=== PATIENT | female | born 1930 | race Caucasian/White ===

== ENCOUNTER 2017-03-30 14:15 | Emergency (ER) | payer MEDICARE, BC ==
--- NOTE | 2017-03-30 14:58 | EDM.PDOC ---
ED HISTORY OF PRESENT ILLNESS - General Chief Complaint: Respiratory Problem Stated Complaint: LEFT ARM BRUISING, SHORT OF BREATH Time Seen by Provider: 03/30/17 14:48 Source: Reports: Patient, Family, RN notes reviewed History Limitations: Reports: No limitations - History of Present Illness INITIAL COMMENTS - FREE TEXT/NARRATIVE: 86-year-old female presents emergency department today with complaint of shortness of breath, she states that over the last 3 or 4 days she's had more and more shortness of breath mainly when she exerts herself she feels fine at rest she also describes some chest discomfort may be rates 2/10 no diaphoresis no nausea vomiting - Related Data Allergies/ADRs: Allergies Allergy/AdvReac Type Severity Reaction Status Date / Time clindamycin Allergy Severe Difficulty Verified 11/26/16 10:26 Breathing ezetimibe [From Zetia] Allergy Severe Difficulty Verified 11/26/16 10:26 Breathing NSAIDS (Non-Steroidal Allergy Severe Airway Verified 11/26/16 10:26 Anti-Inflamma Tightness aspirin Allergy Intermediate Chest Pain Verified 11/26/16 10:26 ciprofloxacin HCl Allergy Rash Verified 11/26/16 10:26 [From Cipro] codeine Allergy Shortness Verified 11/26/16 10:26 of Breath pravastatin Allergy Other Verified 11/26/16 10:26 Sulfa (Sulfonamide Allergy Shortness Verified 12/23/16 09:37 Antibiotics) of Breath amoxicillin trihydrate AdvReac Stomach Verified 11/26/16 10:26 [From Augmentin] Upset atorvastatin calcium AdvReac Muscle Verified 11/26/16 10:26 [From Lipitor] Aches isosorbide mononitrate AdvReac Headache Verified 11/26/16 10:26 [From Imdur] morphine AdvReac Hallucinati Verified 11/26/16 10:26 ons potassium clavulanate AdvReac Stomach Verified 11/26/16 10:26 [From Augmentin] Upset pregabalin [From Lyrica] AdvReac Dizziness Verified 11/26/16 10:26 rosuvastatin calcium AdvReac Other Verified 11/26/16 10:26 [From Crestor] simvastatin [From Zocor] AdvReac Other Verified 11/26/16 10:26 Qlhjgqv-Glz-Egw Reductase AdvReac Muscle Verified 11/26/16 10:26 Inhibitor Aches Home Meds: Home Meds PARoxetine HCl [Paroxetine HCl] 20 mg PO DAILY 08/16/13 [History] Lactobacillus Acidophilus [Probiotic] 1 each PO DAILY 03/05/14 [History] Fluticasone Propionate [Flonase] 2 sprays INH ASDIRECTED PRN 07/05/14 [History] Nitroglycerin [Nitrostat] 0.4 mg SL ASDIRECTED 07/05/14 [History] Gabapentin 300 mg PO BID 07/24/14 [History] Arformoterol [Brovana] 1 puff INH BID PRN 08/04/15 [History] EPINEPHrine [Epipen] 0.3 mg IM ONETIME 08/04/15 [History] Furosemide [Lasix] 40 mg PO DAILY 08/04/15 [History] Levothyroxine [Synthroid] 112 mcg PO DAILY 08/04/15 [History] Omeprazole Magnesium [Prilosec Otc] 40 mg PO DAILY 08/04/15 [History] traZODone 40 mg PO BEDTIME PRN 08/04/15 [History] Acetaminophen [Tylenol] 650 mg PO Q4H PRN 12/09/15 [History] Meclizine [Antivert] 25 mg PO TID PRN 12/09/15 [History] Cetirizine [ZyrTEC] 10 mg PO DAILY 02/26/16 [History] Loperamide [Imodium AD] 2 mg PO TID PRN 02/28/16 [History] Warfarin [Coumadin] 2.5 - 5 mg PO ASDIRECTED 03/17/16 [History] Ferrous Sulfate [Iron] 325 mg PO DAILY 11/18/16 [History] cycloSPORINE [Restasis] 1 drop EYEBOTH BID 11/18/16 [History] Metoprolol Tartrate [Lopressor] 50 mg PO BID 11/26/16 [History] Past Medical History HEENT History: Reports: Allergic rhinitis, Cataract, Impaired vision, Sinusitis Cardiovascular History: Reports: Angina, Arrhythmia, Blood clots/VTE/DVT, CAD, Heart murmur, High cholesterol, Hypertension, [place], SOB on exertion Respiratory History: Reports: Bronchitis, recurrent, COPD, PE, Pneumonia, recurrent, Other (see below) Other Respiratory History: oxygen dependent @ times. 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: Dysfunctional uterine bleeding, Ectopic , Fibroids, , Spontaneous Musculoskeletal History: Reports: Arthritis, Back pain, chronic, Fibromyalgia, Neck pain, chronic, Osteoarthritis, Other (see below) Other Musculoskeletal History: polymyalgia miamyalgia Neurological History: Reports: Vertigo, Other (see below) Other Neuro History: bilateral optic neuropathy inner ear problems Psychiatric History: Reports: Anxiety, Depression Endocrine/Metabolic History: Reports: Hypothyroidism, Obesity/BMI 30+ Hematologic History: Reports: Anemia, Blood transfusion(s), Iron deficiency Oncologic (Cancer) History: Reports: Other (see below) Other Oncologic History: skin Dermatologic History: Reports: Other (see below) Other Dermatologic History: squamous cell CA- arm ,forehead - Infectious Disease History Infectious Disease History: Reports: C-difficile, Chicken pox, Hepatitis A, Measles, Mumps - Past Surgical History HEENT Surgical History: Reports: Cataract surgery, Laser surgery, Tonsillectomy Cardiovascular Surgical History: Reports: Percutaneous transluminal angioplasty GI Surgical History: Reports: Appendectomy, Cholecystectomy, Colonoscopy, EGD, Racquel fundoplication, Polypectomy, Small bowel Female Surgical History: Reports: Breast biopsy, D&C, Hysterectomy, Oophorectomy Musculoskeletal Surgical History: Reports: Knee replacement Other Musculoskeletal Surgeries/Procedures:: total right knee Oncologic Surgical History: Reports: Biopsy of breast Dermatological Surgical History: Reports: Skin biopsy Social & Family History - Family History Family Medical History: Noncontributory Cardiac: Reports: Afib - Tobacco Use Smoking Status *Q: Never Smoker Years of Tobacco use: 20 Packs/Tins Daily: 0.5 Used Tobacco, but Quit: Yes Month Tobacco Last Used: 03/1985 Second Hand Smoke Exposure: No - Caffeine Use Caffeine Use: Reports: Coffee, Soda - Alcohol Use Days Per Week of Alcohol Use: 0 Number of Drinks Per Day: 0 Total Drinks Per Week: 0 - Recreational Drug Use Recreational Drug Use: No ED ROS GENERAL - Review of Systems Review Of Systems: See Below Constitutional: Reports: no symptoms HEENT: Reports: No symptoms Respiratory: Reports: Shortness of Breath Cardiovascular: Reports: Chest pain, Dyspnea on exertion GI/Abdominal: Reports: No symptoms : Reports: no symptoms Musculoskeletal: Reports: no symptoms Skin: Reports: no symptoms ED EXAM, GENERAL - Physical Exam Exam: See Below Free Text/Narrative:: General: Elderly female, not in any distress, alert and oriented x3 HEENT: head is atraumatic normocephalic, eyes pupils equal round reactive to light, sclera clear no conjunctivitis appreciated. Ears tympanic membranes clear and clark landmarks and light reflex are present bilaterally canals are clear. Nose no septal deviation, nares are clear, no blood present. Mouth mucosa is moist and pink no erythema or exudate noted in soft palate, tongue is midline uvula is midline, dentition is intact. Neck: Supple no thyromegaly no tracheal deviation. Nodes: Cervical nodes subclavicular nodes nontender no palpable lymphadenopathy noted. Lungs: clear to auscultation bilaterally with symmetrical respirations, no adventitious noise appreciated. CV: Regular rate and rhythm S1 and S2 appreciated no murmurs rubs or gallops noted. Abdomen: Soft, nontender, no palpable masses or organomegaly appreciated, no distention no guarding bowel sounds are present, . Neuro: Cranial nerves II through XII grossly intact Skin: Large bruise left arm, with a bursitis sac over the left elbow Extremities: +1 pitting edema bilaterally . Course - Vital Signs Last Recorded V/S: Last Vital Signs Temp 97.9 F 03/30/17 14:42 Pulse 60 03/30/17 15:32 Resp 16 03/30/17 15:32 BP 173/91 H 03/30/17 15:32 Pulse Ox 95 03/30/17 15:32 - Orders/Labs/Meds Orders: Active Orders 24 hr Category Date Time Status Cardiac Monitoring [RC] .As Directed Care 03/30/17 14:54 Active EKG Documentation Completion [RC] ASDIRECTED Care 03/30/17 14:55 Active Chest 2V [CR] Stat Exams 03/30/17 14:55 Taken EKG 12 Lead [EK] Stat Ther 03/30/17 14:55 Ordered Labs: Laboratory Tests 03/30/17 03/30/17 03/30/17 Range/Units 15:08 15:08 15:08 WBC 12.2 H (4.5-11.0) K/uL RBC 4.36 (3.30-5.50) M/uL Hgb 12.4 (12.0-15.0) g/dL Hct 40.4 (36.0-48.0) % MCV 93 (80-98) fL MCH 28 (27-31) pg MCHC 31 L (32-36) % Plt Count 264 (150-400) K/uL Neut % (Auto) 67 H (36-66) % Lymph % (Auto) 22 L (24-44) % Rosebud % (Auto) 11 H (2-6) % Eos % (Auto) 0 L (2-4) % Baso % (Auto) 0 (0-1) % PT 16.6 H (9.5-12.0) sec INR 1.55 H (0.80-1.20) APTT 27.3 (27.0-36.0) sec Sodium 142 (140-148) mmol/L Potassium 3.4 L (3.6-5.2) mmol/L Chloride 105 (100-108) mmol/L Carbon Dioxide 35 H (21-32) mmol/L Anion Gap 5.4 (5.0-14.0) mmol/L BUN 20 H (7-18) mg/dL Creatinine 0.9 (0.6-1.0) mg/dL Est Cr Clr Drug Dosing 37.31 mL/min Estimated GFR (MDRD) 59 L (>60) Glucose 98 (74-106) mg/dL Calcium 7.9 L (8.5-10.1) mg/dL Total Bilirubin 0.4 (0.2-1.0) mg/dL AST 18 (15-37) U/L ALT 31 (12-78) U/L Alkaline Phosphatase 93 (46-116) U/L Troponin I < 0.017 (0.000-0.056) ng/mL Ypg-[id number]-Mtdkscbdxcs Pept 166 (5-450) pg/mL Total Protein 5.8 L (6.4-8.2) g/dL Albumin 2.4 L (3.4-5.0) g/dL Globulin 3.4 (2.3-3.5) g/dL Albumin/Globulin Ratio 0.7 L (1.2-2.2) Departure - Departure Time of Disposition: 15:56 Disposition: Home, Self-Care 01 Condition: fair Clinical Impression: Pneumonia Qualifiers: Pneumonia type: due to unspecified organism Laterality: right Lung location: lower lobe of lung Qualified Code(s): J18.1 - Lobar pneumonia, unspecified organism Forms: ED Department Discharge Additional Instructions: Take full course of antibiotics, Please followup with your primary care provider tomorrow, please call return to the emergency department with worsening of symptoms. - My Orders Last 24 Hours: My Active Orders 03/30/17 14:54 Cardiac Monitoring [RC] .As Directed 03/30/17 14:55 EKG Documentation Completion [RC] ASDIRECTED Chest 2V [CR] Stat EKG 12 Lead [EK] Stat - Assessment/Plan Last 24 Hours: My Active Orders 03/30/17 14:54 Cardiac Monitoring [RC] .As Directed 03/30/17 14:55 EKG Documentation Completion [RC] ASDIRECTED Chest 2V [CR] Stat EKG 12 Lead [EK] Stat Plan: Assessment Acuity = acute Site and laterality = community-acquired pneumonia complicated patient with known history of pulmonary embolism on chronic anticoagulation, coronary artery disease, hypertension and dyslipidemia with chronic obstructive pulmonary disease Etiology = suspicious for bacterial cause Manifestations = dyspnea on exertion Location of injury = home Lab values = WBC elevated at 12.2 consistent leukocytosis INR subtherapeutic at 1.55 potassium low at 3.4 consistent with hypokalemia albumin low at 2.4 consistent hypoalbuminemia EKG demonstrates a left axis deviation with no ST changes, chest x-ray shows an infiltrative process right lower lobe official read radiology is pending Plan I did discuss hospitalization with her however she declined her CURB 65 score is 2, she does have followup appointment with her primary care provider tomorrow she has multiple allergies difficult to pick an antibiotic she has done well with azithromycin in the past, therefore placed on a Z-Torsten followup with primary care tomorrow Patient was in agreement with the plan all questions were answered, they were instructed to return to the emergency department or call for worsening symptoms. This note was dictated using path intelligence voice recognition software please call with any questions.
[2017-03-30 15:34] VITALS: BP 173/91
--- NOTE | 2017-03-31 09:47 | CR ---
Mild cardiomegaly. Left lung is clear. Streaky density right lung base could indicate atelectasis on ly and would favor this. Developing infiltrate difficult to exclude.
== END 2017-03-30 16:06 | disposition home or self-care (01) ==
LOC: JP.ED 14:15
DX: J18.1 Lobar pneumonia, unspecified organism (principal); I20.9 Angina pectoris, unspecified; I25.2 Old myocardial infarction; I10 Essential (primary) hypertension; E78.00 Pure hypercholesterolemia, unspecified; J44.9 Chronic obstructive pulmonary disease, unspecified; I25.10 Atherosclerotic heart disease of native coronary artery without angina pectoris; K21.9 Gastro-esophageal reflux disease without esophagitis; F41.9 Anxiety disorder, unspecified; F32.9 Major depressive disorder, single episode, unspecified; E03.9 Hypothyroidism, unspecified; E66.9 Obesity, unspecified; Z85.828 Personal history of other malignant neoplasm of skin; Z98.49 Cataract extraction status, unspecified eye; Z90.49 Acquired absence of other specified parts of digestive tract; Z96.651 Presence of right artificial knee joint; Z90.710 Acquired absence of both cervix and uterus; Z90.721 Acquired absence of ovaries, unilateral; Z98.890 Other specified postprocedural states; Z86.718 Personal history of other venous thrombosis and embolism; Z79.01 Long term (current) use of anticoagulants; Z79.899 Other long term (current) drug therapy; Z88.1 Allergy status to other antibiotic agents; Z88.2 Allergy status to sulfonamides; Z88.5 Allergy status to narcotic agent; Z88.8 Allergy status to other drugs, medicaments and biological substances
CPT/HCPCS: 36415; 71020; 71020-26; 80053; 83880; 84484; 85025; 85610; 85730; 93005; 93010; 99283; 99285-25

== ENCOUNTER 2017-04-12 09:38 | Emergency (ER) | payer MEDICARE, BC ==
[2017-04-12 10:01] VITALS: BP 139/70
[2017-04-12] MEDS ORDERED: traMADol 50 MG Tab PO ONE (10:28)
--- NOTE | 2017-04-12 10:37 | EDM.PDOC ---
ED HPI GENERAL MEDICAL PROBLEM - General Chief Complaint: Respiratory Problem Stated Complaint: CHEST DISCOMFORT HURTS WHEN SHE MOVES Time Seen by Provider: 04/12/17 10:20 Source of Information: Reports: Patient, Old Records History Limitations: Reports: No Limitations - History of Present Illness INITIAL COMMENTS - FREE TEXT/NARRATIVE: 86 yo female presents with mid, central back pain of a couple days duration not responsive to acetaminophen. She denies injury. Is on warfarin and states her INR was 3.2 last Wednesday. No fever. Thinks she is more SOB than normal, but not orthopneic. No cough. Movement increases her back pain. Has a hx of recent pneumonia and also a hx of PE. 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: Acetaminophen Bilateral Chest Pain Score (Numeric/FACES): 4 - Related Data Allergies Allergy/AdvReac Type Severity Reaction Status Date / Time clindamycin Allergy Severe Difficulty Verified 11/26/16 10:26 Breathing ezetimibe [From Zetia] Allergy Severe Difficulty Verified 11/26/16 10:26 Breathing NSAIDS (Non-Steroidal Allergy Severe Airway Verified 11/26/16 10:26 Anti-Inflamma Tightness aspirin Allergy Intermediate Chest Pain Verified 11/26/16 10:26 ciprofloxacin HCl Allergy Rash Verified 11/26/16 10:26 [From Cipro] codeine Allergy Shortness Verified 11/26/16 10:26 of Breath pravastatin Allergy Other Verified 11/26/16 10:26 Sulfa (Sulfonamide Allergy Shortness Verified 12/23/16 09:37 Antibiotics) of Breath amoxicillin trihydrate AdvReac Stomach Verified 11/26/16 10:26 [From Augmentin] Upset atorvastatin calcium AdvReac Muscle Verified 11/26/16 10:26 [From Lipitor] Aches isosorbide mononitrate AdvReac Headache Verified 11/26/16 10:26 [From Imdur] morphine AdvReac Hallucinati Verified 11/26/16 10:26 ons potassium clavulanate AdvReac Stomach Verified 11/26/16 10:26 [From Augmentin] Upset pregabalin [From Lyrica] AdvReac Dizziness Verified 11/26/16 10:26 rosuvastatin calcium AdvReac Other Verified 11/26/16 10:26 [From Crestor] simvastatin [From Zocor] AdvReac Other Verified 11/26/16 10:26 Iimvndh-Sxw-Uyt Reductase AdvReac Muscle Verified 11/26/16 10:26 Inhibitor Aches Home Meds: Home Meds PARoxetine HCl [Paroxetine HCl] 20 mg PO DAILY 08/16/13 [History] Lactobacillus Acidophilus [Probiotic] 1 each PO DAILY 03/05/14 [History] Fluticasone Propionate [Flonase] 2 sprays INH ASDIRECTED PRN 07/05/14 [History] Nitroglycerin [Nitrostat] 0.4 mg SL ASDIRECTED 07/05/14 [History] Gabapentin 300 mg PO BID 07/24/14 [History] Arformoterol [Brovana] 1 puff INH BID PRN 08/04/15 [History] EPINEPHrine [Epipen] 0.3 mg IM ONETIME 08/04/15 [History] Furosemide [Lasix] 40 mg PO DAILY 08/04/15 [History] Levothyroxine [Synthroid] 112 mcg PO DAILY 08/04/15 [History] Omeprazole Magnesium [Prilosec Otc] 40 mg PO DAILY 08/04/15 [History] traZODone 40 mg PO BEDTIME PRN 08/04/15 [History] Acetaminophen [Tylenol] 650 mg PO Q4H PRN 12/09/15 [History] Meclizine [Antivert] 25 mg PO TID PRN 12/09/15 [History] Cetirizine [ZyrTEC] 10 mg PO DAILY 02/26/16 [History] Loperamide [Imodium AD] 2 mg PO TID PRN 02/28/16 [History] Warfarin [Coumadin] 2.5 - 5 mg PO ASDIRECTED 03/17/16 [History] Ferrous Sulfate [Iron] 325 mg PO DAILY 11/18/16 [History] cycloSPORINE [Restasis] 1 drop EYEBOTH BID 11/18/16 [History] Metoprolol Tartrate [Lopressor] 50 mg PO BID 11/26/16 [History] Past Medical History HEENT History: Reports: Allergic Rhinitis, Cataract, Impaired Vision, Sinusitis Cardiovascular History: Reports: Angina, Arrhythmia, Blood Clots/VTE/DVT, CAD, Heart Murmur, High Cholesterol, Hypertension, [place], SOB on Exertion Respiratory History: Reports: Bronchitis, Recurrent, COPD, PE, Pneumonia, Recurrent, Other (See Below) Other Respiratory History: oxygen dependent @ times. 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: Dysfunctional Uterine Bleeding, Ectopic , Fibroids, , Spontaneous Musculoskeletal History: Reports: Arthritis, Back Pain, Chronic, Fibromyalgia, Neck Pain, Chronic, Osteoarthritis, Other (See Below) Other Musculoskeletal History: polymyalgia miamyalgia Neurological History: Reports: Vertigo, Other (See Below) Other Neuro History: bilateral optic neuropathy inner ear problems Psychiatric History: Reports: Anxiety, Depression Endocrine/Metabolic History: Reports: Hypothyroidism, Obesity/BMI 30+ Hematologic History: Reports: Anemia, Blood Transfusion(s), Iron Deficiency Oncologic (Cancer) History: Reports: Other (See Below) Other Oncologic History: skin cancer Dermatologic History: Reports: Other (See Below) Other Dermatologic History: squamous cell CA- arm ,forehead - Infectious Disease History Infectious Disease History: Reports: Chicken Pox, Measles, Mumps - Past Surgical History HEENT Surgical History: Reports: Cataract Surgery, Laser Surgery, Tonsillectomy Cardiovascular Surgical History: Reports: Percutaneous Transluminal Angioplasty GI Surgical History: Reports: Appendectomy, Cholecystectomy, Colonoscopy, EGD, Racquel Fundoplication, Polypectomy, Small Bowel Female Surgical History: Reports: Breast Biopsy, D&C, Hysterectomy, Oophorectomy Musculoskeletal Surgical History: Reports: Knee Replacement Oncologic Surgical History: Reports: Biopsy of Breast Dermatological Surgical History: Reports: Skin Biopsy Social & Family History - Family History Family Medical History: Noncontributory Cardiac: Reports: Afib - Tobacco Use Smoking Status *Q: Never Smoker Years of Tobacco use: 20 Packs/Tins Daily: 0.5 Used Tobacco, but Quit: Yes Month Tobacco Last Used: 03/1985 Second Hand Smoke Exposure: No - Caffeine Use Caffeine Use: Reports: None - Alcohol Use Days Per Week of Alcohol Use: 0 Number of Drinks Per Day: 0 Total Drinks Per Week: 0 - Recreational Drug Use Recreational Drug Use: No ED ROS GENERAL - Review of Systems Review Of Systems: See Below Constitutional: Reports: No Symptoms HEENT: Reports: No Symptoms Respiratory: Reports: Shortness of Breath Cardiovascular: Reports: Chest Pain (Pain wraps around her chest from the back to the front.) GI/Abdominal: Reports: No Symptoms : Reports: No Symptoms Musculoskeletal: Reports: Back Pain Skin: Reports: No Symptoms Neurological: Reports: No Symptoms ED EXAM, GENERAL - Physical Exam Exam: See Below Exam Limited By: No Limitations General Appearance: Alert, WD/WN, No Apparent Distress Eye Exam: Bilateral Eye: Normal Inspection Ears: Normal External Exam, Normal Canal, Hearing Grossly Normal, Normal TMs Ear Exam: Bilateral Ear: Auricle Normal, Canal Normal, TM normal Nose: Normal Inspection, Normal Mucosa, No Blood Throat/Mouth: Normal Inspection, Normal Lips, Normal Gums, Normal Oropharynx, Normal Voice, No Airway Compromise Head: Atraumatic, Normocephalic Neck: Normal Inspection, Supple, Non-Tender Respiratory/Chest: No Respiratory Distress, Lungs Clear, Normal Breath Sounds, No Accessory Muscle Use Cardiovascular: Regular Rate, Rhythm, No Edema GI/Abdominal: Soft, Non-Tender, No Distention Back Exam: Normal Inspection, Vertebral Tenderness (mid T-spine). No: CVA Tenderness (R), CVA Tenderness (L) Extremities: Pedal Edema (mostly of the feet and ankles. Support stockings present.) Neurological: Alert, Oriented, CN II-XII Intact, Normal Cognition, No Motor/ Sensory Deficits Psychiatric: Normal Affect, Normal Mood Skin Exam: Warm, Dry, Intact, Normal Color, No Rash Lymphatic: No Adenopathy Course - Vital Signs Text/Narrative:: Tramadol 50 mg po, KCL 40 meq po, acetaminophen 1000 mg po CXR-poor inspiration, otherwise neg I-fbutp-opaqngc compression fx of T7 new since last CT of this area. Last Recorded V/S: Last Vital Signs Temp 36.6 C 04/12/17 10:07 Pulse 73 04/12/17 10:07 Resp 16 04/12/17 10:07 BP 139/70 04/12/17 10:07 Pulse Ox 90 L 04/12/17 10:07 - Orders/Labs/Meds Orders: Active Orders 24 hr Category Date Time Status Thoracic Spine 2V [CR] Stat Exams 04/12/17 11:03 Taken Acetaminophen [Tylenol Extra Strength] Med 04/12/17 11:29 Once 1,000 mg PO ONETIME ONE Labs: Laboratory Tests 04/12/17 04/12/17 04/12/17 Range/Units 10:29 10:29 10:29 WBC 9.4 (4.5-11.0) K/uL RBC 4.11 (3.30-5.50) M/uL Hgb 11.9 L (12.0-15.0) g/dL Hct 39.3 (36.0-48.0) % MCV 96 (80-98) fL MCH 29 (27-31) pg MCHC 30 L (32-36) % Plt Count 213 (150-400) K/uL PT 27.1 H (9.5-12.0) sec INR 2.49 H (0.80-1.20) Sodium 141 (140-148) mmol/L Potassium 3.3 L (3.6-5.2) mmol/L Chloride 103 (100-108) mmol/L Carbon Dioxide 35 H (21-32) mmol/L Anion Gap 6.3 (5.0-14.0) mmol/L BUN 15 (7-18) mg/dL Creatinine 1.0 (0.6-1.0) mg/dL Est Cr Clr Drug Dosing 33.58 mL/min Estimated GFR (MDRD) 52 L (>60) Glucose 178 H (74-106) mg/dL Calcium 8.1 L (8.5-10.1) mg/dL Troponin I < 0.017 (0.000-0.056) ng/mL Meds: Medications Discontinued Medications Generic Name Dose Route Start Last Admin Trade Name Freq PRN Reason Stop Dose Admin Potassium Chloride 40 meq 04/12/17 11:05 04/12/17 11:22 Potassium Chloride PO 04/12/17 11:06 40 meq ONETIME ONE Administration Tramadol HCl 50 mg 04/12/17 10:28 04/12/17 10:40 Ultram PO 04/12/17 10:29 50 mg ONETIME ONE Administration Departure - Departure Time of Disposition: 11:45 Disposition: Home, Self-Care 01 Condition: good Clinical Impression: Compression fx, thoracic spine Qualifiers: Encounter type: initial encounter Fracture type: closed Qualified Code(s): S22.000A - Wedge compression fracture of unspecified thoracic vertebra, initial encounter for closed fracture - Discharge Information Forms: ED Department Discharge - My Orders Last 24 Hours: My Active Orders 04/12/17 11:03 Thoracic Spine 2V [CR] Stat 04/12/17 11:29 Acetaminophen [Tylenol Extra Strength] 1,000 mg PO ONETIME ONE - Assessment/Plan Last 24 Hours: My Active Orders 04/12/17 11:03 Thoracic Spine 2V [CR] Stat 04/12/17 11:29 Acetaminophen [Tylenol Extra Strength] 1,000 mg PO ONETIME ONE
[2017-04-12] MEDS ORDERED: Potassium Chloride 10 MEQ Cap.ER PO ONE (11:05)
--- NOTE | 2017-04-12 11:08 | CR ---
Chest 1V Frontal HISTORY: SOB, T-spine pain COMPARISON: 08/04/2015 FINDINGS: Probable linear atelectasis or scarring right lung base appears similar to the prior exam. Remainder the chest is clear. There is incomplete inspiration. Heart appears mildly enlarged. No va scular redistribution or pleural fluid is seen. Remainder the chest is stable. IMPRESSION: 1. Mild cardiomegaly without evidence for decompensation. 2. Probable mild linear atelectasis or scarring right lung base is similar to exam of 08/04/2015.
[2017-04-12] MEDS ORDERED: Acetaminophen 500 MG Tab PO ONE (11:29)
--- NOTE | 2017-04-12 11:37 | CR ---
Thoracic Spine 2V HISTORY: pain without injury FINDINGS: Bony structures are osteopenic. There appears to be mild anterior wedging of approximately the T7 vertebral body consistent with a mild compression fracture. Acute is indeterminate, however, no compression fracture is seen on CT chest exam of 07/24/2014. No other compression fractures ident ified. Vertebral body alignment is satisfactory. There is mild scoliosis of the thoracolumbar spine convex to the right. IMPRESSION: Generalized osteopenia. Thoracolumbar scoliosis convex to the right. Mild wedge compress ion fracture of approximately the T7 vertebral body. Acuity is indeterminate. This was not present o n the prior CT chest exam from 07/24/2014.
== END 2017-04-12 12:00 | disposition home or self-care (01) ==
LOC: JP.ED 09:38
DX: S22.000A Wedge compression fracture of unspecified thoracic vertebra, initial encounter for closed fracture (principal); E87.6 Hypokalemia; I20.9 Angina pectoris, unspecified; I10 Essential (primary) hypertension; I25.2 Old myocardial infarction; J44.9 Chronic obstructive pulmonary disease, unspecified; K21.9 Gastro-esophageal reflux disease without esophagitis; F41.9 Anxiety disorder, unspecified; F32.9 Major depressive disorder, single episode, unspecified; E03.9 Hypothyroidism, unspecified; E66.9 Obesity, unspecified; Z68.35 Body mass index [BMI] 35.0-35.9, adult; Z86.711 Personal history of pulmonary embolism; Z86.718 Personal history of other venous thrombosis and embolism; Z85.828 Personal history of other malignant neoplasm of skin; Z87.01 Personal history of pneumonia (recurrent); Z98.49 Cataract extraction status, unspecified eye; Z90.49 Acquired absence of other specified parts of digestive tract; Z90.710 Acquired absence of both cervix and uterus; Z90.721 Acquired absence of ovaries, unilateral; Z96.659 Presence of unspecified artificial knee joint; Z98.890 Other specified postprocedural states; Z79.01 Long term (current) use of anticoagulants; Z79.899 Other long term (current) drug therapy; Z88.1 Allergy status to other antibiotic agents; Z88.2 Allergy status to sulfonamides; Z88.5 Allergy status to narcotic agent; Z88.8 Allergy status to other drugs, medicaments and biological substances
CPT/HCPCS: 36415; 71010; 72070; 80048; 84484; 85027; 85610; 99284; A9270; 99283

== ENCOUNTER 2017-05-12 10:14 | Inpatient (IN) | payer MEDICARE, BC ==
[2017-05-12] MEDS ORDERED: Sodium Chloride 0.9% 10 ML Syringe FLUSH PRN ×3 (10:25→16:40)
[2017-05-12] MEDS ORDERED: Lactated Ringers 1,000 ML IV ONE (10:25)
[2017-05-12] MEDS ORDERED: Ketorolac 30 MG/ML SDV IVPUSH ONE (10:42)
--- NOTE | 2017-05-12 10:42 | EDM.PDOC ---
ED HPI GENERAL MEDICAL PROBLEM - General Chief Complaint: Respiratory Problem Stated Complaint: WEAK AND BACK IS HURTING Time Seen by Provider: 05/12/17 10:25 Source of Information: Reports: Patient, EMS, Family, Old Records, RN Notes Reviewed History Limitations: Reports: Respiratory Distress - History of Present Illness INITIAL COMMENTS - FREE TEXT/NARRATIVE: 86-year-old female presents emergency department day complaint of shortness of breath, she states she has developed over the last couple days last night significantly short of breath when she is lying down sputum production large amount of green in nature. Was recently treated for walking pneumonia with azithromycin. States she completed the course of antibiotics, states her last chest x-ray still showed some residual aspect in the right lower lobe, also has a history of a compression fracture Back Pain Score (Numeric/FACES): 8 - Related Data Allergies Allergy/AdvReac Type Severity Reaction Status Date / Time clindamycin Allergy Severe Difficulty Verified 05/12/17 10:30 Breathing ezetimibe [From Zetia] Allergy Severe Difficulty Verified 05/12/17 10:30 Breathing NSAIDS (Non-Steroidal Allergy Severe Airway Verified 05/12/17 10:30 Anti-Inflamma Tightness aspirin Allergy Intermediate Chest Pain Verified 05/12/17 10:30 ciprofloxacin HCl Allergy Rash Verified 05/12/17 10:30 [From Cipro] codeine Allergy Shortness Verified 05/12/17 10:30 of Breath pravastatin Allergy Other Verified 05/12/17 10:30 Sulfa (Sulfonamide Allergy Shortness Verified 05/12/17 10:30 Antibiotics) of Breath amoxicillin trihydrate AdvReac Stomach Verified 05/12/17 10:30 [From Augmentin] Upset atorvastatin calcium AdvReac Muscle Verified 05/12/17 10:30 [From Lipitor] Aches isosorbide mononitrate AdvReac Headache Verified 05/12/17 10:30 [From Imdur] morphine AdvReac Hallucinati Verified 05/12/17 10:30 ons potassium clavulanate AdvReac Stomach Verified 05/12/17 10:30 [From Augmentin] Upset pregabalin [From Lyrica] AdvReac Dizziness Verified 05/12/17 10:30 rosuvastatin calcium AdvReac Other Verified 05/12/17 10:30 [From Crestor] simvastatin [From Zocor] AdvReac Other Verified 05/12/17 10:30 Bepydje-Exb-Axu Reductase AdvReac Muscle Verified 05/12/17 10:30 Inhibitor Aches Home Meds: Home Meds PARoxetine HCl [Paroxetine HCl] 20 mg PO DAILY 08/16/13 [History] Lactobacillus Acidophilus [Probiotic] 1 each PO DAILY 03/05/14 [History] Fluticasone Propionate [Flonase] 2 sprays INH ASDIRECTED PRN 07/05/14 [History] Nitroglycerin [Nitrostat] 0.4 mg SL ASDIRECTED 07/05/14 [History] Gabapentin 300 mg PO BID 07/24/14 [History] Arformoterol [Brovana] 1 puff INH BID PRN 08/04/15 [History] EPINEPHrine [Epipen] 0.3 mg IM ONETIME 08/04/15 [History] Furosemide [Lasix] 40 mg PO DAILY 08/04/15 [History] Levothyroxine [Synthroid] 112 mcg PO DAILY 08/04/15 [History] Omeprazole Magnesium [Prilosec Otc] 40 mg PO DAILY 08/04/15 [History] traZODone 25 mg PO BEDTIME PRN 08/04/15 [History] Acetaminophen [Tylenol] 650 mg PO Q4H PRN 12/09/15 [History] Meclizine [Antivert] 25 mg PO TID PRN 12/09/15 [History] Cetirizine [ZyrTEC] 10 mg PO DAILY 02/26/16 [History] Loperamide [Imodium AD] 2 mg PO TID PRN 02/28/16 [History] Warfarin [Coumadin] 2.5 - 5 mg PO ASDIRECTED 03/17/16 [History] Ferrous Sulfate [Iron] 325 mg PO DAILY 11/18/16 [History] cycloSPORINE [Restasis] 1 drop EYEBOTH BID 11/18/16 [History] Metoprolol Tartrate [Lopressor] 50 mg PO BID 11/26/16 [History] Cholestyramine/Aspartame [Questran Light Powder] 4 gm PO DAILY 05/12/17 [History ] Cyclobenzaprine [Flexeril] 10 mg PO BEDTIME PRN 05/12/17 [History] predniSONE [Prednisone] 10 mg PO DAILY 05/12/17 [History] traMADol [Ultram] 50 - 100 mg PO Q8H PRN 05/12/17 [History] Past Medical History HEENT History: Reports: Allergic Rhinitis, Cataract, Impaired Vision, Sinusitis Cardiovascular History: Reports: Angina, Arrhythmia, Blood Clots/VTE/DVT, CAD, Heart Murmur, High Cholesterol, Hypertension, FL, SOB on Exertion Respiratory History: Reports: Bronchitis, Recurrent, COPD, PE, Pneumonia, Recurrent, Other (See Below) Other Respiratory History: oxygen dependent @ times. lung nodules Gastrointestinal History: Reports: Chronic Diarrhea, Colon Polyp, Gastritis, GERD, Hemorrhoids, Hepatitis, Hiatal Hernia, Irritable Bowel Syndrome, Other ( See Below) Other Gastrointestinal History: thickening c diff x2 Genitourinary History: Reports: Urinary Incontinence DATABASE MARKETING SPECIALIST History: Reports: Dysfunctional Uterine Bleeding, Ectopic , Fibroids, , Spontaneous Musculoskeletal History: Reports: Arthritis, Back Pain, Chronic, Fibromyalgia, Neck Pain, Chronic, Osteoarthritis, Other (See Below) Other Musculoskeletal History: polymyalgia miamyalgia Neurological History: Reports: Vertigo, Other (See Below) Other Neuro History: bilateral optic neuropathy inner ear problems Psychiatric History: Reports: Anxiety, Depression Endocrine/Metabolic History: Reports: Hypothyroidism, Obesity/BMI 30+ Hematologic History: Reports: Anemia, Blood Transfusion(s), Iron Deficiency Oncologic (Cancer) History: Reports: Other (See Below) Other Oncologic History: skin cancer Dermatologic History: Reports: Other (See Below) Other Dermatologic History: squamous cell CA- arm ,forehead - Infectious Disease History Infectious Disease History: Reports: Chicken Pox, Measles, Mumps - Past Surgical History HEENT Surgical History: Reports: Cataract Surgery, Laser Surgery, Tonsillectomy Cardiovascular Surgical History: Reports: Percutaneous Transluminal Angioplasty GI Surgical History: Reports: Appendectomy, Cholecystectomy, Colonoscopy, EGD, [place] Fundoplication, Polypectomy, Small Bowel Female Surgical History: Reports: Breast Biopsy, D&C, Hysterectomy, Oophorectomy Musculoskeletal Surgical History: Reports: Knee Replacement Oncologic Surgical History: Reports: Biopsy of Breast Dermatological Surgical History: Reports: Skin Biopsy Social & Family History - Family History Family Medical History: Noncontributory Cardiac: Reports: Afib - Tobacco Use Smoking Status *Q: Never Smoker Years of Tobacco use: 20 Packs/Tins Daily: 0.5 Used Tobacco, but Quit: Yes Month Tobacco Last Used: 03/1985 Second Hand Smoke Exposure: No - Caffeine Use Caffeine Use: Reports: None - Alcohol Use Days Per Week of Alcohol Use: 0 Number of Drinks Per Day: 0 Total Drinks Per Week: 0 - Recreational Drug Use Recreational Drug Use: No ED ROS GENERAL - Review of Systems Review Of Systems: See Below Constitutional: Reports: Chills, Weakness HEENT: Reports: No Symptoms Respiratory: Reports: Shortness of Breath, Wheezing, Cough, Sputum Cardiovascular: Reports: No Symptoms GI/Abdominal: Reports: No Symptoms : Reports: No Symptoms Musculoskeletal: Reports: No Symptoms Skin: Reports: No Symptoms Neurological: Reports: No Symptoms ED EXAM, GENERAL - Physical Exam Exam: See Below Free Text/Narrative:: General: Elderly female mild respiratory distress, alert and oriented x3 HEENT: head is atraumatic normocephalic, eyes pupils equal round reactive to light, sclera clear no conjunctivitis appreciated. Ears tympanic membranes clear and clark landmarks and light reflex are present bilaterally canals are clear. Nose no septal deviation, nares are clear, no blood present. Mouth mucosa is moist and pink no erythema or exudate noted in soft palate, tongue is midline uvula is midline, dentition is intact. Neck: Supple no thyromegaly no tracheal deviation. Nodes: Cervical nodes subclavicular nodes nontender no palpable lymphadenopathy noted. Lungs: Crackles and rhonchi throughout all lung woods bilaterally CV: Regular rate and rhythm S1 and S2 appreciated no murmurs rubs or gallops noted. Abdomen: Soft, nontender, no palpable masses or organomegaly appreciated, no distention no guarding bowel sounds are present, . Neuro: Cranial nerves II through XII grossly intact Skin: Warm and dry, intact Extremities: No lower extremity edema appreciated. Course - Vital Signs Last Recorded V/S: Last Vital Signs Temp 96.3 F 05/12/17 11:59 Pulse 77 05/12/17 11:59 Resp 14 05/12/17 11:59 BP 144/72 H 05/12/17 11:59 Pulse Ox 90 L 05/12/17 11:59 - Orders/Labs/Meds Orders: Active Orders 24 hr Category Date Time Status EKG Documentation Completion [RC] ASDIRECTED Care 05/12/17 10:27 Active Peripheral IV Care [RC] . DIRECTED Care 05/12/17 10:26 Active AMMONIA VENOUS [CHEM] Stat Lab 05/12/17 12:29 Ordered CULTURE BLOOD [BC] Stat Lab 05/12/17 10:35 Received CULTURE BLOOD [BC] Urgent Lab 05/12/17 10:45 Received UA W/MICROSCOPIC [URIN] Stat Lab 05/12/17 10:27 Uncollected Levofloxacin/Dextrose 5%-Water [Levaquin in D5W 500 MG/ Med 05/12/17 13:21 Ordered 100 ML] 500 mg Premix Bag 1 bag IV ONETIME Sodium Chloride 0.9% [Saline Flush] Med 05/12/17 10:25 Active 10 ml FLUSH ASDIRECTED PRN Sodium Chloride 0.9% [Saline Flush] Med 05/12/17 12:33 Active 10 ml FLUSH ONETIME PRN methylPREDNISolone Sod Succ [Solu-MEDROL] Med 05/12/17 13:21 Once 40 mg IVPUSH ONETIME ONE Blood Culture x2 Reflex Set [OM.PC] Urgent Oth 05/12/17 10:27 Ordered Peripheral IV Insertion Adult [OM.PC] Urgent Oth 05/12/17 10:25 Ordered EKG 12 Lead [EK] Urgent Ther 05/12/17 10:25 Ordered Medication Orders Sodium Chloride (Saline Flush) 10 ml FLUSH ASDIRECTED PRN PRN Reason: Keep Vein Open Sodium Chloride (Saline Flush) 10 ml FLUSH ONETIME PRN PRN Reason: PER RADIOLOGY PROTOCOL Last Admin: 05/12/17 12:45 Dose: 10 ml Labs: Laboratory Tests 05/12/17 05/12/17 05/12/17 Range/Units 10:25 10:35 10:35 WBC (4.5-11.0) K/uL RBC (3.30-5.50) M/uL Hgb (12.0-15.0) g/dL Hct (36.0-48.0) % MCV (80-98) fL MCH (27-31) pg MCHC (32-36) % Plt Count (150-400) K/uL Neut % (Auto) (36-66) % Lymph % (Auto) (24-44) % [place] % (Auto) (2-6) % Eos % (Auto) (2-4) % Baso % (Auto) (0-1) % PT (9.5-12.0) sec INR (0.80-1.20) APTT (27.0-36.0) sec Puncture Site Lt brachial ABG pH 7.423 (7.350-7.450) ABG pCO2 52.1 H (35.0-42.0) mmHg ABG pO2 86.8 (75.0-100.0) mmHg ABG HCO3 33.4 H (22.0-26.0) mmol/L ABG Total CO2 29.4 H (21.0-25.0) mmol/L ABG O2 Saturation 96.7 (95.0-98.0) % ABG O2 Content 18.1 (15.0-23.0) %vol ABG Base Excess 7.8 mm/L ABG Hemoglobin 13.6 (12.0-16.0) g/dL ABG Oxyhemoglobin 94.3 % ABG Carboxyhemoglobin 1.7 H (0.0-1.6) % ABG Methemoglobin 0.8 % Jordan Test None O2 Delivery Device Nasal cannula Oxygen Flow Rate 2 L Sodium (140-148) mmol/L Potassium (3.6-5.2) mmol/L Chloride (100-108) mmol/L Carbon Dioxide (21-32) mmol/L Anion Gap (5.0-14.0) mmol/L BUN (7-18) mg/dL Creatinine (0.6-1.0) mg/dL Est Cr Clr Drug Dosing mL/min Estimated GFR (MDRD) (>60) Glucose (74-106) mg/dL Lactic Acid 1.3 (0.4-2.0) mmol/L Calcium (8.5-10.1) mg/dL Total Bilirubin (0.2-1.0) mg/dL AST (15-37) U/L ALT (12-78) U/L Alkaline Phosphatase (46-116) U/L Troponin I (0.000-0.056) ng/mL C-Reactive Protein 10.50 H (0.0-0.3) mg/dL Total Protein (6.4-8.2) g/dL Albumin (3.4-5.0) g/dL Globulin (2.3-3.5) g/dL Albumin/Globulin Ratio (1.2-2.2) 05/12/17 05/12/17 05/12/17 Range/Units 10:35 10:35 10:39 WBC 14.2 H (4.5-11.0) K/uL RBC 4.64 (3.30-5.50) M/uL Hgb 13.6 (12.0-15.0) g/dL Hct 44.5 (36.0-48.0) % MCV 96 (80-98) fL MCH 29 (27-31) pg MCHC 31 L (32-36) % Plt Count 245 (150-400) K/uL Neut % (Auto) 78 H (36-66) % Lymph % (Auto) 11 L (24-44) % [place] % (Auto) 9 H (2-6) % Eos % (Auto) 1 L (2-4) % Baso % (Auto) 0 (0-1) % PT 17.3 H (9.5-12.0) sec INR 1.59 H (0.80-1.20) APTT 32.8 (27.0-36.0) sec Puncture Site ABG pH (7.350-7.450) ABG pCO2 (35.0-42.0) mmHg ABG pO2 (75.0-100.0) mmHg ABG HCO3 (22.0-26.0) mmol/L ABG Total CO2 (21.0-25.0) mmol/L ABG O2 Saturation (95.0-98.0) % ABG O2 Content (15.0-23.0) %vol ABG Base Excess mm/L ABG Hemoglobin (12.0-16.0) g/dL ABG Oxyhemoglobin % ABG Carboxyhemoglobin (0.0-1.6) % ABG Methemoglobin % Jordan Test O2 Delivery Device Oxygen Flow Rate L Sodium (140-148) mmol/L Potassium (3.6-5.2) mmol/L Chloride (100-108) mmol/L Carbon Dioxide (21-32) mmol/L Anion Gap (5.0-14.0) mmol/L BUN (7-18) mg/dL Creatinine (0.6-1.0) mg/dL Est Cr Clr Drug Dosing mL/min Estimated GFR (MDRD) (>60) Glucose (74-106) mg/dL Lactic Acid (0.4-2.0) mmol/L Calcium (8.5-10.1) mg/dL Total Bilirubin (0.2-1.0) mg/dL AST (15-37) U/L ALT (12-78) U/L Alkaline Phosphatase (46-116) U/L Troponin I (0.000-0.056) ng/mL C-Reactive Protein (0.0-0.3) mg/dL Total Protein (6.4-8.2) g/dL Albumin (3.4-5.0) g/dL Globulin (2.3-3.5) g/dL Albumin/Globulin Ratio (1.2-2.2) 05/12/17 Range/Units 10:39 WBC (4.5-11.0) K/uL RBC (3.30-5.50) M/uL Hgb (12.0-15.0) g/dL Hct (36.0-48.0) % MCV (80-98) fL MCH (27-31) pg MCHC (32-36) % Plt Count (150-400) K/uL Neut % (Auto) (36-66) % Lymph % (Auto) (24-44) % [place] % (Auto) (2-6) % Eos % (Auto) (2-4) % Baso % (Auto) (0-1) % PT (9.5-12.0) sec INR (0.80-1.20) APTT (27.0-36.0) sec Puncture Site ABG pH (7.350-7.450) ABG pCO2 (35.0-42.0) mmHg ABG pO2 (75.0-100.0) mmHg ABG HCO3 (22.0-26.0) mmol/L ABG Total CO2 (21.0-25.0) mmol/L ABG O2 Saturation (95.0-98.0) % ABG O2 Content (15.0-23.0) %vol ABG Base Excess mm/L ABG Hemoglobin (12.0-16.0) g/dL ABG Oxyhemoglobin % ABG Carboxyhemoglobin (0.0-1.6) % ABG Methemoglobin % Jordan Test O2 Delivery Device Oxygen Flow Rate L Sodium 138 L (140-148) mmol/L Potassium 3.7 (3.6-5.2) mmol/L Chloride 101 (100-108) mmol/L Carbon Dioxide 35 H (21-32) mmol/L Anion Gap 5.7 (5.0-14.0) mmol/L BUN 16 (7-18) mg/dL Creatinine 1.0 (0.6-1.0) mg/dL Est Cr Clr Drug Dosing 33.58 mL/min Estimated GFR (MDRD) 52 L (>60) Glucose 100 (74-106) mg/dL Lactic Acid (0.4-2.0) mmol/L Calcium 8.7 (8.5-10.1) mg/dL Total Bilirubin 0.6 (0.2-1.0) mg/dL AST 125 H D (15-37) U/L ALT 119 H (12-78) U/L Alkaline Phosphatase 170 H D (46-116) U/L Troponin I < 0.017 (0.000-0.056) ng/mL C-Reactive Protein (0.0-0.3) mg/dL Total Protein 6.6 (6.4-8.2) g/dL Albumin 2.6 L (3.4-5.0) g/dL Globulin 4.0 H (2.3-3.5) g/dL Albumin/Globulin Ratio 0.7 L (1.2-2.2) Meds: Medications Generic Name Dose Route Start Last Admin Trade Name Freq PRN Reason Stop Dose Admin Sodium Chloride 10 ml 05/12/17 10:25 Saline Flush FLUSH ASDIRECTED PRN Keep Vein Open Sodium Chloride 10 ml 05/12/17 12:33 05/12/17 12:45 Saline Flush FLUSH 10 ml ONETIME PRN Administration PER RADIOLOGY PROTOCOL Discontinued Medications Generic Name Dose Route Start Last Admin Trade Name Freq PRN Reason Stop Dose Admin Lactated Ringer's 1,000 mls @ 500 mls/hr 05/12/17 10:25 05/12/17 10:48 Ringers, Lactated IV 05/12/17 12:24 500 mls/hr ASDIRECTED ONE Administration Sodium Chloride 75 mls @ 3 mls/sec 05/12/17 12:33 05/12/17 12:45 Normal Saline IV 05/12/17 12:34 3 mls/sec ONETIME ONE Administration Iopamidol 100 ml 05/12/17 12:33 05/12/17 12:45 Isovue-300 (61%) IV 05/12/17 12:34 100 ml . DIRECTED PRN Administration RADIOLOGY EXAM Ketorolac Tromethamine 30 mg 05/12/17 10:42 05/12/17 10:52 Toradol IVPUSH 05/12/17 10:43 30 mg ONETIME ONE Administration Ondansetron HCl 4 mg 05/12/17 12:28 05/12/17 12:32 Zofran IVPUSH 05/12/17 12:29 4 mg ONETIME ONE Administration Departure - Departure Time of Disposition: 13:23 Disposition: Admitted As Inpatient 64 Condition: Fair Clinical Impression: Bronchitis Compression fx, thoracic spine Qualifiers: Encounter type: initial encounter Fracture type: closed Qualified Code(s): S22.000A - Wedge compression fracture of unspecified thoracic vertebra, initial encounter for closed fracture Forms: ED Department Discharge - My Orders Last 24 Hours: My Active Orders 05/12/17 10:25 Sodium Chloride 0.9% [Saline Flush] 10 ml FLUSH ASDIRECTED PRN Peripheral IV Insertion Adult [OM.PC] Urgent EKG 12 Lead [EK] Urgent 05/12/17 10:26 Peripheral IV Care [RC] . DIRECTED 05/12/17 10:27 EKG Documentation Completion [RC] ASDIRECTED UA W/MICROSCOPIC [URIN] Stat Blood Culture x2 Reflex Set [OM.PC] Urgent 05/12/17 10:35 CULTURE BLOOD [BC] Stat 05/12/17 10:45 CULTURE BLOOD [BC] Urgent 05/12/17 12:29 AMMONIA VENOUS [CHEM] Stat 05/12/17 12:33 Sodium Chloride 0.9% [Saline Flush] 10 ml FLUSH ONETIME PRN 05/12/17 13:21 Levofloxacin/Dextrose 5%-Water [Levaquin in D5W 500 MG/100 ML] 500 mg Premix Bag 1 bag IV ONETIME methylPREDNISolone Sod Succ [Solu-MEDROL] 40 mg IVPUSH ONETIME ONE - Assessment/Plan Last 24 Hours: My Active Orders 05/12/17 10:25 Sodium Chloride 0.9% [Saline Flush] 10 ml FLUSH ASDIRECTED PRN Peripheral IV Insertion Adult [OM.PC] Urgent EKG 12 Lead [EK] Urgent 05/12/17 10:26 Peripheral IV Care [RC] . DIRECTED 05/12/17 10:27 EKG Documentation Completion [RC] ASDIRECTED UA W/MICROSCOPIC [URIN] Stat Blood Culture x2 Reflex Set [OM.PC] Urgent 05/12/17 10:35 CULTURE BLOOD [BC] Stat 05/12/17 10:45 CULTURE BLOOD [BC] Urgent 05/12/17 12:29 AMMONIA VENOUS [CHEM] Stat 05/12/17 12:33 Sodium Chloride 0.9% [Saline Flush] 10 ml FLUSH ONETIME PRN 05/12/17 13:21 Levofloxacin/Dextrose 5%-Water [Levaquin in D5W 500 MG/100 ML] 500 mg Premix Bag 1 bag IV ONETIME methylPREDNISolone Sod Succ [Solu-MEDROL] 40 mg IVPUSH ONETIME ONE Plan: Assessment Acuity = acute Site and laterality = hypoxia, again the patient with known history of coronary artery disease, history of pulmonary embolism on chronic anticoagulation, history of polymyalgia rheumatica and hypothyroidism also history of nocturnal hypoxia with oxygen use at night Etiology = unknown Manifestations = hypoxic Location of injury = home Lab values = WBC elevated at 14.2 consistent with leukocytosis, INR subtherapeutic at 1.59, ABG 7.42 with PCO2 52.1 PO2 of 86 and a bicarbonate of 33.4, sodium low at 138 consistent hyponatremia AST elevated 125 ALTs elevated 119 consistent elevated liver enzymes troponin was negative CRP elevated at 10.5 unclear etiology albumin elevated 2.6 consistent hypoalbuminemia, EKG demonstrates a sinus rhythm with left axis deviation no ST changes are noted, chest x-ray shows a opacity in the right lung field consistent with an atelectasis this has been present for over a month. CT scan shows bilateral atelectasis no pulmonary embolism Plan Called and discussed the case with hospitalist health promotion educator, he agreed to come and evaluate the patient in the emergency department for admission, will start Solu- Medrol and levofloxacin now Patient was in agreement with the plan all questions were answered, they were instructed to return to the emergency department or call for worsening symptoms. This note was dictated using [employer] voice recognition software please call with any questions.
--- NOTE | 2017-05-12 11:17 | CR ---
Chest 1V Frontal INDICATION: sob FINDINGS: Comparison 04/12/2017. Shallow inspiration. Stable cardiac enlargement. Stable subsegmental atelectasis right lung base. Stable minimal atelectasis left lung base. Chest otherwise negative.
[2017-05-12] MEDS ORDERED: Ondansetron 4 MG/2 ML SDV IVPUSH ONE (12:28)
[2017-05-12] MEDS ORDERED: Iopamidol 612 MG/ML 100 ML Bottle IV PRN (12:33)
[2017-05-12] MEDS ORDERED: Sodium Chloride 0.9% 75 ML IV ONE (12:33)
--- NOTE | 2017-05-12 13:08 | CT ---
Chest w Cont Total DLP 341 mGycm. INDICATION: hypoxic, RLL opacity COMPARISON: AP chest x-ray from earlier today. FINDINGS: No acute pulmonary artery embolism. No evidence for aortic dissection. Subsegmental atelec tasis right middle lobe. Mild atelectasis in the inferior lingula and left lower lobe. No focal cons olidation or pleural effusion. Postoperative changes involving the stomach and anterior abdominal wa ll. Mild compression of the superior endplate of T7, age indeterminant. Exam otherwise unremarkable. IMPRESSION: Bibasilar atelectasis. Incidental findings as above.
[2017-05-12] MEDS ORDERED: methylPREDNISolone Sodium Succinate 40 MG/1 ML SDV IVPUSH ONE (13:21)
[2017-05-12] MEDS ORDERED: Levofloxacin/Dextrose 5%-Water 500 MG in Premix Bag 1 BAG IV ONE (13:21)
--- NOTE | 2017-05-12 13:43 | EDM.PDOC ---
[id number]: WEAK AND BACK IS HURTING Time Seen by Provider: 05/12/17 10:25 Source of Information: Reports: Patient, EMS, Family, Old Records, RN Notes Reviewed History Limitations: Reports: Respiratory Distress - History of Present Illness INITIAL COMMENTS - FREE TEXT/NARRATIVE: General: Elderly female mild respiratory distress, alert and oriented x3 HEENT: head is atraumatic normocephalic, eyes pupils equal round reactive to light, sclera clear no conjunctivitis appreciated. Ears tympanic membranes clear and clark landmarks and light reflex are present bilaterally canals are clear. Nose no septal deviation, nares are clear, no blood present. Mouth mucosa is moist and pink no erythema or exudate noted in soft palate, tongue is midline uvula is midline, dentition is intact. Neck: Supple no thyromegaly no tracheal deviation. Nodes: Cervical nodes subclavicular nodes nontender no palpable lymphadenopathy noted. Lungs: Crackles and rhonchi throughout all lung woods bilaterally CV: Regular rate and rhythm S1 and S2 appreciated no murmurs rubs or gallops noted. Abdomen: Soft, nontender, no palpable masses or organomegaly appreciated, no distention no guarding bowel sounds are present, . Neuro: Cranial nerves II through XII grossly intact Skin: Warm and dry, intact Extremities: No lower extremity edema appreciated. Onset: Gradual Duration: Week(s): Associated Symptoms: Reports: Cough (productive, feelkng more short of air) Back Pain Score (Numeric/FACES): 8 - Related Data Allergies Allergy/AdvReac Type Severity Reaction Status Date / Time clindamycin Allergy Severe Difficulty Verified 06/18/17 11:05 Breathing ezetimibe [From Zetia] Allergy Severe Difficulty Verified 06/18/17 11:05 Breathing NSAIDS (Non-Steroidal Allergy Severe Airway Verified 06/18/17 11:05 Anti-Inflamma Tightness aspirin Allergy Intermediate Chest Pain Verified 06/18/17 11:05 ciprofloxacin HCl Allergy Rash Verified 06/18/17 11:05 [From Cipro] codeine Allergy Shortness Verified 06/18/17 11:05 of Breath pravastatin Allergy Other Verified 06/18/17 11:05 Sulfa (Sulfonamide Allergy Shortness Verified 06/18/17 11:05 Antibiotics) of Breath amoxicillin trihydrate AdvReac Stomach Verified 06/18/17 11:05 [From Augmentin] Upset atorvastatin calcium AdvReac Muscle Verified 06/18/17 11:05 [From Lipitor] Aches isosorbide mononitrate AdvReac Headache Verified 06/18/17 11:05 [From Imdur] morphine AdvReac Hallucinati Verified 06/18/17 11:05 ons potassium clavulanate AdvReac Stomach Verified 06/18/17 11:05 [From Augmentin] Upset pregabalin [From Lyrica] AdvReac Dizziness Verified 06/18/17 11:05 rosuvastatin calcium AdvReac Other Verified 06/18/17 11:05 [From Crestor] simvastatin [From Zocor] AdvReac Other Verified 06/18/17 11:05 Vlecdzm-Dmv-Dfo Reductase AdvReac Muscle Verified 06/18/17 11:05 Inhibitor Aches Home Meds: Home Meds PARoxetine HCl [Paroxetine HCl] 20 mg PO DAILY 08/16/13 [History] Lactobacillus Acidophilus [Probiotic] 1 each PO DAILY 03/05/14 [History] Fluticasone Propionate [Flonase] 2 sprays INH ASDIRECTED PRN 07/05/14 [History] Furosemide [Lasix] 40 mg PO DAILY 08/04/15 [History] Levothyroxine [Synthroid] 112 mcg PO DAILY 08/04/15 [History] Omeprazole Magnesium [Prilosec Otc] 40 mg PO DAILY 08/04/15 [History] Acetaminophen [Tylenol] 650 mg PO Q4H PRN 12/09/15 [History] Cetirizine [ZyrTEC] 10 mg PO DAILY 02/26/16 [History] Loperamide [Imodium AD] 2 mg PO TID PRN 02/28/16 [History] Ferrous Sulfate [Iron] 325 mg PO DAILY 11/18/16 [History] cycloSPORINE [Restasis] 1 drop EYEBOTH BID 11/18/16 [History] Metoprolol Tartrate [Lopressor] 50 mg PO BID 11/26/16 [History] Cholestyramine/Aspartame [Questran Light Powder] 4 gm PO DAILY 05/12/17 [History ] Cyclobenzaprine [Flexeril] 10 mg PO BEDTIME PRN 05/12/17 [History] predniSONE [Prednisone] 10 mg PO DAILY 05/12/17 [History] Albuterol [IJD: Albuterol] 2.5 mg NEB Q4H PRN #60 nebule 05/14/17 [Rx] Calcitonin (Ransom) [Miacalcin Nasal [place]] 1 spray MILLY DAILY #1 bottle [Rx] Calcium Carbonate/Vitamin D3 [Calcium 500 + Vit D 400] 1 each PO BID #60 tablet 05/14/17 [Rx] Warfarin [Coumadin] 2.5 mg PO DAILY #0 05/14/17 [Rx] oxyCODONE 5 mg PO Q4H PRN #30 tablet 05/14/17 [Rx] Past Medical History HEENT History: Reports: Allergic Rhinitis, Cataract, Impaired Vision, Sinusitis Cardiovascular History: Reports: Angina, Arrhythmia, Blood Clots/VTE/DVT, CAD, Heart Murmur, High Cholesterol, Hypertension, [place], SOB on Exertion Respiratory History: Reports: Bronchitis, Recurrent, COPD, PE, Pneumonia, Recurrent, Other (See Below) Other Respiratory History: oxygen dependent @ times. lung nodules Gastrointestinal History: Reports: Chronic Diarrhea, Colon Polyp, Gastritis, GERD, Hemorrhoids, Hepatitis, Hiatal Hernia, Irritable Bowel Syndrome, Other ( See Below) Other Gastrointestinal History: thickening c diff x2 Genitourinary History: Reports: Urinary Incontinence TABLE [employer] History: Reports: Dysfunctional Uterine Bleeding, Ectopic , Fibroids, , Spontaneous Musculoskeletal History: Reports: Arthritis, Back Pain, Chronic, Fibromyalgia, Neck Pain, Chronic, Osteoarthritis, Other (See Below) Other Musculoskeletal History: polymyalgia miamyalgia Neurological History: Reports: Vertigo, Other (See Below) Other Neuro History: bilateral optic neuropathy inner ear problems Psychiatric History: Reports: Anxiety, Depression Endocrine/Metabolic History: Reports: Hypothyroidism, Obesity/BMI 30+ Hematologic History: Reports: Anemia, Blood Transfusion(s), Iron Deficiency Oncologic (Cancer) History: Reports: Other (See Below) Other Oncologic History: skin cancer Dermatologic History: Reports: Other (See Below) Other Dermatologic History: squamous cell CA- arm ,forehead - Infectious Disease History Infectious Disease History: Reports: Chicken Pox, Measles, Mumps - Past Surgical History HEENT Surgical History: Reports: Cataract Surgery, Laser Surgery, Tonsillectomy Cardiovascular Surgical History: Reports: Percutaneous Transluminal Angioplasty GI Surgical History: Reports: Appendectomy, Cholecystectomy, Colonoscopy, EGD, [place] Fundoplication, Polypectomy, Small Bowel Female Surgical History: Reports: Breast Biopsy, D&C, Hysterectomy, Oophorectomy Musculoskeletal Surgical History: Reports: Knee Replacement Oncologic Surgical History: Reports: Biopsy of Breast Dermatological Surgical History: Reports: Skin Biopsy Social & Family History - Family History Family Medical History: Noncontributory Cardiac: Reports: Afib - Tobacco Use Smoking Status *Q: Never Smoker Years of Tobacco use: 20 Packs/Tins Daily: 0.5 Used Tobacco, but Quit: Yes Month Tobacco Last Used: 03/1985 Second Hand Smoke Exposure: No - Caffeine Use Caffeine Use: Reports: None - Alcohol Use Days Per Week of Alcohol Use: 0 Number of Drinks Per Day: 0 Total Drinks Per Week: 0 - Recreational Drug Use Recreational Drug Use: No ED ROS GENERAL - Review of Systems Review Of Systems: See Below Constitutional: Denies: Fever, Chills HEENT: Reports: No Symptoms Respiratory: Reports: Shortness of Breath, Cough Cardiovascular: Reports: No Symptoms : Reports: No Symptoms Musculoskeletal: Reports: Back Pain Skin: Reports: No Symptoms Neurological: Reports: No Symptoms ED EXAM, SEPSIS - Physical Exam Exam: See Below Exam Limited By: No Limitations General Appearance: Alert Ears: Normal External Exam Nose: Normal Inspection Throat/Mouth: Normal Inspection, Normal Oropharynx Head: Atraumatic, Normocephalic Neck: Normal Inspection Respiratory/Chest: Lungs Clear, Normal Breath Sounds, Other (tender over thoracic spine) Cardiovascular: Normal Peripheral Pulses, Regular Rate, Rhythm GI/Abdominal Exam: Normal Bowel Sounds, Soft, Non-Tender Back: Vertebral Tenderness (over thoracic spine) Neurological: Alert, Oriented Psychiatric: Normal Affect Skin: Warm, Dry, Intact Course - Vital Signs Text/Narrative:: 86 year old female presents to ED with increasing shortness of breath associated with productive cough, weakness. She was noted to be hypoxemic and hypercapneic. Because of her symptoms, she will be admitted to IP for ongoing cares Last Recorded V/S: Last Vital Signs Temp 36.6 C 05/15/17 07:30 Pulse 78 05/15/17 08:19 Resp 19 05/15/17 07:30 BP 157/82 H 05/15/17 08:19 Pulse Ox 92 L 05/15/17 07:30 - Orders/Labs/Meds Labs: Laboratory Tests 05/12/17 05/12/17 05/12/17 Range/Units 10:25 10:35 10:35 WBC (4.5-11.0) K/uL RBC (3.30-5.50) M/uL Hgb (12.0-15.0) g/dL Hct (36.0-48.0) % MCV (80-98) fL MCH (27-31) pg MCHC (32-36) % Plt Count (150-400) K/uL Neut % (Auto) (36-66) % Lymph % (Auto) (24-44) % Payne % (Auto) (2-6) % Eos % (Auto) (2-4) % Baso % (Auto) (0-1) % PT (9.5-12.0) sec INR (0.80-1.20) APTT (27.0-36.0) sec Puncture Site Lt brachial ABG pH 7.423 (7.350-7.450) ABG pCO2 52.1 H (35.0-42.0) mmHg ABG pO2 86.8 (75.0-100.0) mmHg ABG HCO3 33.4 H (22.0-26.0) mmol/L ABG Total CO2 29.4 H (21.0-25.0) mmol/L ABG O2 Saturation 96.7 (95.0-98.0) % ABG O2 Content 18.1 (15.0-23.0) %vol ABG Base Excess 7.8 mm/L ABG Hemoglobin 13.6 (12.0-16.0) g/dL ABG Oxyhemoglobin 94.3 % ABG Carboxyhemoglobin 1.7 H (0.0-1.6) % ABG Methemoglobin 0.8 % Jordan Test None O2 Delivery Device Nasal cannula Oxygen Flow Rate 2 L Sodium (140-148) mmol/L Potassium (3.6-5.2) mmol/L Chloride (100-108) mmol/L Carbon Dioxide (21-32) mmol/L Anion Gap (5.0-14.0) mmol/L BUN (7-18) mg/dL Creatinine (0.6-1.0) mg/dL Est Cr Clr Drug Dosing mL/min Estimated GFR (MDRD) (>60) Glucose (74-106) mg/dL Lactic Acid 1.3 (0.4-2.0) mmol/L Calcium (8.5-10.1) mg/dL Total Bilirubin (0.2-1.0) mg/dL AST (15-37) U/L ALT (12-78) U/L Alkaline Phosphatase (46-116) U/L Ammonia (11-32) mmol/L Troponin I (0.000-0.056) ng/mL C-Reactive Protein 10.50 H (0.0-0.3) mg/dL Total Protein (6.4-8.2) g/dL Albumin (3.4-5.0) g/dL Globulin (2.3-3.5) g/dL Albumin/Globulin Ratio (1.2-2.2) 05/12/17 05/12/17 05/12/17 Range/Units 10:35 10:35 10:39 WBC 14.2 H (4.5-11.0) K/uL RBC 4.64 (3.30-5.50) M/uL Hgb 13.6 (12.0-15.0) g/dL Hct 44.5 (36.0-48.0) % MCV 96 (80-98) fL MCH 29 (27-31) pg MCHC 31 L (32-36) % Plt Count 245 (150-400) K/uL Neut % (Auto) 78 H (36-66) % Lymph % (Auto) 11 L (24-44) % Payne % (Auto) 9 H (2-6) % Eos % (Auto) 1 L (2-4) % Baso % (Auto) 0 (0-1) % PT 17.3 H (9.5-12.0) sec INR 1.59 H (0.80-1.20) APTT 32.8 (27.0-36.0) sec Puncture Site ABG pH (7.350-7.450) ABG pCO2 (35.0-42.0) mmHg ABG pO2 (75.0-100.0) mmHg ABG HCO3 (22.0-26.0) mmol/L ABG Total CO2 (21.0-25.0) mmol/L ABG O2 Saturation (95.0-98.0) % ABG O2 Content (15.0-23.0) %vol ABG Base Excess mm/L ABG Hemoglobin (12.0-16.0) g/dL ABG Oxyhemoglobin % ABG Carboxyhemoglobin (0.0-1.6) % ABG Methemoglobin % Jordan Test O2 Delivery Device Oxygen Flow Rate L Sodium (140-148) mmol/L Potassium (3.6-5.2) mmol/L Chloride (100-108) mmol/L Carbon Dioxide (21-32) mmol/L Anion Gap (5.0-14.0) mmol/L BUN (7-18) mg/dL Creatinine (0.6-1.0) mg/dL Est Cr Clr Drug Dosing mL/min Estimated GFR (MDRD) (>60) Glucose (74-106) mg/dL Lactic Acid (0.4-2.0) mmol/L Calcium (8.5-10.1) mg/dL Total Bilirubin (0.2-1.0) mg/dL AST (15-37) U/L ALT (12-78) U/L Alkaline Phosphatase (46-116) U/L Ammonia (11-32) mmol/L Troponin I (0.000-0.056) ng/mL C-Reactive Protein (0.0-0.3) mg/dL Total Protein (6.4-8.2) g/dL Albumin (3.4-5.0) g/dL Globulin (2.3-3.5) g/dL Albumin/Globulin Ratio (1.2-2.2) 05/12/17 05/12/17 Range/Units 10:39 15:00 WBC (4.5-11.0) K/uL RBC (3.30-5.50) M/uL Hgb (12.0-15.0) g/dL Hct (36.0-48.0) % MCV (80-98) fL MCH (27-31) pg MCHC (32-36) % Plt Count (150-400) K/uL Neut % (Auto) (36-66) % Lymph % (Auto) (24-44) % Payne % (Auto) (2-6) % Eos % (Auto) (2-4) % Baso % (Auto) (0-1) % PT (9.5-12.0) sec INR (0.80-1.20) APTT (27.0-36.0) sec Puncture Site ABG pH (7.350-7.450) ABG pCO2 (35.0-42.0) mmHg ABG pO2 (75.0-100.0) mmHg ABG HCO3 (22.0-26.0) mmol/L ABG Total CO2 (21.0-25.0) mmol/L ABG O2 Saturation (95.0-98.0) % ABG O2 Content (15.0-23.0) %vol ABG Base Excess mm/L ABG Hemoglobin (12.0-16.0) g/dL ABG Oxyhemoglobin % ABG Carboxyhemoglobin (0.0-1.6) % ABG Methemoglobin % Jordan Test O2 Delivery Device Oxygen Flow Rate L Sodium 138 L (140-148) mmol/L Potassium 3.7 (3.6-5.2) mmol/L Chloride 101 (100-108) mmol/L Carbon Dioxide 35 H (21-32) mmol/L Anion Gap 5.7 (5.0-14.0) mmol/L BUN 16 (7-18) mg/dL Creatinine 1.0 (0.6-1.0) mg/dL Est Cr Clr Drug Dosing 33.58 mL/min Estimated GFR (MDRD) 52 L (>60) Glucose 100 (74-106) mg/dL Lactic Acid (0.4-2.0) mmol/L Calcium 8.7 (8.5-10.1) mg/dL Total Bilirubin 0.6 (0.2-1.0) mg/dL AST 125 H D (15-37) U/L ALT 119 H (12-78) U/L Alkaline Phosphatase 170 H D (46-116) U/L Ammonia 8 L (11-32) mmol/L Troponin I < 0.017 (0.000-0.056) ng/mL C-Reactive Protein (0.0-0.3) mg/dL Total Protein 6.6 (6.4-8.2) g/dL Albumin 2.6 L (3.4-5.0) g/dL Globulin 4.0 H (2.3-3.5) g/dL Albumin/Globulin Ratio 0.7 L (1.2-2.2) Meds: Medications Discontinued Medications Generic Name Dose Route Start Last Admin Trade Name Freq PRN Reason Stop Dose Admin Acetaminophen 650 mg 05/12/17 16:40 Tylenol PO Q4H PRN Pain (Mild 1-3)/fever Albuterol 2.5 mg 05/12/17 16:40 Proventil Neb Soln NEB Q4H PRN Shortness Of Breath/wheezing Albuterol/Ipratropium 3 ml 05/12/17 21:00 05/14/17 14:21 Duoneb 3.0-0.5 Mg/3 Ml NEB 3 ml QIDRT YASH Administration Arformoterol Tartrate 15 mcg 05/12/17 16:40 05/13/17 14:56 Brovana INH 15 mcg BIDRT PRN Administration Wheezing Arformoterol Tartrate 15 mcg 05/14/17 21:00 05/15/17 07:21 Brovana INH 15 mcg BIDRT YASH Administration Benzonatate 100 mg 05/12/17 21:20 05/15/17 02:44 Tessalon Perles PO 100 mg TID PRN Administration Cough Calcitonin Ransom 0 ml 05/13/17 09:00 05/15/17 08:25 Miacalcin Nasal [place] MILLY 1 spray DAILY YASH Administration Cyclosporine 0 each 05/12/17 21:00 05/15/17 08:24 Restasis EYEBOTH 1 drop BID YASH Administration Docusate Sodium 100 mg 05/12/17 16:40 Colace PO BID PRN Constipation Ferrous Sulfate 325 mg 05/13/17 08:00 05/15/17 07:48 Ferrous Sulfate PO 325 mg DAILY@0800 YASH Administration Fluticasone Propionate 0 gm 05/13/17 09:00 05/15/17 08:24 Flonase NASBOTH 2 spray DAILY YASH Administration Furosemide 40 mg 05/13/17 09:00 05/15/17 08:22 Lasix PO 40 mg DAILY YASH Administration Gabapentin 300 mg 05/12/17 21:00 05/15/17 08:18 Neurontin PO 300 mg BID YASH Administration Guaifenesin/Dextromethorphan 10 ml 05/12/17 21:21 05/13/17 22:47 Robitussin Dm PO 10 ml Q4H PRN Administration Cough Lactated Ringer's 1,000 mls @ 500 mls/hr 05/12/17 10:25 05/12/17 10:48 Ringers, Lactated IV 05/12/17 12:24 500 mls/hr ASDIRECTED ONE Administration Sodium Chloride 75 mls @ 3 mls/sec 05/12/17 12:33 05/12/17 12:45 Normal Saline IV 05/12/17 12:34 3 mls/sec ONETIME ONE Administration Levofloxacin/Dextrose 500 mg/ 100 mls @ 100 mls/hr 05/12/17 13:21 05/12/17 14 :05 Premix IV 05/12/17 14:20 100 mls/hr ONETIME ONE Administration Levofloxacin/Dextrose 500 mg/ 100 mls @ 100 mls/hr 05/13/17 14:00 05/14/17 15 :09 Premix IV 05/14/17 15:30 100 mls/hr Q24H YASH Administration Sodium Chloride 1,000 mls @ 75 mls/hr 05/12/17 16:40 05/13/17 07:11 Normal Saline IV 75 mls/hr ASDIRECTED YASH Administration Levofloxacin/Dextrose 250 mg/ 50 mls @ 50 mls/hr 05/15/17 14:00 Premix IV Q24H YASH Iopamidol 100 ml 05/12/17 12:33 05/12/17 12:45 Isovue-300 (61%) IV 05/12/17 12:34 100 ml . DIRECTED PRN Administration RADIOLOGY EXAM Ketorolac Tromethamine 30 mg 05/12/17 10:42 05/12/17 10:52 Toradol IVPUSH 05/12/17 10:43 30 mg ONETIME ONE Administration Lactobacillus Rhamnosus 1 cap 05/13/17 09:00 05/15/17 08:22 Culturelle PO 1 cap DAILY YASH Administration Levothyroxine Sodium 112 mcg 05/13/17 07:30 05/15/17 07:42 Levothyroxine PO 112 mcg DAILY@0730 YASH Administration Magnesium Hydroxide 30 ml 05/12/17 16:40 Milk Of Magnesia PO Q12H PRN Constipation Methylprednisolone Sodium Succinate 40 mg 05/12/17 13:21 05/12/17 14:01 Solu-Medrol IVPUSH 05/12/17 13:22 40 mg ONETIME ONE Administration Methylprednisolone Sodium Succinate 40 mg 05/12/17 22:00 05/14/17 15:10 Solu-Medrol IVPUSH 40 mg Q8H YASH Administration Metoprolol Tartrate 50 mg 05/12/17 21:00 05/15/17 08:19 Lopressor PO 50 mg BID YASH Administration Nitroglycerin 0.4 mg 05/12/17 16:40 Nitrostat SL ASDIRECTED YASH Ondansetron HCl 4 mg 05/12/17 12:28 05/12/17 12:32 Zofran IVPUSH 05/12/17 12:29 4 mg ONETIME ONE Administration Ondansetron HCl 4 mg 05/12/17 16:40 Zofran IV Q4H PRN Nausea/Vomiting Oxycodone HCl 5 mg 05/12/17 16:40 05/15/17 08:16 Oxycodone PO 5 mg Q4H PRN Administration Pain (moderate 4-6) Pantoprazole Sodium 40 mg 05/13/17 07:30 05/15/17 07:44 Protonix PO 40 mg DAILY@0730 YASH Administration Paroxetine HCl 20 mg 05/13/17 09:00 05/15/17 08:18 Paxil PO 20 mg DAILY YASH Administration Polyethylene Glycol 17 gm 05/12/17 16:40 Miralax PO DAILY PRN Constipation Prednisone 40 mg 05/15/17 09:00 05/15/17 08:23 Prednisone PO 40 mg DAILY YASH Administration Prochlorperazine Edisylate 5 mg 05/12/17 14:11 05/12/17 14:18 Compazine IVPUSH 05/12/17 14:12 5 mg ONETIME ONE Administration Sodium Chloride 10 ml 05/12/17 10:25 05/12/17 14:01 Saline Flush FLUSH 10 ml ASDIRECTED PRN Administration Keep Vein Open Sodium Chloride 10 ml 05/12/17 12:33 05/12/17 12:45 Saline Flush FLUSH 10 ml ONETIME PRN Administration PER RADIOLOGY PROTOCOL Sodium Chloride 10 ml 05/12/17 16:40 Saline Flush FLUSH ASDIRECTED PRN Keep Vein Open Trazodone HCl 25 mg 05/12/17 16:40 Trazodone PO BEDTIME PRN Insomnia Warfarin Sodium 5 mg 05/12/17 17:30 05/12/17 17:38 Coumadin PO 05/12/17 17:31 5 mg ONETIME ONE Administration Warfarin Sodium 2.5 mg 05/14/17 16:00 05/14/17 16:41 Coumadin PO 2.5 mg DAILY@1300 YASH Administration Departure - Departure Time of Disposition: 15:45 Disposition: Admitted As Inpatient 64 Condition: Fair Clinical Impression: Bronchitis Compression fx, thoracic spine Qualifiers: Encounter type: initial encounter Fracture type: closed Qualified Code(s): S22.000A - Wedge compression fracture of unspecified thoracic vertebra, initial encounter for closed fracture - Discharge Information
[2017-05-12] MEDS ORDERED: Prochlorperazine 10 MG/2 ML SDV IVPUSH ONE (14:11)
--- NOTE | 2017-05-12 16:33 | PCM.HP ---
H&P History of Present Illness - General Date of Service: 05/12/17 Admit Problem/Dx: Admission Diagnosis/Problem Admission Diagnosis/Problem COPD, Moderate chronic obstructive pulmonary disease Source of Information: Patient, Family, Old Records, Provider, RN Notes Reviewed History Limitations: Reports: No Limitations - History of Present Illness Initial Comments - Free Text/Narative: Ms. Khan is an 86-year-old woman who is admitted through the emergency department with hypoxia secondary to COPD exacerbation and bronchitis. To this point has not had a formal diagnosis of COPD she has used inhalers on a regular basis because of symptoms of shortness of breath. Approximately 1 month ago was treated for probable pneumonia, since then has had some ongoing difficulty with shortness of breath. This has been exacerbated by a T7 spinal compression fracture that also occurred approximately 1 month ago. Because of shortness of breath and pain with deep breathing she has had to sleep in her recliner, or the course of the past several weeks has become progressively more weak. She's had a cough productive of green sputum and reports chills and sweats but has not had a documented fever. White blood cell count was moderately elevated on evaluation in the emergency department. Chest x-ray showed no obvious infiltrate. CT scan of the chest with PE protocol was obtained because of the hypoxia and her past history of deep vein thrombosis and pulmonary emboli. CT scan of the chest showed areas of atelectasis in each lung but showed no evidence of infiltrate, congestive heart failure, or pulmonary embolism. Back Pain Score (Numeric/FACES): 8 - Related Data Allergies/Adverse Reactions: Allergies Allergy/AdvReac Type Severity Reaction Status Date / Time clindamycin Allergy Severe Difficulty Verified 05/12/17 10:30 Breathing ezetimibe [From Zetia] Allergy Severe Difficulty Verified 05/12/17 10:30 Breathing NSAIDS (Non-Steroidal Allergy Severe Airway Verified 05/12/17 10:30 Anti-Inflamma Tightness aspirin Allergy Intermediate Chest Pain Verified 05/12/17 10:30 ciprofloxacin HCl Allergy Rash Verified 05/12/17 10:30 [From Cipro] codeine Allergy Shortness Verified 05/12/17 10:30 of Breath pravastatin Allergy Other Verified 05/12/17 10:30 Sulfa (Sulfonamide Allergy Shortness Verified 05/12/17 10:30 Antibiotics) of Breath amoxicillin trihydrate AdvReac Stomach Verified 05/12/17 10:30 [From Augmentin] Upset atorvastatin calcium AdvReac Muscle Verified 05/12/17 10:30 [From Lipitor] Aches isosorbide mononitrate AdvReac Headache Verified 05/12/17 10:30 [From Imdur] morphine AdvReac Hallucinati Verified 05/12/17 10:30 ons potassium clavulanate AdvReac Stomach Verified 05/12/17 10:30 [From Augmentin] Upset pregabalin [From Lyrica] AdvReac Dizziness Verified 05/12/17 10:30 rosuvastatin calcium AdvReac Other Verified 05/12/17 10:30 [From Crestor] simvastatin [From Zocor] AdvReac Other Verified 05/12/17 10:30 Wegwger-Neu-Ivd Reductase AdvReac Muscle Verified 05/12/17 10:30 Inhibitor Aches Home Medications: Home Meds PARoxetine HCl [Paroxetine HCl] 20 mg PO DAILY 08/16/13 [History] Lactobacillus Acidophilus [Probiotic] 1 each PO DAILY 03/05/14 [History] Fluticasone Propionate [Flonase] 2 sprays INH ASDIRECTED PRN 07/05/14 [History] Nitroglycerin [Nitrostat] 0.4 mg SL ASDIRECTED 07/05/14 [History] Gabapentin 300 mg PO BID 07/24/14 [History] Arformoterol [Brovana] 1 puff INH BID PRN 08/04/15 [History] EPINEPHrine [Epipen] 0.3 mg IM ONETIME 08/04/15 [History] Furosemide [Lasix] 40 mg PO DAILY 08/04/15 [History] Levothyroxine [Synthroid] 112 mcg PO DAILY 08/04/15 [History] Omeprazole Magnesium [Prilosec Otc] 40 mg PO DAILY 08/04/15 [History] traZODone 25 mg PO BEDTIME PRN 08/04/15 [History] Acetaminophen [Tylenol] 650 mg PO Q4H PRN 12/09/15 [History] Meclizine [Antivert] 25 mg PO TID PRN 12/09/15 [History] Cetirizine [ZyrTEC] 10 mg PO DAILY 02/26/16 [History] Loperamide [Imodium AD] 2 mg PO TID PRN 02/28/16 [History] Warfarin [Coumadin] 2.5 - 5 mg PO ASDIRECTED 03/17/16 [History] Ferrous Sulfate [Iron] 325 mg PO DAILY 11/18/16 [History] cycloSPORINE [Restasis] 1 drop EYEBOTH BID 11/18/16 [History] Metoprolol Tartrate [Lopressor] 50 mg PO BID 11/26/16 [History] Cholestyramine/Aspartame [Questran Light Powder] 4 gm PO DAILY 05/12/17 [History ] Cyclobenzaprine [Flexeril] 10 mg PO BEDTIME PRN 05/12/17 [History] predniSONE [Prednisone] 10 mg PO DAILY 05/12/17 [History] traMADol [Ultram] 50 - 100 mg PO Q8H PRN 05/12/17 [History] Past Medical History HEENT History: Reports: Allergic Rhinitis, Cataract, Impaired Vision, Sinusitis Cardiovascular History: Reports: Angina, Arrhythmia, Blood Clots/VTE/DVT, CAD, Heart Murmur, High Cholesterol, Hypertension, SC, SOB on Exertion Respiratory History: Reports: Bronchitis, Recurrent, COPD, PE, Pneumonia, Recurrent, Other (See Below) Other Respiratory History: oxygen dependent @ times. lung nodules Gastrointestinal History: Reports: Chronic Diarrhea, Colon Polyp, Gastritis, GERD, Hemorrhoids, Hepatitis, Hiatal Hernia, Irritable Bowel Syndrome, Other ( See Below) Other Gastrointestinal History: thickening c diff x2 Genitourinary History: Reports: Urinary Incontinence BLOCK SEALER History: Reports: Dysfunctional Uterine Bleeding, Ectopic , Fibroids, , Spontaneous Musculoskeletal History: Reports: Arthritis, Back Pain, Chronic, Fibromyalgia, Neck Pain, Chronic, Osteoarthritis, Other (See Below) Other Musculoskeletal History: polymyalgia miamyalgia Neurological History: Reports: Vertigo, Other (See Below) Other Neuro History: bilateral optic neuropathy inner ear problems Psychiatric History: Reports: Anxiety, Depression Endocrine/Metabolic History: Reports: Hypothyroidism, Obesity/BMI 30+ Hematologic History: Reports: Anemia, Blood Transfusion(s), Iron Deficiency Oncologic (Cancer) History: Reports: Other (See Below) Other Oncologic History: skin cancer Dermatologic History: Reports: Other (See Below) Other Dermatologic History: squamous cell CA- arm ,forehead - Infectious Disease History Infectious Disease History: Reports: Chicken Pox, Measles, Mumps - Past Surgical History HEENT Surgical History: Reports: Cataract Surgery, Laser Surgery, Tonsillectomy Cardiovascular Surgical History: Reports: Percutaneous Transluminal Angioplasty GI Surgical History: Reports: Appendectomy, Cholecystectomy, Colonoscopy, EGD, [place] Fundoplication, Polypectomy, Small Bowel Female Surgical History: Reports: Breast Biopsy, D&C, Hysterectomy, Oophorectomy Musculoskeletal Surgical History: Reports: Knee Replacement Oncologic Surgical History: Reports: Biopsy of Breast Dermatological Surgical History: Reports: Skin Biopsy Social & Family History - Family History Family Medical History: Noncontributory Cardiac: Reports: Afib - Tobacco Use Smoking Status *Q: Never Smoker Years of Tobacco use: 20 Packs/Tins Daily: 0.5 Used Tobacco, but Quit: Yes Month Tobacco Last Used: 03/1985 Second Hand Smoke Exposure: No - Caffeine Use Caffeine Use: Reports: None - Alcohol Use Days Per Week of Alcohol Use: 0 Number of Drinks Per Day: 0 Total Drinks Per Week: 0 - Recreational Drug Use Recreational Drug Use: No H&P Review of Systems - Review of Systems: Review Of Systems: See Below General: Reports: Chills, Weakness, Fatigue, Diaphoresis, Decreased Appetite HEENT: Reports: No Symptoms Pulmonary: Reports: Shortness of Breath, Wheezing, Cough, Sputum. Denies: Pleuritic Chest Pain, Hemoptysis Cardiovascular: Reports: Dyspnea on Exertion. Denies: Chest Pain, Palpitations , Orthopnea, PND, Edema, Lightheadedness, Syncope Gastrointestinal: Reports: No Symptoms Genitourinary: Reports: No Symptoms Musculoskeletal: Reports: Back Pain, Joint Pain. Denies: Neck Pain Skin: Reports: No Symptoms Psychiatric: Reports: No Symptoms Neurological: Reports: No Symptoms Hematologic/Lymphatic: Reports: No Symptoms Immunologic: Reports: No Symptoms Exam - Exam Exam: See Below - Vital Signs Vital Signs: Last Vital Signs Temp 96.3 F 05/12/17 11:59 Pulse 77 05/12/17 15:32 Resp 15 05/12/17 15:32 BP 123/57 L 05/12/17 15:32 Pulse Ox 89 L 05/12/17 15:32 Weight: 200 lb - Exam Quality Assessment: Supplemental Oxygen, DVT Prophylaxis General: Alert, Oriented, Cooperative, Mild Distress HEENT: Conjunctiva Clear, EOMI, Hearing Intact, Mucosa Moist & [place], Normal Nasal Septum, Posterior Pharynx Clear, Pupils Equal, Pupils Reactive Neck: Supple, Trachea Midline, +2 Carotid Pulse wo Bruit Lungs: Decreased Breath Sounds, Rales, Rhonchi, Wheezing. No: Crackles, Rub, Stridor Cardiovascular: Regular Rate, Regular Rhythm, Normal S1, Normal S2. No: Systolic Murmur, Diastolic Murmur Abdomen: Normal Bowel Sounds, Soft Back Exam: Vertebral Tenderness Extremities: Other (Osteoarthritis of both knees) Skin: Warm, Dry, Intact Neurological: Cranial Nerves Intact, Strength Equal Bilateral, Normal Speech, Normal Tone, Sensation Intact. No: Focal Deficit Neuro Extensive - Mental Status: Alert, Oriented x3, Normal Mood/Affect, Normal Cognition, Memory Intact - Patient Data Lab Results Last 24 hrs: Laboratory Results - last 24 hr 05/12/17 05/12/17 05/12/17 Range/Units 10:25 10:35 10:35 WBC (4.5-11.0) K/uL RBC (3.30-5.50) M/uL Hgb (12.0-15.0) g/dL Hct (36.0-48.0) % MCV (80-98) fL MCH (27-31) pg MCHC (32-36) % Plt Count (150-400) K/uL Neut % (Auto) (36-66) % Lymph % (Auto) (24-44) % Tyrrell % (Auto) (2-6) % Eos % (Auto) (2-4) % Baso % (Auto) (0-1) % PT (9.5-12.0) sec INR (0.80-1.20) APTT (27.0-36.0) sec Puncture Site Lt brachial ABG pH 7.423 (7.350-7.450) ABG pCO2 52.1 H (35.0-42.0) mmHg ABG pO2 86.8 (75.0-100.0) mmHg ABG HCO3 33.4 H (22.0-26.0) mmol/L ABG Total CO2 29.4 H (21.0-25.0) mmol/L ABG O2 Saturation 96.7 (95.0-98.0) % ABG O2 Content 18.1 (15.0-23.0) %vol ABG Base Excess 7.8 mm/L ABG Hemoglobin 13.6 (12.0-16.0) g/dL ABG Oxyhemoglobin 94.3 % ABG Carboxyhemoglobin 1.7 H (0.0-1.6) % ABG Methemoglobin 0.8 % Jordan Test None O2 Delivery Device Nasal cannula Oxygen Flow Rate 2 L Sodium (140-148) mmol/L Potassium (3.6-5.2) mmol/L Chloride (100-108) mmol/L Carbon Dioxide (21-32) mmol/L Anion Gap (5.0-14.0) mmol/L BUN (7-18) mg/dL Creatinine (0.6-1.0) mg/dL Est Cr Clr Drug Dosing mL/min Estimated GFR (MDRD) (>60) Glucose (74-106) mg/dL Lactic Acid 1.3 (0.4-2.0) mmol/L Calcium (8.5-10.1) mg/dL Total Bilirubin (0.2-1.0) mg/dL AST (15-37) U/L ALT (12-78) U/L Alkaline Phosphatase (46-116) U/L Ammonia (11-32) mmol/L Troponin I (0.000-0.056) ng/mL C-Reactive Protein 10.50 H (0.0-0.3) mg/dL Total Protein (6.4-8.2) g/dL Albumin (3.4-5.0) g/dL Globulin (2.3-3.5) g/dL Albumin/Globulin Ratio (1.2-2.2) 05/12/17 05/12/17 05/12/17 Range/Units 10:35 10:35 10:39 WBC 14.2 H (4.5-11.0) K/uL RBC 4.64 (3.30-5.50) M/uL Hgb 13.6 (12.0-15.0) g/dL Hct 44.5 (36.0-48.0) % MCV 96 (80-98) fL MCH 29 (27-31) pg MCHC 31 L (32-36) % Plt Count 245 (150-400) K/uL Neut % (Auto) 78 H (36-66) % Lymph % (Auto) 11 L (24-44) % Tyrrell % (Auto) 9 H (2-6) % Eos % (Auto) 1 L (2-4) % Baso % (Auto) 0 (0-1) % PT 17.3 H (9.5-12.0) sec INR 1.59 H (0.80-1.20) APTT 32.8 (27.0-36.0) sec Puncture Site ABG pH (7.350-7.450) ABG pCO2 (35.0-42.0) mmHg ABG pO2 (75.0-100.0) mmHg ABG HCO3 (22.0-26.0) mmol/L ABG Total CO2 (21.0-25.0) mmol/L ABG O2 Saturation (95.0-98.0) % ABG O2 Content (15.0-23.0) %vol ABG Base Excess mm/L ABG Hemoglobin (12.0-16.0) g/dL ABG Oxyhemoglobin % ABG Carboxyhemoglobin (0.0-1.6) % ABG Methemoglobin % Jordan Test O2 Delivery Device Oxygen Flow Rate L Sodium (140-148) mmol/L Potassium (3.6-5.2) mmol/L Chloride (100-108) mmol/L Carbon Dioxide (21-32) mmol/L Anion Gap (5.0-14.0) mmol/L BUN (7-18) mg/dL Creatinine (0.6-1.0) mg/dL Est Cr Clr Drug Dosing mL/min Estimated GFR (MDRD) (>60) Glucose (74-106) mg/dL Lactic Acid (0.4-2.0) mmol/L Calcium (8.5-10.1) mg/dL Total Bilirubin (0.2-1.0) mg/dL AST (15-37) U/L ALT (12-78) U/L Alkaline Phosphatase (46-116) U/L Ammonia (11-32) mmol/L Troponin I (0.000-0.056) ng/mL C-Reactive Protein (0.0-0.3) mg/dL Total Protein (6.4-8.2) g/dL Albumin (3.4-5.0) g/dL Globulin (2.3-3.5) g/dL Albumin/Globulin Ratio (1.2-2.2) 06/14/17 06/14/17 Range/Units 10:39 15:00 WBC (4.5-11.0) K/uL RBC (3.30-5.50) M/uL Hgb (12.0-15.0) g/dL Hct (36.0-48.0) % MCV (80-98) fL MCH (27-31) pg MCHC (32-36) % Plt Count (150-400) K/uL Neut % (Auto) (36-66) % Lymph % (Auto) (24-44) % Tyrrell % (Auto) (2-6) % Eos % (Auto) (2-4) % Baso % (Auto) (0-1) % PT (9.5-12.0) sec INR (0.80-1.20) APTT (27.0-36.0) sec Puncture Site ABG pH (7.350-7.450) ABG pCO2 (35.0-42.0) mmHg ABG pO2 (75.0-100.0) mmHg ABG HCO3 (22.0-26.0) mmol/L ABG Total CO2 (21.0-25.0) mmol/L ABG O2 Saturation (95.0-98.0) % ABG O2 Content (15.0-23.0) %vol ABG Base Excess mm/L ABG Hemoglobin (12.0-16.0) g/dL ABG Oxyhemoglobin % ABG Carboxyhemoglobin (0.0-1.6) % ABG Methemoglobin % Jordan Test O2 Delivery Device Oxygen Flow Rate L Sodium 138 L (140-148) mmol/L Potassium 3.7 (3.6-5.2) mmol/L Chloride 101 (100-108) mmol/L Carbon Dioxide 35 H (21-32) mmol/L Anion Gap 5.7 (5.0-14.0) mmol/L BUN 16 (7-18) mg/dL Creatinine 1.0 (0.6-1.0) mg/dL Est Cr Clr Drug Dosing 33.58 mL/min Estimated GFR (MDRD) 52 L (>60) Glucose 100 (74-106) mg/dL Lactic Acid (0.4-2.0) mmol/L Calcium 8.7 (8.5-10.1) mg/dL Total Bilirubin 0.6 (0.2-1.0) mg/dL AST 125 H D (15-37) U/L ALT 119 H (12-78) U/L Alkaline Phosphatase 170 H D (46-116) U/L Ammonia 8 L (11-32) mmol/L Troponin I < 0.017 (0.000-0.056) ng/mL C-Reactive Protein (0.0-0.3) mg/dL Total Protein 6.6 (6.4-8.2) g/dL Albumin 2.6 L (3.4-5.0) g/dL Globulin 4.0 H (2.3-3.5) g/dL Albumin/Globulin Ratio 0.7 L (1.2-2.2) Result Diagrams: 05/12/17 10:39 05/12/17 10:39 *Q Meaningful Use (ADM) - VTE *Q VTE Criteria *Q: VTE Pharmacological Contraindications *Q: High INR Value - VTE Risk Assess *Q Each Risk Factor Represents 1 Point: Varicose Veins, Obesity (BMI greater than 30) Total Score 1 Point Risk Factors: 2 Each Risk Factor Represents 2 Points: None Total Score 2 Point Risk Factors: 0 Each Risk Factor Represents 3 Points: Age 75 Years or Greater, History Superficial Venous Thrombosis, DVT or PE Total Score 3 Point Risk Factors: 6 Each Risk Factor Represents 5 Points: None Total Score 5 Point Risk Factors: 0 Venous Thromboembolism Risk Factor Score *Q: 8 - Stroke *Q Stroke Criteria *Q: - AMI *Q AMI Criteria *Q: Problem List Initiated/Reviewed/Updated: Yes Orders Last 24hrs: Active Orders 24 hr Category Date Time Status Patient Status Manage Transfer [TRANSFER] Routine ADT 05/12/17 15:59 Ordered Cardiac Monitoring [RC] .As Directed Care 05/12/17 15:59 Ordered EKG Documentation Completion [RC] ASDIRECTED Care 05/12/17 10:27 Active Peripheral IV Care [RC] . DIRECTED Care 05/12/17 10:26 Active CULTURE BLOOD [BC] Stat Lab 05/12/17 10:35 Received CULTURE BLOOD [BC] Urgent Lab 05/12/17 10:45 Received UA W/MICROSCOPIC [URIN] Stat Lab 05/12/17 10:27 Uncollected Sodium Chloride 0.9% [Saline Flush] Med 05/12/17 10:25 Active 10 ml FLUSH ASDIRECTED PRN Sodium Chloride 0.9% [Saline Flush] Med 05/12/17 12:33 Active 10 ml FLUSH ONETIME PRN Blood Culture x2 Reflex Set [OM.PC] Urgent Oth 05/12/17 10:27 Ordered Peripheral IV Insertion Adult [OM.PC] Urgent Oth 05/12/17 10:25 Ordered Resuscitation Status Routine Resus Stat 05/12/17 16:11 Ordered EKG 12 Lead [EK] Urgent Ther 05/12/17 10:25 Ordered Medication Orders Sodium Chloride (Saline Flush) 10 ml FLUSH ASDIRECTED PRN PRN Reason: Keep Vein Open Last Admin: 05/12/17 14:01 Dose: 10 ml Sodium Chloride (Saline Flush) 10 ml FLUSH ONETIME PRN PRN Reason: PER RADIOLOGY PROTOCOL Last Admin: 05/12/17 12:45 Dose: 10 ml Assessment/Plan Comment:: ASSESSMENT AND PLAN COPD EXACERBATION SECONDARY TO BRONCHITIS-she has no formal diagnosis of COPD but does have a long-standing history of secondhand smoke exposure and previous smoking history. Over the past month has become more short of breath and now has developed cough productive of colored sputum. There is modest elevation in white blood cell count, no significant infiltrate identified on CT scan. She does have some atelectasis which is likely secondary to hypoventilation related to pain from her T7 spinal compression fracture. There is currently no evidence of congestive heart failure or pulmonary embolism. -IV fluids for hydration -Supplemental oxygen as needed -Nebulized albuterol and DuoNeb nebs -Solu-Medrol 40 mg IV every 6 hours -Levofloxacin 500 mg IV daily HYPOXIC RESPIRATORY FAILURE-secondary to COPD exacerbation with bronchitis as well as atelectasis from hypoventilation. -Management as above T7 SPINAL COMPRESSION FRACTURE-ongoing pain, fracture approximately 1 month ago. She has been seen and evaluated by Dr. Garcia and not felt to be a candidate for any type of surgical intervention. -Physical therapy -Outpatient DEXA scan -Calcitonin one inhalation daily -Calcium with vitamin D twice daily -May need to consider jail placement for daily physical therapy and strengthening HISTORY OF PULMONARY EMBOLI AND DEEP VEIN THROMBOSIS-on long-term oral anticoagulation with warfarin. INR is subtherapeutic one obtained today in the emergency department. -Warfarin 5 mg by mouth today -Recheck INR in a.m. MAINTENANCE ISSUES -DVT prophylaxis; current therapy warfarin should provide adequate DVT prophylaxis -GI prophylaxis; continue outpatient PPI therapy -Alarcon catheter; not indicated -Nutrition; 2 g sodium diet -Nicotine dependence; not required CODE STATUS-FULL CODE ADMISSION STATUS-patient will be admitted to inpatient status, expect at least a 2 night hospital stay for evaluation and management of problems as outlined above. At the time of this admission I do not reasonably expected evaluation and management of this problem will require more than a 96 hour hospital stay. DISPOSITION-anticipate discharge to home after the hospital stay. PRIMARY CARE PROVIDER-Dr. Agustin
[2017-05-12] MEDS ORDERED: Polyethylene Glycol 3350 Powder 17 GM Packet PO PRN (16:40)
[2017-05-12] MEDS ORDERED: Docusate Sodium 100 MG Cap PO PRN (16:40)
[2017-05-12] MEDS ORDERED: Ondansetron 4 MG/2 ML SDV IV PRN (16:40)
[2017-05-12] MEDS ORDERED: Acetaminophen 325 MG Tab PO PRN (16:40)
[2017-05-12] MEDS ORDERED: Nitroglycerin 0.4 MG Tab.SL SL SCH (16:40)
[2017-05-12] MEDS ORDERED: Magnesium Hydroxide 400 MG/5 ML Susp 30 ML Cup PO PRN (16:40)
[2017-05-12] MEDS ORDERED: Arformoterol 15 MCG/2 ML Neb Soln INH PRN (16:40)
[2017-05-12] MEDS ORDERED: traZODone 50 MG Tab PO PRN (16:40)
[2017-05-12] MEDS ORDERED: Albuterol 0.083% 2.5 MG/3 ML Neb Soln NEB PRN (16:40)
[2017-05-12] MEDS: Sodium Chloride 0.9% 1,000 ML IV SCH (17:25)
[2017-05-12] MEDS ORDERED: Warfarin 5 MG Tab PO ONE (17:30)
[2017-05-12] MEDS: Albuterol/Ipratropium 3.0-0.5 MG/3 ML Neb Soln NEB SCH (21:41)
[2017-05-12] MEDS: Gabapentin 300 MG Cap PO SCH (21:45)
[2017-05-12] MEDS: Metoprolol Tartrate 50 MG Tab PO SCH (21:45)
[2017-05-12] MEDS: methylPREDNISolone Sodium Succinate 40 MG/1 ML SDV IVPUSH SCH (21:45)
[2017-05-12] MEDS: guaiFENesin/Dextromethorphan 100-10 MG/5 ML Soln 10 ML Cup PO PRN (21:46)
[2017-05-12] MEDS: Benzonatate 100 MG Cap PO PRN (21:46)
[2017-05-12] MEDS: cycloSPORINE Ophth Drops U/D Box of 30 EYEBOTH SCH (21:46)
[2017-05-13] MEDS: guaiFENesin/Dextromethorphan 100-10 MG/5 ML Soln 10 ML Cup PO PRN ×3 (05:01→22:47)
[2017-05-13] MEDS: methylPREDNISolone Sodium Succinate 40 MG/1 ML SDV IVPUSH SCH ×3 (05:01→22:47)
[2017-05-13] MEDS: Sodium Chloride 0.9% 1,000 ML IV SCH (07:11)
[2017-05-13] MEDS: Albuterol/Ipratropium 3.0-0.5 MG/3 ML Neb Soln NEB SCH ×4 (07:19→20:30)
[2017-05-13] MEDS: Calcitonin (Salmon) Nasal Spray 3.7 ML Bottle NAS SCH (08:15)
[2017-05-13] MEDS: cycloSPORINE Ophth Drops U/D Box of 30 EYEBOTH SCH ×2 (08:17→20:33)
[2017-05-13] MEDS: Fluticasone Propionate Nasal Spray 16 GM Bottle NASBOTH SCH (08:18)
[2017-05-13] MEDS: PARoxetine 20 MG Tab PO SCH (08:18)
[2017-05-13] MEDS: Levothyroxine 112 MCG Tab PO SCH (08:18)
[2017-05-13] MEDS: Lactobacillus Rhamnosus GG (Probiotic) Cap PO SCH (08:18)
[2017-05-13] MEDS: Gabapentin 300 MG Cap PO SCH ×2 (08:18→20:54)
[2017-05-13] MEDS: Ferrous Sulfate 325 MG Tab PO SCH (08:18)
[2017-05-13] MEDS: Pantoprazole 40 MG Tab.CR PO SCH (08:18)
[2017-05-13] MEDS: Furosemide 40 MG Tab PO SCH (08:18)
[2017-05-13] MEDS: Metoprolol Tartrate 50 MG Tab PO SCH ×2 (08:19→20:32)
--- NOTE | 2017-05-13 13:11 | PCM.PN ---
- General Info Date of Service: 05/13/17 Functional Status: Reports: pain controlled, tolerating diet, urinating - Review of Systems General: Reports: Weakness. Denies: Fever, Chills Pulmonary: Reports: shortness of breath, cough, sputum, wheezing. Denies: pleuritic chest pain, hemoptysis Cardiovascular: Reports: No Symptoms Gastrointestinal: Reports: No symptoms Musculoskeletal: Reports: back pain Systems Review Comment:: Ms. Khan has felt improved since admission with less shortness of breath and cough. Vital signs have been stable and she has remained afebrile. Back pain seems to be fairly well controlled with current management. - Patient Data Vitals - most recent: Last Vital Signs Temp 97.2 F 05/13/17 12:00 Pulse 77 05/13/17 12:00 Resp 20 05/13/17 12:00 BP 135/64 05/13/17 12:00 Pulse Ox 93 L 05/13/17 12:00 Weight - most recent: 199 lb 15.983 oz I&O - last 24 hours: Intake & Output 05/12/17 05/13/17 05/13/17 22:59 06:59 14:59 Intake Total 180 883 720 Output Total 500 550 Balance -320 333 720 Lab Results last 24 hrs: Laboratory Results - last 24 hr 05/12/17 05/13/17 05/13/17 Range/Units 17:45 05:25 05:25 WBC 9.1 (4.5-11.0) K/uL RBC 4.10 (3.30-5.50) M/uL Hgb 11.9 L (12.0-15.0) g/dL Hct 39.8 (36.0-48.0) % MCV 97 (80-98) fL MCH 29 (27-31) pg MCHC 30 L (32-36) % Plt Count 215 (150-400) K/uL Neut % (Auto) 89 H (36-66) % Lymph % (Auto) 10 L (24-44) % [place] % (Auto) 1 L (2-6) % Eos % (Auto) 0 L (2-4) % Baso % (Auto) 0 (0-1) % PT 17.7 H (9.5-12.0) sec INR 1.62 H (0.80-1.20) Sodium (140-148) mmol/L Potassium (3.6-5.2) mmol/L Chloride (100-108) mmol/L Carbon Dioxide (21-32) mmol/L Anion Gap (5.0-14.0) mmol/L BUN (7-18) mg/dL Creatinine (0.6-1.0) mg/dL Est Cr Clr Drug Dosing mL/min Estimated GFR (MDRD) (>60) Glucose (74-106) mg/dL Calcium (8.5-10.1) mg/dL Urine Color Yellow Urine Appearance Clear Urine pH 6.0 (4.5-8.0) Ur Specific [place] 1.010 (1.008-1.030) Urine Protein Trace (NEGATIVE) mg/dL Urine Glucose (UA) Normal (NEGATIVE) mg/dL Urine Ketones Negative (NEGATIVE) mg/dL Urine Occult Blood Negative (NEGATIVE) Urine Nitrite Negative (NEGATIVE) Urine Bilirubin Small (NEGATIVE) Urine Urobilinogen Normal (NORMAL) mg/dL Ur Leukocyte Esterase Negative (NEGATIVE) Urine RBC 0-5 (0-5) Urine WBC 0-5 (0-5) Ur Epithelial Cells Few Amorphous Sediment Few Urine Bacteria Not seen Urine Mucus Not seen 05/13/17 Range/Units 05:25 WBC (4.5-11.0) K/uL RBC (3.30-5.50) M/uL Hgb (12.0-15.0) g/dL Hct (36.0-48.0) % MCV (80-98) fL MCH (27-31) pg MCHC (32-36) % Plt Count (150-400) K/uL Neut % (Auto) (36-66) % Lymph % (Auto) (24-44) % [place] % (Auto) (2-6) % Eos % (Auto) (2-4) % Baso % (Auto) (0-1) % PT (9.5-12.0) sec INR (0.80-1.20) Sodium 140 (140-148) mmol/L Potassium 4.7 (3.6-5.2) mmol/L Chloride 102 (100-108) mmol/L Carbon Dioxide 33 H (21-32) mmol/L Anion Gap 9.7 (5.0-14.0) mmol/L BUN 14 (7-18) mg/dL Creatinine 1.0 (0.6-1.0) mg/dL Est Cr Clr Drug Dosing 33.58 mL/min Estimated GFR (MDRD) 52 L (>60) Glucose 164 H (74-106) mg/dL Calcium 8.5 (8.5-10.1) mg/dL Urine Color Urine Appearance Urine pH (4.5-8.0) Ur Specific [place] (1.008-1.030) Urine Protein (NEGATIVE) mg/dL Urine Glucose (UA) (NEGATIVE) mg/dL Urine Ketones (NEGATIVE) mg/dL Urine Occult Blood (NEGATIVE) Urine Nitrite (NEGATIVE) Urine Bilirubin (NEGATIVE) Urine Urobilinogen (NORMAL) mg/dL Ur Leukocyte Esterase (NEGATIVE) Urine RBC (0-5) Urine WBC (0-5) Ur Epithelial Cells Amorphous Sediment Urine Bacteria Urine Mucus Biju Results last 24 hrs: Microbiology 05/13/17 08:38 Gram Stain - Final Sputum - Expectorated Med Orders - Current: Current Medications Acetaminophen (Tylenol) 650 mg PO Q4H PRN PRN Reason: Pain (Mild 1-3)/fever Albuterol (Proventil Neb Soln) 2.5 mg NEB Q4H PRN PRN Reason: Shortness Of Breath/wheezing Albuterol/Ipratropium (Duoneb 3.0-0.5 Mg/3 Ml) 3 ml NEB QIDRT [facility] Last Admin: 05/13/17 10:52 Dose: 3 ml Arformoterol Tartrate (Brovana) 15 mcg INH BIDRT PRN PRN Reason: Wheezing Benzonatate (Tessalon Perles) 100 mg PO TID PRN PRN Reason: Cough Last Admin: 05/12/17 21:46 Dose: 100 mg Calcitonin [place] (Miacalcin Nasal [place]) 0 ml MILLY DAILY [facility] Last Admin: 05/13/17 08:15 Dose: Not Given Cyclosporine (Restasis) 0 each EYEBOTH BID [facility] Last Admin: 05/13/17 08:17 Dose: 1 drop Docusate Sodium (Colace) 100 mg PO BID PRN PRN Reason: Constipation Ferrous Sulfate (Ferrous Sulfate) 325 mg PO DAILY@0800 [facility] Last Admin: 05/13/17 08:18 Dose: 325 mg Fluticasone Propionate (Flonase) 0 gm NASBOTH DAILY [facility] Last Admin: 05/13/17 08:18 Dose: 1 spray Furosemide (Lasix) 40 mg PO DAILY [facility] Last Admin: 05/13/17 08:18 Dose: 40 mg Gabapentin (Neurontin) 300 mg PO BID [facility] Last Admin: 05/13/17 08:18 Dose: 300 mg Guaifenesin/Dextromethorphan (Robitussin Dm) 10 ml PO Q4H PRN PRN Reason: Cough Last Admin: 05/13/17 10:28 Dose: 10 ml Levofloxacin/Dextrose 500 mg/ (Premix) 100 mls @ 100 mls/hr IV Q24H [facility] Lactobacillus Rhamnosus (Culturelle) 1 cap PO DAILY [facility] Last Admin: 05/13/17 08:18 Dose: 1 cap Levothyroxine Sodium (Levothyroxine) 112 mcg PO DAILY@0730 [facility] Last Admin: 05/13/17 08:18 Dose: 112 mcg Magnesium Hydroxide (Milk Of Magnesia) 30 ml PO Q12H PRN PRN Reason: Constipation Methylprednisolone Sodium Succinate (Solu-Medrol) 40 mg IVPUSH Q8H [facility] Last Admin: 05/13/17 05:01 Dose: 40 mg Metoprolol Tartrate (Lopressor) 50 mg PO BID [facility] Last Admin: 05/13/17 08:19 Dose: 50 mg Nitroglycerin (Nitrostat) 0.4 mg SL ASDIRECTED [facility] Ondansetron HCl (Zofran) 4 mg IV Q4H PRN PRN Reason: Nausea/Vomiting Oxycodone HCl (Oxycodone) 5 mg PO Q4H PRN PRN Reason: Pain (moderate 4-6) Pantoprazole Sodium (Protonix) 40 mg PO DAILY@0730 [facility] Last Admin: 05/13/17 08:18 Dose: 40 mg Paroxetine HCl (Paxil) 20 mg PO DAILY [facility] Last Admin: 05/13/17 08:18 Dose: 20 mg Polyethylene Glycol (Miralax) 17 gm PO DAILY PRN PRN Reason: Constipation Sodium Chloride (Saline Flush) 10 ml FLUSH ASDIRECTED PRN PRN Reason: Keep Vein Open Trazodone HCl (Trazodone) 25 mg PO BEDTIME PRN PRN Reason: Insomnia Discontinued Medications Lactated Ringer's (Ringers, Lactated) 1,000 mls @ 500 mls/hr IV ASDIRECTED ONE Stop: 05/12/17 12:24 Last Admin: 05/12/17 10:48 Dose: 500 mls/hr Sodium Chloride (Normal Saline) 75 mls @ 3 mls/sec IV ONETIME ONE Stop: 05/12/17 12:34 Last Admin: 05/12/17 12:45 Dose: 3 mls/sec Levofloxacin/Dextrose 500 mg/ (Premix) 100 mls @ 100 mls/hr IV ONETIME ONE Stop: 05/12/17 14:20 Last Admin: 05/12/17 14:05 Dose: 100 mls/hr Sodium Chloride (Normal Saline) 1,000 mls @ 75 mls/hr IV ASDIRECTED [facility] Last Admin: 05/13/17 07:11 Dose: 75 mls/hr Iopamidol (Isovue-300 (61%)) 100 ml IV . DIRECTED PRN PRN Reason: RADIOLOGY EXAM Stop: 05/12/17 12:34 Last Admin: 05/12/17 12:45 Dose: 100 ml Ketorolac Tromethamine (Toradol) 30 mg IVPUSH ONETIME ONE Stop: 05/12/17 10:43 Last Admin: 05/12/17 10:52 Dose: 30 mg Methylprednisolone Sodium Succinate (Solu-Medrol) 40 mg IVPUSH ONETIME ONE Stop: 05/12/17 13:22 Last Admin: 05/12/17 14:01 Dose: 40 mg Ondansetron HCl (Zofran) 4 mg IVPUSH ONETIME ONE Stop: 05/12/17 12:29 Last Admin: 05/12/17 12:32 Dose: 4 mg Prochlorperazine Edisylate (Compazine) 5 mg IVPUSH ONETIME ONE Stop: 05/12/17 14:12 Last Admin: 05/12/17 14:18 Dose: 5 mg Sodium Chloride (Saline Flush) 10 ml FLUSH ASDIRECTED PRN PRN Reason: Keep Vein Open Last Admin: 05/12/17 14:01 Dose: 10 ml Sodium Chloride (Saline Flush) 10 ml FLUSH ONETIME PRN PRN Reason: PER RADIOLOGY PROTOCOL Last Admin: 05/12/17 12:45 Dose: 10 ml Warfarin Sodium (Coumadin) 5 mg PO ONETIME ONE Stop: 05/12/17 17:31 Last Admin: 05/12/17 17:38 Dose: 5 mg - Exam Quality Assessment: DVT prophylaxis General: alert, oriented, cooperative, no acute distress Lungs: Normal respiratory effort, Decreased breath sounds, Rhonchi, Wheezing. No: Crackles, Rales, Rub, Stridor Cardiovascular: Regular Rate, Regular Rhythm, No Murmurs, Murmurs Abdomen: bowel sounds present, soft, no tenderness, no distension Back Exam: Vertebral Tenderness Extremities: no edema Skin: warm, dry, intact - Problem List Review Problem List Initiated/Reviewed/Updated: Yes - My Orders Last 24 Hours: My Active Orders 05/12/17 16:11 Resuscitation Status Routine 05/12/17 16:40 Patient Status [ADT] Routine Intake and Output [RC] QSHIFT Notify Provider Vital Signs [RC] ASDIRECTED Oxygen Therapy [RC] PRN Peripheral IV Care [RC] Q12H RT Aerosol Therapy [RC] ASDIRECTED Up With Assistance [RC] ASDIRECTED VTE/DVT Education [RC] Per Unit Routine Vital Signs [RC] Q4H PT Evaluation and Treatment [CONS] Routine Acetaminophen [Tylenol] 650 mg PO Q4H PRN Albuterol [Proventil Neb Soln] 2.5 mg NEB Q4H PRN Docusate Sodium [Colace] 100 mg PO BID PRN Magnesium Hydroxide [Milk of Magnesia] 30 ml PO Q12H PRN Ondansetron [Zofran] 4 mg IV Q4H PRN Polyethylene Glycol 3350 [MiraLAX] 17 gm PO DAILY PRN Sodium Chloride 0.9% [Saline Flush] 10 ml FLUSH ASDIRECTED PRN oxyCODONE 5 mg PO Q4H PRN Peripheral IV Insertion Adult [OM.PC] Routine Sequential Compression Device [OM.PC] Per Unit Routine VTE Pharmacological Contraindications [AST] Per Unit Routine 05/12/17 21:00 Albuterol/Ipratropium [DuoNeb 3.0-0.5 MG/3 ML] 3 ml NEB QIDRT 05/12/17 22:00 methylPREDNISolone Sod Succ [Solu-MEDROL] 40 mg IVPUSH Q8H 05/13/17 08:38 CULTURE RESPIRATORY + SMEAR [RM] Stat 05/13/17 09:00 Calcitonin ([place]) [Miacalcin Nasal [place]] See Dose Instructions MILLY DAILY 05/13/17 12:30 Incentive Spirometry [RT Incentive Spirometry] [RC] ASDIRECTED Convert IV to Saline Lock [OM.PC] Routine 05/13/17 14:00 Levofloxacin/Dextrose 5%-Water [Levaquin in D5W 500 MG/100 ML] 500 mg Premix Bag 1 bag IV Q24H 05/14/17 05:00 INR,PT,PROTHROMBIN TIME [COAG] Timed - Plan Plan:: ASSESSMENT AND PLAN COPD EXACERBATION SECONDARY TO BRONCHITIS-she has no formal diagnosis of COPD but does have a long-standing history of secondhand smoke exposure and previous smoking history. Over the past month has become more short of breath and now has developed cough productive of colored sputum. There is modest elevation in white blood cell count, no significant infiltrate identified on CT scan. She is felt improved since admission with less shortness of breath and cough -Saline lock IV -Supplemental oxygen as needed -Nebulized albuterol and DuoNeb nebs -Solu-Medrol 40 mg IV every 6 hours -Levofloxacin 500 mg IV daily HYPOXIC RESPIRATORY FAILURE-secondary to COPD exacerbation with bronchitis as well as atelectasis from hypoventilation. -Management as above T7 SPINAL COMPRESSION FRACTURE-ongoing pain, fracture approximately 1 month ago. She has been seen and evaluated by Dr. Garcia and not felt to be a candidate for any type of surgical intervention. 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 INR is subtherapeutic one obtained today in the emergency department. -Warfarin 5 mg by mouth today -Recheck INR in a.m. MAINTENANCE ISSUES -DVT prophylaxis; current therapy warfarin should provide adequate DVT prophylaxis -GI prophylaxis; continue outpatient PPI therapy -Alarcon catheter; not indicated -Nutrition; 2 g sodium diet -Nicotine dependence; not required CODE STATUS-FULL CODE ADMISSION STATUS-patient will be admitted to inpatient status, expect at least a 2 night hospital stay for evaluation and management of problems as outlined above. At the time of this admission I do not reasonably expected evaluation and management of this problem will require more than a 96 hour hospital stay. DISPOSITION-anticipate discharge to home after the hospital stay. PRIMARY CARE PROVIDER-Dr. Agustin
[2017-05-13] MEDS: Levofloxacin/Dextrose 5%-Water 500 MG in Premix Bag 1 BAG IV SCH (14:09)
[2017-05-13] MEDS: oxyCODONE 5 MG Tab PO PRN (20:43)
[2017-05-13] MEDS: Benzonatate 100 MG Cap PO PRN (20:44)
[2017-05-14] MEDS: methylPREDNISolone Sodium Succinate 40 MG/1 ML SDV IVPUSH SCH ×2 (05:02→15:10)
[2017-05-14] MEDS: Albuterol/Ipratropium 3.0-0.5 MG/3 ML Neb Soln NEB SCH ×3 (07:21→14:21)
[2017-05-14] MEDS: Levothyroxine 112 MCG Tab PO SCH (07:46)
[2017-05-14] MEDS: Pantoprazole 40 MG Tab.CR PO SCH (07:47)
[2017-05-14] MEDS: Ferrous Sulfate 325 MG Tab PO SCH (07:47)
[2017-05-14] MEDS: oxyCODONE 5 MG Tab PO PRN ×2 (08:34→19:35)
[2017-05-14] MEDS: Lactobacillus Rhamnosus GG (Probiotic) Cap PO SCH (08:34)
[2017-05-14] MEDS: Fluticasone Propionate Nasal Spray 16 GM Bottle NASBOTH SCH (08:34)
[2017-05-14] MEDS: Furosemide 40 MG Tab PO SCH (08:35)
[2017-05-14] MEDS: Metoprolol Tartrate 50 MG Tab PO SCH ×2 (08:35→20:39)
[2017-05-14] MEDS: PARoxetine 20 MG Tab PO SCH (08:36)
[2017-05-14] MEDS: Calcitonin (Salmon) Nasal Spray 3.7 ML Bottle NAS SCH (08:36)
[2017-05-14] MEDS: cycloSPORINE Ophth Drops U/D Box of 30 EYEBOTH SCH ×2 (08:37→20:36)
[2017-05-14] MEDS: Gabapentin 300 MG Cap PO SCH ×2 (09:02→20:42)
--- NOTE | 2017-05-14 15:05 | PCM.PN ---
- General Info Date of Service: 05/14/17 Functional Status: Reports: pain controlled, tolerating diet, ambulating - Review of Systems General: Reports: Weakness. Denies: Fever, Chills Pulmonary: Reports: shortness of breath, cough, wheezing. Denies: pleuritic chest pain, sputum, hemoptysis Cardiovascular: Reports: Dyspnea on Exertion, Edema. Denies: Chest Pain, Palpitations, Orthopnea, PND, Lightheadedness Gastrointestinal: Reports: No symptoms Musculoskeletal: Reports: back pain Systems Review Comment:: Ms. Khan feels improved over the past 24 hours with shortness of breath and cough. Breathing is not yet back to baseline but significantly improved from admission. Vital signs have been stable and she has remained afebrile. Pain control has been adequate, but does worsen with movement. - Patient Data Vitals - most recent: Last Vital Signs Temp 96.4 F 05/14/17 14:28 Pulse 70 05/14/17 14:28 Resp 18 05/14/17 14:28 BP 168/81 H 05/14/17 14:28 Pulse Ox 96 05/14/17 14:28 Weight - most recent: 199 lb 15.983 oz I&O - last 24 hours: Intake & Output 05/14/17 05/14/17 05/14/17 06:59 14:59 22:59 Intake Total 600 Output Total 900 Balance -300 Lab Results last 24 hrs: Laboratory Results - last 24 hr 05/14/17 Range/Units 05:00 PT 26.8 H (9.5-12.0) sec INR 2.41 H (0.80-1.20) Biju Results last 24 hrs: Microbiology 05/13/17 08:38 Gram Stain - Final Sputum - Expectorated Respiratory Culture - Preliminary Med Orders - Current: Current Medications Acetaminophen (Tylenol) 650 mg PO Q4H PRN PRN Reason: Pain (Mild 1-3)/fever Albuterol (Proventil Neb Soln) 2.5 mg NEB Q4H PRN PRN Reason: Shortness Of Breath/wheezing Benzonatate (Tessalon Perles) 100 mg PO TID PRN PRN Reason: Cough Last Admin: 05/13/17 20:44 Dose: 100 mg Calcitonin [place] (Miacalcin Nasal [place]) 0 ml MILLY DAILY [facility] Last Admin: 05/14/17 08:36 Dose: Not Given Cyclosporine (Restasis) 0 each EYEBOTH BID [facility] Last Admin: 05/14/17 08:37 Dose: 1 drop Docusate Sodium (Colace) 100 mg PO BID PRN PRN Reason: Constipation Ferrous Sulfate (Ferrous Sulfate) 325 mg PO DAILY@0800 [facility] Last Admin: 05/14/17 07:47 Dose: 325 mg Fluticasone Propionate (Flonase) 0 gm NASBOTH DAILY [facility] Last Admin: 05/14/17 08:34 Dose: 1 spray Furosemide (Lasix) 40 mg PO DAILY [facility] Last Admin: 05/14/17 08:35 Dose: 40 mg Gabapentin (Neurontin) 300 mg PO BID [facility] Last Admin: 05/14/17 09:02 Dose: 300 mg Guaifenesin/Dextromethorphan (Robitussin Dm) 10 ml PO Q4H PRN PRN Reason: Cough Last Admin: 05/13/17 22:47 Dose: 10 ml Levofloxacin/Dextrose 500 mg/ (Premix) 100 mls @ 100 mls/hr IV Q24H [facility] Last Admin: 05/13/17 14:09 Dose: 100 mls/hr Lactobacillus Rhamnosus (Culturelle) 1 cap PO DAILY [facility] Last Admin: 05/14/17 08:34 Dose: 1 cap Levothyroxine Sodium (Levothyroxine) 112 mcg PO DAILY@0730 [facility] Last Admin: 05/14/17 07:46 Dose: 112 mcg Magnesium Hydroxide (Milk Of Magnesia) 30 ml PO Q12H PRN PRN Reason: Constipation Methylprednisolone Sodium Succinate (Solu-Medrol) 40 mg IVPUSH Q8H [facility] Last Admin: 05/14/17 05:02 Dose: 40 mg Metoprolol Tartrate (Lopressor) 50 mg PO BID [facility] Last Admin: 05/14/17 08:35 Dose: 50 mg Nitroglycerin (Nitrostat) 0.4 mg SL ASDIRECTED [facility] Ondansetron HCl (Zofran) 4 mg IV Q4H PRN PRN Reason: Nausea/Vomiting Oxycodone HCl (Oxycodone) 5 mg PO Q4H PRN PRN Reason: Pain (moderate 4-6) Last Admin: 05/14/17 08:34 Dose: 5 mg Pantoprazole Sodium (Protonix) 40 mg PO DAILY@0730 [facility] Last Admin: 05/14/17 07:47 Dose: 40 mg Paroxetine HCl (Paxil) 20 mg PO DAILY [facility] Last Admin: 05/14/17 08:36 Dose: 20 mg Polyethylene Glycol (Miralax) 17 gm PO DAILY PRN PRN Reason: Constipation Sodium Chloride (Saline Flush) 10 ml FLUSH ASDIRECTED PRN PRN Reason: Keep Vein Open Trazodone HCl (Trazodone) 25 mg PO BEDTIME PRN PRN Reason: Insomnia Discontinued Medications Albuterol/Ipratropium (Duoneb 3.0-0.5 Mg/3 Ml) 3 ml NEB QIDRT [facility] Last Admin: 05/14/17 14:21 Dose: 3 ml Arformoterol Tartrate (Brovana) 15 mcg INH BIDRT PRN PRN Reason: Wheezing Last Admin: 05/13/17 14:56 Dose: 15 mcg Lactated Ringer's (Ringers, Lactated) 1,000 mls @ 500 mls/hr IV ASDIRECTED ONE Stop: 05/12/17 12:24 Last Admin: 05/12/17 10:48 Dose: 500 mls/hr Sodium Chloride (Normal Saline) 75 mls @ 3 mls/sec IV ONETIME ONE Stop: 05/12/17 12:34 Last Admin: 05/12/17 12:45 Dose: 3 mls/sec Levofloxacin/Dextrose 500 mg/ (Premix) 100 mls @ 100 mls/hr IV ONETIME ONE Stop: 05/12/17 14:20 Last Admin: 05/12/17 14:05 Dose: 100 mls/hr Sodium Chloride (Normal Saline) 1,000 mls @ 75 mls/hr IV ASDIRECTED [facility] Last Admin: 05/13/17 07:11 Dose: 75 mls/hr Iopamidol (Isovue-300 (61%)) 100 ml IV . DIRECTED PRN PRN Reason: RADIOLOGY EXAM Stop: 05/12/17 12:34 Last Admin: 05/12/17 12:45 Dose: 100 ml Ketorolac Tromethamine (Toradol) 30 mg IVPUSH ONETIME ONE Stop: 05/12/17 10:43 Last Admin: 05/12/17 10:52 Dose: 30 mg Methylprednisolone Sodium Succinate (Solu-Medrol) 40 mg IVPUSH ONETIME ONE Stop: 05/12/17 13:22 Last Admin: 05/12/17 14:01 Dose: 40 mg Ondansetron HCl (Zofran) 4 mg IVPUSH ONETIME ONE Stop: 05/12/17 12:29 Last Admin: 05/12/17 12:32 Dose: 4 mg Prochlorperazine Edisylate (Compazine) 5 mg IVPUSH ONETIME ONE Stop: 05/12/17 14:12 Last Admin: 05/12/17 14:18 Dose: 5 mg Sodium Chloride (Saline Flush) 10 ml FLUSH ASDIRECTED PRN PRN Reason: Keep Vein Open Last Admin: 05/12/17 14:01 Dose: 10 ml Sodium Chloride (Saline Flush) 10 ml FLUSH ONETIME PRN PRN Reason: PER RADIOLOGY PROTOCOL Last Admin: 05/12/17 12:45 Dose: 10 ml Warfarin Sodium (Coumadin) 5 mg PO ONETIME ONE Stop: 05/12/17 17:31 Last Admin: 05/12/17 17:38 Dose: 5 mg - Exam Quality Assessment: supplemental oxygen, DVT prophylaxis General: alert, oriented, cooperative, mild distress Lungs: Decreased breath sounds, Rhonchi, Wheezing. No: Crackles, Rales, Rub, Stridor Cardiovascular: Regular Rate, Regular Rhythm, No Murmurs Abdomen: bowel sounds present, soft, no tenderness, no distension Extremities: edema Skin: warm, dry, intact - Problem List Review Problem List Initiated/Reviewed/Updated: Yes - My Orders Last 24 Hours: My Active Orders 05/14/17 21:00 Arformoterol [Brovana] 15 mcg INH BIDRT - Plan Plan:: ASSESSMENT AND PLAN COPD EXACERBATION SECONDARY TO BRONCHITIS-she has no formal diagnosis of COPD but does have a long-standing history of secondhand smoke exposure and previous smoking history. Over the past month has become more short of breath and now has developed cough productive of colored sputum. There is modest elevation in white blood cell count, no significant infiltrate identified on CT scan. She has felt improved since admission with less shortness of breath and cough -Saline lock IV -Supplemental oxygen as needed -Nebulized albuterol and DuoNeb nebs -Prednisone 40 mg by mouth daily -Levofloxacin 500 mg IV daily HYPOXIC RESPIRATORY FAILURE-secondary to COPD exacerbation with bronchitis as well as atelectasis from hypoventilation. -Management as above T7 SPINAL COMPRESSION FRACTURE-ongoing pain, fracture approximately 1 month ago. She has been seen and evaluated by Dr. Garcia and not felt to be a candidate for any type of surgical intervention. 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 INR is subtherapeutic one obtained today in the emergency department. -Warfarin 2.5 mg by mouth today -Recheck INR in a.m. MAINTENANCE ISSUES -DVT prophylaxis; current therapy warfarin should provide adequate DVT prophylaxis -GI prophylaxis; continue outpatient PPI therapy -Alarcon catheter; not indicated -Nutrition; 2 g sodium diet -Nicotine dependence; not required CODE STATUS-FULL CODE ADMISSION STATUS-patient will be admitted to inpatient status, expect at least a 2 night hospital stay for evaluation and management of problems as outlined above. At the time of this admission I do not reasonably expected evaluation and management of this problem will require more than a 96 hour hospital stay. DISPOSITION-anticipate discharge to home after the hospital stay. PRIMARY CARE PROVIDER-Dr. Agustin
[2017-05-14] MEDS: Levofloxacin/Dextrose 5%-Water 500 MG in Premix Bag 1 BAG IV SCH (15:09)
--- NOTE | 2017-05-14 15:34 | PCM.DCSUM1 ---
Discharge Summary - Hospital Course Brief History: Ms. Khan is an 86-year-old woman who was admitted through the emergency department with hypoxia secondary to COPD exacerbation and underlying bronchitis. - Discharge Data Discharge Date: 05/15/17 Discharge Disposition: Home, Self-Care 01 Condition: Stable - Discharge Diagnosis/Problem(s) (1) COPD exacerbation SNOMED Code(s): 760573140, 273417104 ICD Code: J44.1 - CHRONIC OBSTRUCTIVE PULMONARY DISEASE W (ACUTE) EXACERBATION Status: Acute Current Visit: Yes (2) Bronchitis SNOMED Code(s): 27385149 ICD Code: J40 - BRONCHITIS, NOT SPECIFIED ACUTE OR CHRONIC Status: Acute Current Visit: Yes (3) Compression fx, thoracic spine SNOMED Code(s): 009782024, 900198461 ICD Code: S22.000A - WEDGE COMPRESSION FRACTURE OF UNSP THORACIC VERTEBRA, INIT Status: Acute Current Visit: Yes Qualifiers: Encounter type: initial encounter Fracture type: closed Qualified Code(s) : S22.000A - Wedge compression fracture of unspecified thoracic vertebra, initial encounter for closed fracture - Patient Summary/Data Consults: Consultations 05/12/17 16:40 PT Evaluation and Treatment [CONS] Routine Please Evaluate and Treat. PT Reason for Consult: T7 spinal compression fracture This query below is only for informational purposes and is not editable. Hospital Course: Ms. Kenyon is an 86-year-old woman who developed symptoms of progressive shortness of breath. On the day of admission became extremely short of breath and when evaluated in the emergency room was noted to have significant hypoxia. She was given supplemental oxygen and treated with nebulizer therapy. Saturations did improve with these interventions. Chest x-ray showed no obvious infiltrates or other potential cause of hypoxia CT scan of the chest also showed no evidence of infiltrates. She has a long-standing history of seconds and hand smoke exposure for many years and it was felt that she likely does have some underlying COPD. Also likely that she has underlying bronchitis contributing to her current exacerbation and hypoxia. She did recently been treated with azithromycin and noted no significant improvement in her symptoms. She was started on IV antibiotic therapy with levofloxacin and IV Solu-Medrol 40 mg IV every 8 hours. Nebulizer therapy was initiated with albuterol as needed and DuoNeb's 4 times daily. With these interventions she had improved significantly but still was hypoxic on room air and will require supplemental oxygen after discharge. Activity will be as tolerated and she will resume her usual diet. Anticoagulation with INR was monitored during hospital stay and at the time of discharge was therapeutic at 2.4. While on the levofloxacin her dose of warfarin has been decreased to 2.5 mg by mouth daily. Follow-up INR will be ordered for May 18. Follow-up with primary care will be at the care home and she will receive daily physical therapy and occupational therapy for ongoing management of her T7 spinal compression fracture. On discharge she will be given a limited amount of oxycodone for ongoing management of pain related to spinal compression fracture. While hospitalized she was started on calcium with vitamin D and calcitonin nasal inhaler daily. - Patient Instructions Diet: Usual Diet as Tolerated Activity: As Tolerated Other/Special Instructions: Daily physical therapy and occupational therapy while at the care home. Obtain laboratory tests on May 18; INR. - Discharge Plan Prescriptions/Med Rec: Albuterol [IJD: Albuterol] 2.5 mg NEB Q4H PRN #60 nebule PRN Reason: Dyspnea Calcitonin ([place]) [Miacalcin Nasal [place]] 1 spray MILLY DAILY #1 bottle Calcium Carbonate/Vitamin D3 [Calcium 500 + Vit D 400] 1 each PO BID #60 tablet Levofloxacin [Levaquin] 250 mg PO Q24H #5 tablet Prednisone [IJD: predniSONE] 40 mg PO DAILY #6 tablet oxyCODONE 5 mg PO Q4H PRN #30 tablet PRN Reason: Pain Home Medications: Home Meds PARoxetine HCl [Paroxetine HCl] 20 mg PO DAILY 08/16/13 [History] Lactobacillus Acidophilus [Probiotic] 1 each PO DAILY 03/05/14 [History] Fluticasone Propionate [Flonase] 2 sprays INH ASDIRECTED PRN 07/05/14 [History] Nitroglycerin [Nitrostat] 0.4 mg SL ASDIRECTED 07/05/14 [History] Gabapentin 300 mg PO BID 07/24/14 [History] Arformoterol [Brovana] 1 puff INH BID PRN 08/04/15 [History] EPINEPHrine [Epipen] 0.3 mg IM ONETIME 08/04/15 [History] Furosemide [Lasix] 40 mg PO DAILY 08/04/15 [History] Levothyroxine [Synthroid] 112 mcg PO DAILY 08/04/15 [History] Omeprazole Magnesium [Prilosec Otc] 40 mg PO DAILY 08/04/15 [History] traZODone 25 mg PO BEDTIME PRN 08/04/15 [History] Acetaminophen [Tylenol] 650 mg PO Q4H PRN 12/09/15 [History] Meclizine [Antivert] 25 mg PO TID PRN 12/09/15 [History] Cetirizine [ZyrTEC] 10 mg PO DAILY 02/26/16 [History] Loperamide [Imodium AD] 2 mg PO TID PRN 02/28/16 [History] Ferrous Sulfate [Iron] 325 mg PO DAILY 11/18/16 [History] cycloSPORINE [Restasis] 1 drop EYEBOTH BID 11/18/16 [History] Metoprolol Tartrate [Lopressor] 50 mg PO BID 11/26/16 [History] Cholestyramine/Aspartame [Questran Light Powder] 4 gm PO DAILY 05/12/17 [History ] Cyclobenzaprine [Flexeril] 10 mg PO BEDTIME PRN 05/12/17 [History] predniSONE [Prednisone] 10 mg PO DAILY 05/12/17 [History] Albuterol [IJD: Albuterol] 2.5 mg NEB Q4H PRN #60 nebule 05/14/17 [Rx] Calcitonin ([place]) [Miacalcin Nasal [place]] 1 spray MILLY DAILY #1 bottle [Rx] Calcium Carbonate/Vitamin D3 [Calcium 500 + Vit D 400] 1 each PO BID #60 tablet 05/14/17 [Rx] Levofloxacin [Levaquin] 250 mg PO Q24H #5 tablet 05/14/17 [Rx] Prednisone [IJD: predniSONE] 40 mg PO DAILY #6 tablet 05/14/17 [Rx] Warfarin [Coumadin] 2.5 mg PO DAILY #0 05/14/17 [Rx] oxyCODONE 5 mg PO Q4H PRN #30 tablet 05/14/17 [Rx] Referrals: Griffin Agustin MD [Primary Care Provider] - - Patient Data Vitals - Most Recent: Last Vital Signs Temp 96.4 F 05/14/17 14:28 Pulse 70 05/14/17 14:28 Resp 18 05/14/17 14:28 BP 168/81 H 05/14/17 14:28 Pulse Ox 96 05/14/17 14:28 Weight - Most Recent: 199 lb 15.983 oz I&O - Last 24 hours: Intake & Output 05/14/17 05/14/17 05/14/17 06:59 14:59 22:59 Intake Total 600 100 Output Total 900 1000 Balance -300 -900 Lab Results - Last 24 hrs: Laboratory Results - last 24 hr 05/14/17 Range/Units 05:00 PT 26.8 H (9.5-12.0) sec INR 2.41 H (0.80-1.20) JESSY Results - Last 24 hrs: Microbiology 05/13/17 08:38 Gram Stain - Final Sputum - Expectorated Respiratory Culture - Preliminary Med Orders - Current: Current Medications Acetaminophen (Tylenol) 650 mg PO Q4H PRN PRN Reason: Pain (Mild 1-3)/fever Albuterol (Proventil Neb Soln) 2.5 mg NEB Q4H PRN PRN Reason: Shortness Of Breath/wheezing Arformoterol Tartrate (Brovana) 15 mcg INH BIDRT REPLACED BY [facility] Benzonatate (Tessalon Perles) 100 mg PO TID PRN PRN Reason: Cough Last Admin: 05/13/17 20:44 Dose: 100 mg Calcitonin [place] (Miacalcin Nasal [place]) 0 ml MILLY DAILY REPLACED BY [facility] Last Admin: 05/14/17 08:36 Dose: Not Given Cyclosporine (Restasis) 0 each EYEBOTH BID REPLACED BY [facility] Last Admin: 05/14/17 08:37 Dose: 1 drop Docusate Sodium (Colace) 100 mg PO BID PRN PRN Reason: Constipation Ferrous Sulfate (Ferrous Sulfate) 325 mg PO DAILY@0800 REPLACED BY [facility] Last Admin: 05/14/17 07:47 Dose: 325 mg Fluticasone Propionate (Flonase) 0 gm NASBOTH DAILY REPLACED BY [facility] Last Admin: 05/14/17 08:34 Dose: 1 spray Furosemide (Lasix) 40 mg PO DAILY REPLACED BY [facility] Last Admin: 05/14/17 08:35 Dose: 40 mg Gabapentin (Neurontin) 300 mg PO BID REPLACED BY [facility] Last Admin: 05/14/17 09:02 Dose: 300 mg Guaifenesin/Dextromethorphan (Robitussin Dm) 10 ml PO Q4H PRN PRN Reason: Cough Last Admin: 05/13/17 22:47 Dose: 10 ml Levofloxacin/Dextrose 500 mg/ (Premix) 100 mls @ 100 mls/hr IV Q24H REPLACED BY [facility] Stop: 05/14/17 15:30 Last Admin: 05/14/17 15:09 Dose: 100 mls/hr Levofloxacin/Dextrose 250 mg/ (Premix) 50 mls @ 50 mls/hr IV Q24H REPLACED BY [facility] Lactobacillus Rhamnosus (Culturelle) 1 cap PO DAILY REPLACED BY [facility] Last Admin: 05/14/17 08:34 Dose: 1 cap Levothyroxine Sodium (Levothyroxine) 112 mcg PO DAILY@0730 REPLACED BY [facility] Last Admin: 05/14/17 07:46 Dose: 112 mcg Magnesium Hydroxide (Milk Of Magnesia) 30 ml PO Q12H PRN PRN Reason: Constipation Metoprolol Tartrate (Lopressor) 50 mg PO BID REPLACED BY [facility] Last Admin: 05/14/17 08:35 Dose: 50 mg Nitroglycerin (Nitrostat) 0.4 mg SL ASDIRECTED REPLACED BY [facility] Ondansetron HCl (Zofran) 4 mg IV Q4H PRN PRN Reason: Nausea/Vomiting Oxycodone HCl (Oxycodone) 5 mg PO Q4H PRN PRN Reason: Pain (moderate 4-6) Last Admin: 05/14/17 08:34 Dose: 5 mg Pantoprazole Sodium (Protonix) 40 mg PO DAILY@0730 REPLACED BY [facility] Last Admin: 05/14/17 07:47 Dose: 40 mg Paroxetine HCl (Paxil) 20 mg PO DAILY REPLACED BY [facility] Last Admin: 05/14/17 08:36 Dose: 20 mg Polyethylene Glycol (Miralax) 17 gm PO DAILY PRN PRN Reason: Constipation Prednisone (Prednisone) 40 mg PO DAILY REPLACED BY [facility] Sodium Chloride (Saline Flush) 10 ml FLUSH ASDIRECTED PRN PRN Reason: Keep Vein Open Trazodone HCl (Trazodone) 25 mg PO BEDTIME PRN PRN Reason: Insomnia Warfarin Sodium (Coumadin) 2.5 mg PO DAILY@1300 REPLACED BY [facility] Discontinued Medications Albuterol/Ipratropium (Duoneb 3.0-0.5 Mg/3 Ml) 3 ml NEB QIDRT REPLACED BY [facility] Last Admin: 05/14/17 14:21 Dose: 3 ml Arformoterol Tartrate (Brovana) 15 mcg INH BIDRT PRN PRN Reason: Wheezing Last Admin: 05/13/17 14:56 Dose: 15 mcg Lactated Ringer's (Ringers, Lactated) 1,000 mls @ 500 mls/hr IV ASDIRECTED ONE Stop: 05/12/17 12:24 Last Admin: 05/12/17 10:48 Dose: 500 mls/hr Sodium Chloride (Normal Saline) 75 mls @ 3 mls/sec IV ONETIME ONE Stop: 05/12/17 12:34 Last Admin: 05/12/17 12:45 Dose: 3 mls/sec Levofloxacin/Dextrose 500 mg/ (Premix) 100 mls @ 100 mls/hr IV ONETIME ONE Stop: 05/12/17 14:20 Last Admin: 05/12/17 14:05 Dose: 100 mls/hr Sodium Chloride (Normal Saline) 1,000 mls @ 75 mls/hr IV ASDIRECTED REPLACED BY [facility] Last Admin: 05/13/17 07:11 Dose: 75 mls/hr Iopamidol (Isovue-300 (61%)) 100 ml IV . DIRECTED PRN PRN Reason: RADIOLOGY EXAM Stop: 05/12/17 12:34 Last Admin: 05/12/17 12:45 Dose: 100 ml Ketorolac Tromethamine (Toradol) 30 mg IVPUSH ONETIME ONE Stop: 05/12/17 10:43 Last Admin: 05/12/17 10:52 Dose: 30 mg Methylprednisolone Sodium Succinate (Solu-Medrol) 40 mg IVPUSH ONETIME ONE Stop: 05/12/17 13:22 Last Admin: 05/12/17 14:01 Dose: 40 mg Methylprednisolone Sodium Succinate (Solu-Medrol) 40 mg IVPUSH Q8H REPLACED BY [facility] Last Admin: 05/14/17 15:10 Dose: 40 mg Ondansetron HCl (Zofran) 4 mg IVPUSH ONETIME ONE Stop: 05/12/17 12:29 Last Admin: 05/12/17 12:32 Dose: 4 mg Prochlorperazine Edisylate (Compazine) 5 mg IVPUSH ONETIME ONE Stop: 05/12/17 14:12 Last Admin: 05/12/17 14:18 Dose: 5 mg Sodium Chloride (Saline Flush) 10 ml FLUSH ASDIRECTED PRN PRN Reason: Keep Vein Open Last Admin: 05/12/17 14:01 Dose: 10 ml Sodium Chloride (Saline Flush) 10 ml FLUSH ONETIME PRN PRN Reason: PER RADIOLOGY PROTOCOL Last Admin: 05/12/17 12:45 Dose: 10 ml Warfarin Sodium (Coumadin) 5 mg PO ONETIME ONE Stop: 05/12/17 17:31 Last Admin: 05/12/17 17:38 Dose: 5 mg *Q Meaningful Use (DIS) - VTE *Q VTE Criteria *Q: VTE Pharmacological Contraindications *Q: High INR Value - Stroke *Q Stroke Criteria *Q: - AMI *Q AMI Criteria *Q:
[2017-05-14] MEDS ORDERED: Warfarin 2.5 MG Tab PO SCH (16:00)
[2017-05-14] MEDS: Benzonatate 100 MG Cap PO PRN (19:35)
[2017-05-14] MEDS: Arformoterol 15 MCG/2 ML Neb Soln INH SCH (20:38)
[2017-05-14] MEDS ORDERED: Arformoterol 15 MCG/2 ML Neb Soln INH SCH (21:00)
[2017-05-15] MEDS: Benzonatate 100 MG Cap PO PRN (02:44)
[2017-05-15] MEDS: oxyCODONE 5 MG Tab PO PRN ×2 (03:51→08:16)
[2017-05-15] MEDS: Arformoterol 15 MCG/2 ML Neb Soln INH SCH (07:21)
[2017-05-15 07:32] VITALS: BP 157/82
[2017-05-15] MEDS: Levothyroxine 112 MCG Tab PO SCH (07:42)
[2017-05-15] MEDS: Pantoprazole 40 MG Tab.CR PO SCH (07:44)
[2017-05-15] MEDS: Ferrous Sulfate 325 MG Tab PO SCH (07:48)
[2017-05-15] MEDS: Gabapentin 300 MG Cap PO SCH (08:18)
[2017-05-15] MEDS: PARoxetine 20 MG Tab PO SCH (08:18)
[2017-05-15] MEDS: Metoprolol Tartrate 50 MG Tab PO SCH (08:19)
[2017-05-15] MEDS: Lactobacillus Rhamnosus GG (Probiotic) Cap PO SCH (08:22)
[2017-05-15] MEDS: Furosemide 40 MG Tab PO SCH (08:22)
[2017-05-15] MEDS: Fluticasone Propionate Nasal Spray 16 GM Bottle NASBOTH SCH (08:24)
[2017-05-15] MEDS: cycloSPORINE Ophth Drops U/D Box of 30 EYEBOTH SCH (08:24)
[2017-05-15] MEDS: Calcitonin (Salmon) Nasal Spray 3.7 ML Bottle NAS SCH (08:25)
[2017-05-15] MEDS ORDERED: predniSONE 20 MG Tab PO SCH (09:00)
[2017-05-15] MEDS ORDERED: Levofloxacin/Dextrose 5%-Water 250 MG in Premix Bag 1 BAG IV SCH (14:00)
== END 2017-05-15 11:14 | disposition home or self-care (01) | DRG 190 ==
LOC: JP.ED 10:14 → JP.MS 15:59
PROVIDERS: ADMIT Hospitalist; ATTEND Hospitalist
DX: J44.0 Chronic obstructive pulmonary disease with (acute) lower respiratory infection (principal); J96.91 Respiratory failure, unspecified with hypoxia; J98.11 Atelectasis; J20.9 Acute bronchitis, unspecified; J44.1 Chronic obstructive pulmonary disease with (acute) exacerbation; I10 Essential (primary) hypertension; Z77.22 Contact with and (suspected) exposure to environmental tobacco smoke (acute) (chronic); E03.9 Hypothyroidism, unspecified; Z99.81 Dependence on supplemental oxygen; Z87.891 Personal history of nicotine dependence; M48.54XD Collapsed vertebra, not elsewhere classified, thoracic region, subsequent encounter for fracture with routine healing; I25.119 Atherosclerotic heart disease of native coronary artery with unspecified angina pectoris; R06.89 Other abnormalities of breathing; Z86.718 Personal history of other venous thrombosis and embolism; M54.9 Dorsalgia, unspecified; G89.29 Other chronic pain; M19.90 Unspecified osteoarthritis, unspecified site; F32.9 Major depressive disorder, single episode, unspecified; F41.9 Anxiety disorder, unspecified; Z86.711 Personal history of pulmonary embolism; Z85.828 Personal history of other malignant neoplasm of skin; Z87.01 Personal history of pneumonia (recurrent); K21.9 Gastro-esophageal reflux disease without esophagitis; J30.9 Allergic rhinitis, unspecified; I25.2 Old myocardial infarction; H54.7 Unspecified visual loss; Z79.01 Long term (current) use of anticoagulants; Z79.52 Long term (current) use of systemic steroids; Z88.6 Allergy status to analgesic agent; Z88.1 Allergy status to other antibiotic agents; Z88.5 Allergy status to narcotic agent; Z88.2 Allergy status to sulfonamides; Z88.8 Allergy status to other drugs, medicaments and biological substances
CPT/HCPCS: 36415; 36600; 71010 ×2; 71260 ×2; 80053; 82140; 82803; 83605; 84484; 85025; 85610; 85730; 86140; 87040 ×2; 93005; 96361; 96365; 96375; 99285; J0780; J1885; J1956; J2405; J2920; J7030; J7050 ×2; J7120; Q9967; 80048; 81001; 87070; 87077; 87205; 93010; 94640; 94640-76; 97110-GP; 97161-GP; 99284; A9270-GY; J7040; J7605; J7620

== ENCOUNTER 2017-06-18 10:47 | Emergency (ER) | payer MEDICARE, BC ==
[2017-06-18 11:08] VITALS: BP 154/99
[2017-06-18] MEDS ORDERED: Ondansetron 4 MG Tab.DIS PO ONE (12:03)
--- NOTE | 2017-06-18 13:36 | EDM.PDOC ---
ED HPI GENERAL MEDICAL PROBLEM - General Chief Complaint: General Stated Complaint: WEAK Time Seen by Provider: 06/18/17 11:25 Source of Information: Reports: Patient, Family History Limitations: Reports: No Limitations - History of Present Illness INITIAL COMMENTS - FREE TEXT/NARRATIVE: pt [facility] 1 [facility] 1/2 days. She is not doing well. She has had some vag spotting . This has now stopped. She is doing cold sweats and feeling nauseated. She was stopped cold turkey . She may be withdrawing. She also had the paxil stopped and her gapbapentin was stopped. Onset: Gradual Duration: Day(s):, Other (not doing well at home. ) Location: Reports: Generalized Associated Symptoms: Reports: Other ( hurts all over and feels anxious. ) - Related Data Allergies Allergy/AdvReac Type Severity Reaction Status Date / Time clindamycin Allergy Severe Difficulty Verified 06/18/17 11:05 Breathing ezetimibe [From Zetia] Allergy Severe Difficulty Verified 06/18/17 11:05 Breathing NSAIDS (Non-Steroidal Allergy Severe Airway Verified 06/18/17 11:05 Anti-Inflamma Tightness aspirin Allergy Intermediate Chest Pain Verified 06/18/17 11:05 ciprofloxacin HCl Allergy Rash Verified 06/18/17 11:05 [From Cipro] codeine Allergy Shortness Verified 06/18/17 11:05 of Breath pravastatin Allergy Other Verified 06/18/17 11:05 Sulfa (Sulfonamide Allergy Shortness Verified 06/18/17 11:05 Antibiotics) of Breath amoxicillin trihydrate AdvReac Stomach Verified 06/18/17 11:05 [From Augmentin] Upset atorvastatin calcium AdvReac Muscle Verified 06/18/17 11:05 [From Lipitor] Aches isosorbide mononitrate AdvReac Headache Verified 06/18/17 11:05 [From Imdur] morphine AdvReac Hallucinati Verified 06/18/17 11:05 ons potassium clavulanate AdvReac Stomach Verified 06/18/17 11:05 [From Augmentin] Upset pregabalin [From Lyrica] AdvReac Dizziness Verified 06/18/17 11:05 rosuvastatin calcium AdvReac Other Verified 06/18/17 11:05 [From Crestor] simvastatin [From Zocor] AdvReac Other Verified 06/18/17 11:05 [id number] Reductase AdvReac Muscle Verified 06/18/17 11:05 Inhibitor Aches Home Meds: Home Meds PARoxetine HCl [Paroxetine HCl] 20 mg PO DAILY 08/16/13 [History] Lactobacillus Acidophilus [Probiotic] 1 each PO DAILY 03/05/14 [History] Fluticasone Propionate [Flonase] 2 sprays INH ASDIRECTED PRN 07/05/14 [History] Furosemide [Lasix] 40 mg PO DAILY 08/04/15 [History] Levothyroxine [Synthroid] 112 mcg PO DAILY 08/04/15 [History] Omeprazole Magnesium [Prilosec Otc] 40 mg PO DAILY 08/04/15 [History] Acetaminophen [Tylenol] 650 mg PO Q4H PRN 12/09/15 [History] Cetirizine [ZyrTEC] 10 mg PO DAILY 02/26/16 [History] Loperamide [Imodium AD] 2 mg PO TID PRN 02/28/16 [History] Ferrous Sulfate [Iron] 325 mg PO DAILY 11/18/16 [History] cycloSPORINE [Restasis] 1 drop EYEBOTH BID 11/18/16 [History] Metoprolol Tartrate [Lopressor] 50 mg PO BID 11/26/16 [History] Cholestyramine/Aspartame [Questran Light Powder] 4 gm PO DAILY 05/12/17 [History ] Cyclobenzaprine [Flexeril] 10 mg PO BEDTIME PRN 05/12/17 [History] predniSONE [Prednisone] 10 mg PO DAILY 05/12/17 [History] Albuterol [IJD: Albuterol] 2.5 mg NEB Q4H PRN #60 nebule 05/14/17 [Rx] Calcitonin ([place]) [Miacalcin Nasal [place]] 1 spray MILLY DAILY #1 bottle [Rx] Calcium Carbonate/Vitamin D3 [Calcium 500 + Vit D 400] 1 each PO BID #60 tablet 05/14/17 [Rx] Warfarin [Coumadin] 2.5 mg PO DAILY #0 05/14/17 [Rx] oxyCODONE 5 mg PO Q4H PRN #30 tablet 05/14/17 [Rx] Past Medical History HEENT History: Reports: Allergic Rhinitis, Cataract, Impaired Vision, Sinusitis Cardiovascular History: Reports: Angina, Arrhythmia, Blood Clots/VTE/DVT, CAD, Heart Murmur, High Cholesterol, Hypertension, [place], SOB on Exertion Respiratory History: Reports: Bronchitis, Recurrent, COPD, PE, Pneumonia, Recurrent, Other (See Below) Other Respiratory History: oxygen dependent @ times. 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 compression fracture Neurological History: Reports: Vertigo, Other (See Below) Other Neuro History: bilateral optic neuropathy inner ear problems Psychiatric History: Reports: Anxiety, Depression Endocrine/Metabolic History: Reports: Hypothyroidism, Obesity/BMI 30+ Hematologic History: Reports: Anemia, Blood Transfusion(s), Iron Deficiency Oncologic (Cancer) History: Reports: Other (See Below) Other Oncologic History: skin cancer Dermatologic History: Reports: Other (See Below) Other Dermatologic History: squamous cell CA- arm ,forehead - Infectious Disease History Infectious Disease History: Reports: C-Difficile, Chicken Pox, Measles, Mumps - Past Surgical History HEENT Surgical History: Reports: Cataract Surgery, Laser Surgery, Tonsillectomy Other HEENT Surgeries/Procedures: Surgery in right ear. Cardiovascular Surgical History: Reports: Percutaneous Transluminal Angioplasty Other Cardiovascular Surgeries/Procedures: angiogram in the past in [place]. They wouldnt do anything due to "blockage was in a bad spot" GI Surgical History: Reports: Appendectomy, Cholecystectomy, Colonoscopy, EGD, [place] Fundoplication, Polypectomy, Small Bowel Female Surgical History: Reports: Breast Biopsy, D&C, Hysterectomy, Oophorectomy Endocrine Surgical History: Reports: None Musculoskeletal Surgical History: Reports: Knee Replacement Other Musculoskeletal Surgeries/Procedures:: right Oncologic Surgical History: Reports: Biopsy of Breast Dermatological Surgical History: Reports: Skin Biopsy Social & Family History - Family History Family Medical History: Noncontributory Cardiac: Reports: Afib - Tobacco Use Smoking Status *Q: Never Smoker Years of Tobacco use: 31 Packs/Tins Daily: 0.5 Used Tobacco, but Quit: Yes Month Tobacco Last Used: 32 years ago Second Hand Smoke Exposure: No - Caffeine Use Caffeine Use: Reports: None - Alcohol Use Days Per Week of Alcohol Use: 0 Number of Drinks Per Day: 0 Total Drinks Per Week: 0 - Recreational Drug Use Recreational Drug Use: No ED ROS GENERAL - Review of Systems Review Of Systems: See Below Constitutional: Reports: No Symptoms HEENT: Reports: No Symptoms Respiratory: Reports: No Symptoms Cardiovascular: Reports: Dyspnea on Exertion Endocrine: Reports: No Symptoms GI/Abdominal: Reports: No Symptoms : Reports: Other ( vag spotting) Musculoskeletal: Reports: No Symptoms Skin: Reports: No Symptoms Psychiatric: Reports: Anxiety ED EXAM, GENERAL - Physical Exam Exam: See Below Free Text/Narrative:: pt arrived feeling anxious and having nite sweats and nausea. Her oxycodone was stopped abrubtly and she has been using it q4h Exam Limited By: No Limitations General Appearance: Alert, Anxious, Mild Distress Ears: Normal TMs Nose: Normal Inspection Throat/Mouth: Normal Inspection Head: Atraumatic Neck: Normal Inspection Respiratory/Chest: No Respiratory Distress GI/Abdominal: Soft, Non-Tender (Female) Exam: Other (pelvic exam reveals inflamation in the tissue at the introitus, She is post hysterectomy and 1 and 1/2 ovaries have been removed. ) Rectal (Female) Exam: Deferred Back Exam: Normal Inspection Neurological: Alert, Oriented, Normal Cognition Psychiatric: Normal Affect Course - Vital Signs Last Recorded V/S: Last Vital Signs Temp 36.5 C 06/18/17 11:12 Pulse 89 06/18/17 11:12 Resp 18 06/18/17 11:12 BP 154/99 H 06/18/17 11:12 Pulse Ox 94 L 06/18/17 11:12 - Orders/Labs/Meds Orders: Active Orders 24 hr Category Date Time Status Pelvis Non OB Ltd [US] Stat Exams 06/18/17 12:35 Ordered Transvaginal Non OB [US] Stat Exams 06/18/17 12:35 Ordered CULTURE URINE [RM] Stat Lab 06/18/17 12:57 Received Labs: Laboratory Tests 06/18/17 06/18/17 06/18/17 Range/Units 11:15 11:15 11:15 WBC 10.9 (4.5-11.0) K/uL RBC 4.88 (3.30-5.50) M/uL Hgb 14.0 D (12.0-15.0) g/dL Hct 46.2 (36.0-48.0) % MCV 95 (80-98) fL MCH 29 (27-31) pg MCHC 30 L (32-36) % Plt Count 283 (150-400) K/uL Neut % (Auto) 63 (36-66) % Lymph % (Auto) 24 (24-44) % [place] % (Auto) 12 H (2-6) % Eos % (Auto) 1 L (2-4) % Baso % (Auto) 0 (0-1) % PT 20.7 H (9.5-12.0) sec INR 1.88 H (0.80-1.20) Sodium 140 (140-148) mmol/L Potassium 3.6 (3.6-5.2) mmol/L Chloride 100 (100-108) mmol/L Carbon Dioxide 37 H (21-32) mmol/L Anion Gap 6.6 (5.0-14.0) mmol/L BUN 10 (7-18) mg/dL Creatinine 1.0 (0.6-1.0) mg/dL Est Cr Clr Drug Dosing 33.58 mL/min Estimated GFR (MDRD) 52 L (>60) Glucose 117 H (74-106) mg/dL Calcium 8.8 (8.5-10.1) mg/dL Total Bilirubin 0.4 (0.2-1.0) mg/dL AST 24 (15-37) U/L ALT 21 (12-78) U/L Alkaline Phosphatase 155 H (46-116) U/L Total Protein 6.8 (6.4-8.2) g/dL Albumin 2.6 L (3.4-5.0) g/dL Globulin 4.2 H (2.3-3.5) g/dL Albumin/Globulin Ratio 0.6 L (1.2-2.2) Urine Color Urine Appearance Urine pH (4.5-8.0) Ur Specific [place] (1.008-1.030) Urine Protein (NEGATIVE) mg/dL Urine Glucose (UA) (NEGATIVE) mg/dL Urine Ketones (NEGATIVE) mg/dL Urine Occult Blood (NEGATIVE) Urine Nitrite (NEGATIVE) Urine Bilirubin (NEGATIVE) Urine Urobilinogen (NORMAL) mg/dL Ur Leukocyte Esterase (NEGATIVE) Urine RBC (0-5) Urine WBC (0-5) Ur Epithelial Cells Amorphous Sediment Urine Bacteria Urine Mucus 06/18/17 Range/Units 12:06 WBC (4.5-11.0) K/uL RBC (3.30-5.50) M/uL Hgb (12.0-15.0) g/dL Hct (36.0-48.0) % MCV (80-98) fL MCH (27-31) pg MCHC (32-36) % Plt Count (150-400) K/uL Neut % (Auto) (36-66) % Lymph % (Auto) (24-44) % [place] % (Auto) (2-6) % Eos % (Auto) (2-4) % Baso % (Auto) (0-1) % PT (9.5-12.0) sec INR (0.80-1.20) Sodium (140-148) mmol/L Potassium (3.6-5.2) mmol/L Chloride (100-108) mmol/L Carbon Dioxide (21-32) mmol/L Anion Gap (5.0-14.0) mmol/L BUN (7-18) mg/dL Creatinine (0.6-1.0) mg/dL Est Cr Clr Drug Dosing mL/min Estimated GFR (MDRD) (>60) Glucose (74-106) mg/dL Calcium (8.5-10.1) mg/dL Total Bilirubin (0.2-1.0) mg/dL AST (15-37) U/L ALT (12-78) U/L Alkaline Phosphatase (46-116) U/L Total Protein (6.4-8.2) g/dL Albumin (3.4-5.0) g/dL Globulin (2.3-3.5) g/dL Albumin/Globulin Ratio (1.2-2.2) Urine Color Yellow Urine Appearance Slightly cloudy Urine pH 9.0 H (4.5-8.0) Ur Specific [place] 1.020 (1.008-1.030) Urine Protein Negative (NEGATIVE) mg/dL Urine Glucose (UA) Normal (NEGATIVE) mg/dL Urine Ketones 15 H (NEGATIVE) mg/dL Urine Occult Blood Negative (NEGATIVE) Urine Nitrite Negative (NEGATIVE) Urine Bilirubin Negative (NEGATIVE) Urine Urobilinogen Normal (NORMAL) mg/dL Ur Leukocyte Esterase Moderate (NEGATIVE) Urine RBC 0-5 (0-5) Urine WBC 10-20 H (0-5) Ur Epithelial Cells Not seen Amorphous Sediment Few Urine Bacteria Not seen Urine Mucus Not seen Meds: Medications Discontinued Medications Generic Name Dose Route Start Last Admin Trade Name July PRN Reason Stop Dose Admin Ondansetron HCl 4 mg 06/18/17 12:03 06/18/17 12:58 Zofran Odt PO 06/18/17 12:04 4 mg ONETIME ONE Administration - Re-Assessments/Exams Free Text/Narrative Re-Assessment/Exam: 06/18/17 13:40 Pt arrived with history of vag bleeding She is anxious and nauseated. She may be having a narcotic withdrawal. 06/18/17 13:48 us of pelvis was done which was neg. A pap and pelvic was done. Departure - Departure Time of Disposition: 13:42 Disposition: DC/Tfer to [facility] Condition: Fair Clinical Impression: Narcotic withdrawal, Vaginal irritation - Discharge Information Forms: ED Department Discharge Care Plan Goals: transfer to the [facility]. resume oxycodone and plan to taper. a urine culture and pap smear is pending. send a copy of her lab work to the [facility]. - My Orders Last 24 Hours: My Active Orders 06/18/17 12:35 Pelvis Non OB Ltd [US] Stat Transvaginal Non OB [US] Stat 06/18/17 12:57 CULTURE URINE [RM] Stat - Assessment/Plan Last 24 Hours: My Active Orders 06/18/17 12:35 Pelvis Non OB Ltd [US] Stat Transvaginal Non OB [US] Stat 06/18/17 12:57 CULTURE URINE [RM] Stat
[2017-06-18] MEDS ORDERED: Acetaminophen/oxyCODONE 325-5 MG Tab PO ONE (13:47)
--- NOTE | 2017-06-18 14:02 | US ---
Pelvis Non OB Ltd, Transvaginal Non OB HISTORY: Vaginal bleeding. COMPARISON: CT scan 07/08/2016. FINDINGS: Patient has had prior hysterectomy. Transpelvic and endovaginal exam was performed. Ovarie s not visualized the adnexa appear unremarkable. No free fluid seen. Vaginal cuff noted. Impression: No acute findings. Prior hysterectomy.
== END 2017-06-18 14:46 ==
LOC: JP.ED 10:47
DX: F11.23 Opioid dependence with withdrawal (principal); N89.8 Other specified noninflammatory disorders of vagina; I25.119 Atherosclerotic heart disease of native coronary artery with unspecified angina pectoris; I10 Essential (primary) hypertension; I25.2 Old myocardial infarction; J44.9 Chronic obstructive pulmonary disease, unspecified; Z87.01 Personal history of pneumonia (recurrent); M19.90 Unspecified osteoarthritis, unspecified site; E03.9 Hypothyroidism, unspecified; Z85.828 Personal history of other malignant neoplasm of skin; Z90.49 Acquired absence of other specified parts of digestive tract; Z90.710 Acquired absence of both cervix and uterus; Z98.49 Cataract extraction status, unspecified eye; Z98.890 Other specified postprocedural states; Z88.1 Allergy status to other antibiotic agents; Z88.6 Allergy status to analgesic agent; Z88.5 Allergy status to narcotic agent; Z88.8 Allergy status to other drugs, medicaments and biological substances; Z88.2 Allergy status to sulfonamides; Z79.899 Other long term (current) drug therapy; Z79.01 Long term (current) use of anticoagulants
CPT/HCPCS: 36415; 76830; 76857; 80053; 81001; 85025; 85610; 87086; 99285; A9270; 88164; 99284

== ENCOUNTER 2017-10-06 08:59 | Emergency (ER) | payer MEDICARE, BC ==
[2017-10-06 09:36] VITALS: BP 141/97
--- NOTE | 2017-10-06 10:51 | EDM.PDOC ---
ED HPI GENERAL MEDICAL PROBLEM - General Chief Complaint: Back Pain or Injury Stated Complaint: MID BACK PAIN AND INTO HIPS Time Seen by Provider: 10/06/17 10:03 Source of Information: Reports: Patient, Family, Old Records, RN Notes Reviewed History Limitations: Reports: No Limitations - History of Present Illness INITIAL COMMENTS - FREE TEXT/NARRATIVE: 86-year-old female presents emergency department today complaint low back pain, she has a known history of L4 compression fracture and has had difficulty with narcotics in the past she does use Ultram which does provide some pain relief she is seeking other options for treatment lower back Pain Score (Numeric/FACES): 10 - Related Data Allergies Allergy/AdvReac Type Severity Reaction Status Date / Time clindamycin Allergy Severe Difficulty Verified 10/06/17 09:42 Breathing ezetimibe [From Zetia] Allergy Severe Difficulty Verified 10/06/17 09:42 Breathing NSAIDS (Non-Steroidal Allergy Severe Airway Verified 10/06/17 09:42 Anti-Inflamma Tightness aspirin Allergy Intermediate Chest Pain Verified 10/06/17 09:42 ciprofloxacin HCl Allergy Rash Verified 10/06/17 09:42 [From Cipro] codeine Allergy Shortness Verified 10/06/17 09:42 of Breath oxycodone [From OxyContin] Allergy Hallucinati Verified 10/06/17 09:43 ons pravastatin Allergy Other Verified 10/06/17 09:42 Sulfa (Sulfonamide Allergy Shortness Verified 10/06/17 09:42 Antibiotics) of Breath amoxicillin trihydrate AdvReac Stomach Verified 10/06/17 09:42 [From Augmentin] Upset atorvastatin calcium AdvReac Muscle Verified 10/06/17 09:42 [From Lipitor] Aches isosorbide mononitrate AdvReac Headache Verified 10/06/17 09:42 [From Imdur] morphine AdvReac Hallucinati Verified 10/06/17 09:42 ons potassium clavulanate AdvReac Stomach Verified 10/06/17 09:42 [From Augmentin] Upset pregabalin [From Lyrica] AdvReac Dizziness Verified 10/06/17 09:42 rosuvastatin calcium AdvReac Other Verified 10/06/17 09:42 [From Crestor] simvastatin [From Zocor] AdvReac Other Verified 10/06/17 09:42 [id number] Reductase AdvReac Muscle Verified 10/06/17 09:42 Inhibitor Aches Home Meds: Home Meds PARoxetine HCl [Paroxetine HCl] 10 mg PO DAILY 08/16/13 [History] Lactobacillus Acidophilus [Probiotic] 1 each PO DAILY 03/05/14 [History] Furosemide [Lasix] 40 mg PO DAILY 08/04/15 [History] Levothyroxine [Synthroid] 112 mcg PO DAILY 08/04/15 [History] Omeprazole Magnesium [Prilosec Otc] 40 mg PO DAILY 08/04/15 [History] Acetaminophen [Tylenol] 650 mg PO Q4H PRN 12/09/15 [History] Cetirizine [ZyrTEC] 10 mg PO DAILY 02/26/16 [History] Loperamide [Imodium AD] 2 mg PO TID PRN 02/28/16 [History] Ferrous Sulfate [Iron] 325 mg PO DAILY 11/18/16 [History] cycloSPORINE [Restasis] 1 drop EYEBOTH BID 11/18/16 [History] Metoprolol Tartrate [Lopressor] 50 mg PO BID 11/26/16 [History] Cyclobenzaprine [Flexeril] 10 mg PO BID PRN 05/12/17 [History] predniSONE [Prednisone] 10 mg PO DAILY 05/12/17 [History] Albuterol [IJD: Albuterol] 2.5 mg NEB Q4H PRN #60 nebule 05/14/17 [Rx] Calcium Carbonate/Vitamin D3 [Calcium 500 + Vit D 400] 1 each PO BID #60 tablet 05/14/17 [Rx] Warfarin [Coumadin] 2.5 mg PO DAILY #0 05/14/17 [Rx] traMADol [Ultram] 50 mg PO DAILY PRN 10/06/17 [History] Past Medical History HEENT History: Reports: Allergic Rhinitis, Cataract, Impaired Vision, Sinusitis Cardiovascular History: Reports: Angina, Arrhythmia, Blood Clots/VTE/DVT, CAD, Heart Murmur, High Cholesterol, Hypertension, [place], SOB on Exertion Respiratory History: Reports: Bronchitis, Recurrent, COPD, PE, Pneumonia, Recurrent, Other (See Below) Other Respiratory History: oxygen dependent @ times. lung nodules Gastrointestinal History: Reports: Chronic Diarrhea, Colon Polyp, Gastritis, GERD, Hemorrhoids, Hepatitis, Hiatal Hernia, Irritable Bowel Syndrome, Other ( See Below) Other Gastrointestinal History: thickening c diff x2 Genitourinary History: Reports: Urinary Incontinence CAREER SERVICES OFFICER History: Reports: Dysfunctional Uterine Bleeding, Ectopic , Fibroids, , Spontaneous Musculoskeletal History: Reports: Arthritis, Back Pain, Chronic, Fracture, Fibromyalgia, Neck Pain, Chronic, Osteoarthritis, Other (See Below) Other Musculoskeletal History: polymyalgia miamyalgia. compression fracture Neurological History: Reports: Vertigo, Other (See Below) Other Neuro History: bilateral optic neuropathy inner ear problems Psychiatric History: Reports: Anxiety, Depression Endocrine/Metabolic History: Reports: Hypothyroidism, Obesity/BMI 30+ Hematologic History: Reports: Anemia, Blood Transfusion(s), Iron Deficiency Oncologic (Cancer) History: Reports: Other (See Below) Other Oncologic History: skin cancer Dermatologic History: Reports: Other (See Below) Other Dermatologic History: squamous cell CA- arm ,forehead - Infectious Disease History Infectious Disease History: Reports: C-Difficile, Chicken Pox, Measles, Mumps, Other (See Below) Other Infectious Disease History: states some type of hepatitis - Past Surgical History HEENT Surgical History: Reports: Cataract Surgery, Laser Surgery, Tonsillectomy Other HEENT Surgeries/Procedures: Surgery in right ear. Cardiovascular Surgical History: Reports: Percutaneous Transluminal Angioplasty Other Cardiovascular Surgeries/Procedures: angiogram in the past in [place]. They wouldnt do anything due to "blockage was in a bad spot" GI Surgical History: Reports: Appendectomy, Cholecystectomy, Colonoscopy, EGD, Racquel Fundoplication, Polypectomy, Small Bowel Female Surgical History: Reports: Breast Biopsy, D&C, Hysterectomy, Oophorectomy Endocrine Surgical History: Reports: None Musculoskeletal Surgical History: Reports: Knee Replacement Other Musculoskeletal Surgeries/Procedures:: right Oncologic Surgical History: Reports: Biopsy of Breast Dermatological Surgical History: Reports: Skin Biopsy Social & Family History - Family History Family Medical History: Noncontributory Cardiac: Reports: Afib - Tobacco Use Smoking Status *Q: Never Smoker Years of Tobacco use: 31 Packs/Tins Daily: 0.5 Used Tobacco, but Quit: Yes Month Tobacco Last Used: 32 years ago Second Hand Smoke Exposure: No - Caffeine Use Caffeine Use: Reports: None - Alcohol Use Days Per Week of Alcohol Use: 0 Number of Drinks Per Day: 0 Total Drinks Per Week: 0 - Recreational Drug Use Recreational Drug Use: No ED ROS GENERAL - Review of Systems Review Of Systems: See Below Constitutional: Reports: No Symptoms Respiratory: Reports: No Symptoms Cardiovascular: Reports: No Symptoms GI/Abdominal: Reports: No Symptoms : Reports: No Symptoms Musculoskeletal: Reports: Back Pain ED EXAM,LOWER BACK PAIN/INJURY - Physical Exam Exam: See Below Text/Narrative:: Tenderness lumbar region L4 area Exam Limited By: No Limitations General Appearance: Alert, WD/WN, No Apparent Distress Course - Vital Signs Last Recorded V/S: Last Vital Signs Temp 98.2 F 10/06/17 09:31 Pulse 69 10/06/17 09:31 Resp 16 10/06/17 09:31 BP 141/97 H 10/06/17 09:31 Pulse Ox 89 L 10/06/17 09:31 Departure - Departure Time of Disposition: 10:50 Disposition: Home, Self-Care 01 Condition: Fair Clinical Impression: Compression fracture of L4 lumbar vertebra Qualifiers: Encounter type: initial encounter Fracture type: closed Qualified Code(s): S32.040A - Wedge compression fracture of fourth lumbar vertebra, initial encounter for closed fracture - Discharge Information Referrals: Griffin Agustin MD [Primary Care Provider] - Additional Instructions: The center for pain management at [facility] will contact you with an appointment time for an evaluation for vertebralplasty - Assessment/Plan Plan: Assessment Acuity = acute Site and laterality = compression fraction L4 Etiology = osteoporosis Manifestations = pain Location of injury = Home Lab values = none Plan Discussed case with Dr. Garcia orthopedic surgery, his office will coordinate care for referral for vertebral plasty evaluation, she will continue to use her Ultram as needed for pain control, referral sent to Center for pain management [facility] Patient was in agreement with the plan all questions were answered, they were instructed to return to the emergency department or call for worsening symptoms. This note was dictated using [employer] voice recognition software please call with any questions.
[2017-10-06] MEDS ORDERED: traMADol 50 MG Tab PO ONE (10:58)
== END 2017-10-06 11:09 | disposition home or self-care (01) ==
LOC: JP.ED 08:59
DX: S32.040A Wedge compression fracture of fourth lumbar vertebra, initial encounter for closed fracture (principal); I10 Essential (primary) hypertension; E78.00 Pure hypercholesterolemia, unspecified; K21.9 Gastro-esophageal reflux disease without esophagitis; F32.9 Major depressive disorder, single episode, unspecified; E03.9 Hypothyroidism, unspecified; Z86.2 Personal history of diseases of the blood and blood-forming organs and certain disorders involving the immune mechanism; Z87.891 Personal history of nicotine dependence; Z79.01 Long term (current) use of anticoagulants; Z79.899 Other long term (current) drug therapy; Z99.81 Dependence on supplemental oxygen; Z88.1 Allergy status to other antibiotic agents; Z88.5 Allergy status to narcotic agent; Z88.8 Allergy status to other drugs, medicaments and biological substances; Z88.6 Allergy status to analgesic agent; Z88.2 Allergy status to sulfonamides; X58.XXXA Exposure to other specified factors, initial encounter
CPT/HCPCS: 99283; A9270

== ENCOUNTER 2018-01-28 10:40 | Emergency (ER) | payer MEDICARE, BC ==
[2018-01-28 10:59] VITALS: BP 133/76
[2018-01-28] MEDS ORDERED: Acetaminophen/HYDROcodone 325-5 MG Tab PO ONE (12:05)
--- NOTE | 2018-01-28 13:47 | EDM.PDOC ---
ED HPI GENERAL MEDICAL PROBLEM - General Chief Complaint: Back Pain or Injury Stated Complaint: BACK PAIN, WHEEZING Time Seen by Provider: 01/28/18 11:57 Source of Information: Reports: Patient, Family History Limitations: Reports: No Limitations - History of Present Illness INITIAL COMMENTS - FREE TEXT/NARRATIVE: This lady is here today for complaints of back pain. She has multiple vertebral compression fractures. She does have some tramadol ordered but she didn't take it today. She's afraid to take it because she knows it's an opiate and I guess somebody has told her about opiate crisis and so forth. Family does gave her some Tylenol this morning. Her daughter says she really got worried because she seemed to be wheezing today. Patient doesn't have any complaints of any shortness of breath. She does have a nebulizer at home but did not use that either. Daughter says her tramadol doesn't seem to work despite the fact she didn't give her any. The daughter also did mention that a vp digital marketing social media and crm response to come and see her today because she can't really take care of her at the assisted living place. - Related Data Allergies Allergy/AdvReac Type Severity Reaction Status Date / Time clindamycin Allergy Severe Difficulty Verified 01/28/18 11:13 Breathing ezetimibe [From Zetia] Allergy Severe Difficulty Verified 01/28/18 11:13 Breathing NSAIDS (Non-Steroidal Allergy Severe Airway Verified 01/28/18 11:13 Anti-Inflamma Tightness aspirin Allergy Intermediate Chest Pain Verified 01/28/18 11:13 ciprofloxacin HCl Allergy Rash Verified 01/28/18 11:13 [From Cipro] codeine Allergy Shortness Verified 01/28/18 11:13 of Breath oxycodone [From OxyContin] Allergy Hallucinati Verified 01/28/18 11:13 ons pravastatin Allergy Other Verified 01/28/18 11:13 Sulfa (Sulfonamide Allergy Shortness Verified 01/28/18 11:13 Antibiotics) of Breath amoxicillin trihydrate AdvReac Stomach Verified 01/28/18 11:13 [From Augmentin] Upset atorvastatin calcium AdvReac Muscle Verified 01/28/18 11:13 [From Lipitor] Aches isosorbide mononitrate AdvReac Headache Verified 01/28/18 11:13 [From Imdur] morphine AdvReac Hallucinati Verified 01/28/18 11:13 ons potassium clavulanate AdvReac Stomach Verified 01/28/18 11:13 [From Augmentin] Upset pregabalin [From Lyrica] AdvReac Dizziness Verified 01/28/18 11:13 rosuvastatin calcium AdvReac Other Verified 01/28/18 11:13 [From Crestor] simvastatin [From Zocor] AdvReac Other Verified 01/28/18 11:13 [id number] Reductase AdvReac Muscle Verified 01/28/18 11:13 Inhibitor Aches Home Meds: Home Meds PARoxetine HCl [Paroxetine HCl] 10 mg PO DAILY 08/16/13 [History] Lactobacillus Acidophilus [Probiotic] 1 each PO DAILY 03/05/14 [History] Furosemide [Lasix] 40 mg PO DAILY 08/04/15 [History] Levothyroxine [Synthroid] 112 mcg PO DAILY 08/04/15 [History] Omeprazole Magnesium [Prilosec Otc] 40 mg PO DAILY 08/04/15 [History] Acetaminophen [Tylenol] 650 mg PO Q4H PRN 12/09/15 [History] Cetirizine [ZyrTEC] 10 mg PO DAILY 02/26/16 [History] Loperamide [Imodium AD] 2 mg PO TID PRN 02/28/16 [History] Ferrous Sulfate [Iron] 325 mg PO DAILY 11/18/16 [History] cycloSPORINE [Restasis] 1 drop EYEBOTH BID 11/18/16 [History] Metoprolol Tartrate [Lopressor] 50 mg PO BID 11/26/16 [History] Cyclobenzaprine [Flexeril] 10 mg PO BID PRN 05/12/17 [History] predniSONE [Prednisone] 10 mg PO DAILY 05/12/17 [History] Albuterol [IJD: Albuterol] 2.5 mg NEB Q4H PRN #60 nebule 05/14/17 [Rx] Calcium Carbonate/Vitamin D3 [Calcium 500 + Vit D 400] 1 each PO BID #60 tablet 05/14/17 [Rx] Warfarin [Coumadin] 2.5 mg PO DAILY #0 05/14/17 [Rx] traMADol [Ultram] 50 mg PO DAILY PRN 10/06/17 [History] Arformoterol [Brovana] 2 ml IH BID 01/28/18 [History] Ipratropium-Albuterol 1 dose IH Q4HR 01/28/18 [History] Levothyroxine 112 mcg PO ACBREAKFAST 01/28/18 [History] Sucralfate [Sucralfate] 1 gm PO QID 01/28/18 [History] Past Medical History HEENT History: Reports: Allergic Rhinitis, Cataract, Impaired Vision, Sinusitis Cardiovascular History: Reports: Angina, Arrhythmia, Blood Clots/VTE/DVT, CAD, Heart Murmur, High Cholesterol, Hypertension, [place], SOB on Exertion Respiratory History: Reports: Bronchitis, Recurrent, COPD, PE, Pneumonia, Recurrent, Other (See Below) Other Respiratory History: oxygen dependent @ times. lung nodules Gastrointestinal History: Reports: Chronic Diarrhea, Colon Polyp, Gastritis, GERD, Hemorrhoids, Hepatitis, Hiatal Hernia, Irritable Bowel Syndrome, Other ( See Below) Other Gastrointestinal History: thickening c diff x2 Genitourinary History: Reports: Urinary Incontinence SETTER MACHINE History: Reports: Dysfunctional Uterine Bleeding, Ectopic , Fibroids, , Spontaneous Musculoskeletal History: Reports: Arthritis, Back Pain, Chronic, Fracture, Fibromyalgia, Neck Pain, Chronic, Osteoarthritis, Other (See Below) Other Musculoskeletal History: polymyalgia miamyalgia. compression fracture Neurological History: Reports: Vertigo, Other (See Below) Other Neuro History: bilateral optic neuropathy inner ear problems Psychiatric History: Reports: Anxiety, Depression Endocrine/Metabolic History: Reports: Hypothyroidism, Obesity/BMI 30+ Hematologic History: Reports: Anemia, Blood Transfusion(s), Iron Deficiency Oncologic (Cancer) History: Reports: Other (See Below) Other Oncologic History: skin cancer Dermatologic History: Reports: Other (See Below) Other Dermatologic History: squamous cell CA- arm ,forehead - Infectious Disease History Infectious Disease History: Reports: C-Difficile, Chicken Pox, Measles, Mumps, Other (See Below) Other Infectious Disease History: states some type of hepatitis - Past Surgical History HEENT Surgical History: Reports: Cataract Surgery, Laser Surgery, Tonsillectomy Other HEENT Surgeries/Procedures: Surgery in right ear. Cardiovascular Surgical History: Reports: Percutaneous Transluminal Angioplasty Other Cardiovascular Surgeries/Procedures: angiogram in the past in [place]. They wouldnt do anything due to "blockage was in a bad spot" GI Surgical History: Reports: Appendectomy, Cholecystectomy, Colonoscopy, EGD, Racquel Fundoplication, Polypectomy, Small Bowel Female Surgical History: Reports: Breast Biopsy, D&C, Hysterectomy, Oophorectomy Endocrine Surgical History: Reports: None Musculoskeletal Surgical History: Reports: Knee Replacement Other Musculoskeletal Surgeries/Procedures:: right Oncologic Surgical History: Reports: Biopsy of Breast Dermatological Surgical History: Reports: Skin Biopsy Social & Family History - Family History Family Medical History: Noncontributory Cardiac: Reports: Afib - Tobacco Use Smoking Status *Q: Former Smoker Years of Tobacco use: 31 Packs/Tins Daily: 0.5 Used Tobacco, but Quit: Yes Month Tobacco Last Used: Second Hand Smoke Exposure: No - Caffeine Use Caffeine Use: Reports: None - Alcohol Use Days Per Week of Alcohol Use: 0 Number of Drinks Per Day: 0 Total Drinks Per Week: 0 - Recreational Drug Use Recreational Drug Use: No ED ROS GENERAL - Review of Systems Review Of Systems: See Below Constitutional: Reports: No Symptoms HEENT: Reports: No Symptoms Respiratory: Reports: Wheezing Cardiovascular: Reports: No Symptoms Endocrine: Reports: No Symptoms GI/Abdominal: Reports: No Symptoms : Reports: No Symptoms Musculoskeletal: Reports: Other Skin: Reports: No Symptoms (Back pain as noted) Neurological: Reports: No Symptoms Psychiatric: Reports: No Symptoms ED EXAM,LOWER BACK PAIN/INJURY - Physical Exam Exam: See Below Exam Limited By: No Limitations General Appearance: Alert, Obese, Other (She seems to get a lot of back pain when she moves but when she is just lying supine or on her side she seems fine) Eye Exam: Bilateral Eye: Normal Inspection Head: Atraumatic Respiratory/Chest: Lungs Clear Cardiovascular: Regular Rate, Rhythm GI/Abdominal: Non-Tender Neurological: Alert, Normal Mood/Affect Course - Vital Signs Last Recorded V/S: Last Vital Signs Temp 36.3 C 01/28/18 11:07 Pulse 71 01/28/18 11:07 Resp 18 01/28/18 10:58 BP 133/76 01/28/18 11:07 Pulse Ox 89 L 01/28/18 11:07 - Orders/Labs/Meds Meds: Medications Discontinued Medications Generic Name Dose Route Start Last Admin Trade Name Freq PRN Reason Stop Dose Admin Hydrocodone Bitart/Acetaminophen 1 tab 01/28/18 12:05 01/28/18 12:34 Kimberly 325-5 Mg PO 01/28/18 12:06 1 tab ONETIME ONE Administration - Re-Assessments/Exams Free Text/Narrative Re-Assessment/Exam: 01/28/18 13:47 I gave this lady one tablet of Narco 5/325 and she said that didn't dull pain quite a bit. I discussed that I'll write a prescription for this she can take 1 every 4 hours she can increase that to 2 every 4 hours if needed but they need to be real careful about sedation. They can also add some extra Tylenol to that but limited to either 3 or 4000 mg daily depending on which authorities your trust. Follow package instructions for the Tylenol Departure - Departure Time of Disposition: 13:48 Disposition: Home, Self-Care 01 Condition: Fair Clinical Impression: Vertebral compression fracture - Discharge Information Referrals: Griffin Agustin MD [Primary Care Provider] - Additional Instructions: Instead of the tramadol you may use the Narco 5/325 one tablet every 4-6 hours. If this isn't effective you can increase it to 2 tablets every 4-6 hours. Just be aware that this medication can cause sedation. This medication can cause dependence but he really shouldn't be worried about that just realized that if you do take it on a consistent basis then you may become dependent on it and if he suddenly stop it then he'll have withdrawal symptoms which would be like abdominal cramps and nausea and vomiting. If you would like you may try taking 1 tablet of Narco along with one tablet of regular 325 mg Tylenol. Just limit yourself to no more than 4000 mg of Tylenol per day. Some authorities say limited to just 3000 mg a day. Taking too much Tylenol can cause liver damage. Don't take the tramadol and the Narco at the same time.
== END 2018-01-28 14:25 | disposition home or self-care (01) ==
LOC: JP.ED 10:40
DX: S32.040A Wedge compression fracture of fourth lumbar vertebra, initial encounter for closed fracture (principal); I10 Essential (primary) hypertension; I25.119 Atherosclerotic heart disease of native coronary artery with unspecified angina pectoris; E78.00 Pure hypercholesterolemia, unspecified; J44.9 Chronic obstructive pulmonary disease, unspecified; E03.9 Hypothyroidism, unspecified; Z88.1 Allergy status to other antibiotic agents; Z88.6 Allergy status to analgesic agent; Z88.5 Allergy status to narcotic agent; Z88.8 Allergy status to other drugs, medicaments and biological substances; Z88.2 Allergy status to sulfonamides; Z79.01 Long term (current) use of anticoagulants; Z79.899 Other long term (current) drug therapy; Z87.891 Personal history of nicotine dependence; X58.XXXA Exposure to other specified factors, initial encounter
CPT/HCPCS: 99283; A9270

== ENCOUNTER 2018-01-29 12:47 | Observation (INO) | payer MEDICARE, BC ==
[2018-01-29] MEDS ORDERED: HYDROmorphone 0.5 MG/0.5 ML Syringe IM ONE (13:29)
[2018-01-29] MEDS ORDERED: Cyclobenzaprine 10 MG Tab PO ONE (13:31)
--- NOTE | 2018-01-29 13:32 | EDM.PDOC ---
ED HPI GENERAL MEDICAL PROBLEM - General Chief Complaint: Back Pain or Injury Stated Complaint: MEDICAL Time Seen by Provider: 01/29/18 13:32 Source of Information: Reports: Patient, Family History Limitations: Reports: No Limitations - History of Present Illness INITIAL COMMENTS - FREE TEXT/NARRATIVE: pt was seen yesterday in ER and was started on norco 5/325. This is not getting any control on the pain. The main area of pain seemes to be midthoracic. Onset: Gradual Duration: Hour(s): Location: Reports: Back, Other (pt is very uncomfortable in the midthoracic area. ) Associated Symptoms: Reports: No Other Symptoms Left Back Pain Score (Numeric/FACES): 4 - Related Data Allergies Allergy/AdvReac Type Severity Reaction Status Date / Time clindamycin Allergy Severe Difficulty Verified 01/29/18 12:56 Breathing ezetimibe [From Zetia] Allergy Severe Difficulty Verified 01/29/18 12:56 Breathing NSAIDS (Non-Steroidal Allergy Severe Airway Verified 01/29/18 12:56 Anti-Inflamma Tightness aspirin Allergy Intermediate Chest Pain Verified 01/29/18 12:56 ciprofloxacin HCl Allergy Rash Verified 01/29/18 12:56 [From Cipro] codeine Allergy Shortness Verified 01/29/18 12:56 of Breath oxycodone [From OxyContin] Allergy Hallucinati Verified 01/29/18 12:56 ons pravastatin Allergy Other Verified 01/29/18 12:56 Sulfa (Sulfonamide Allergy Shortness Verified 01/29/18 12:56 Antibiotics) of Breath amoxicillin trihydrate AdvReac Stomach Verified 01/29/18 12:56 [From Augmentin] Upset atorvastatin calcium AdvReac Muscle Verified 01/29/18 12:56 [From Lipitor] Aches isosorbide mononitrate AdvReac Headache Verified 01/29/18 12:56 [From Imdur] morphine AdvReac Hallucinati Verified 01/29/18 12:56 ons potassium clavulanate AdvReac Stomach Verified 01/29/18 12:56 [From Augmentin] Upset pregabalin [From Lyrica] AdvReac Dizziness Verified 01/29/18 12:56 rosuvastatin calcium AdvReac Other Verified 01/29/18 12:56 [From Crestor] simvastatin [From Zocor] AdvReac Other Verified 01/29/18 12:56 [id number]-Hpd Reductase AdvReac Muscle Verified 01/29/18 12:56 Inhibitor Aches Home Meds: Home Meds PARoxetine HCl [Paroxetine HCl] 40 mg PO DAILY 08/16/13 [History] Lactobacillus Acidophilus [Probiotic] 1 each PO DAILY 03/05/14 [History] Furosemide [Lasix] 40 mg PO DAILY 08/04/15 [History] Levothyroxine [Synthroid] 112 mcg PO DAILY 08/04/15 [History] Omeprazole Magnesium [Prilosec Otc] 40 mg PO DAILY 08/04/15 [History] Cetirizine [ZyrTEC] 10 mg PO DAILY 02/26/16 [History] Loperamide [Imodium AD] 2 mg PO TID PRN 02/28/16 [History] cycloSPORINE [Restasis] 1 drop EYEBOTH BID 11/18/16 [History] Metoprolol Tartrate [Lopressor] 50 mg PO BID 11/26/16 [History] Cyclobenzaprine [Flexeril] 5 mg PO BID PRN 05/12/17 [History] predniSONE [Prednisone] 10 mg PO DAILY 05/12/17 [History] Albuterol [IJD: Albuterol] 2.5 mg NEB Q4H PRN #60 nebule 05/14/17 [Rx] Calcium Carbonate/Vitamin D3 [Calcium 500 + Vit D 400] 1 each PO BID #60 tablet 05/14/17 [Rx] Warfarin [Coumadin] 2.5 mg PO DAILY #0 05/14/17 [Rx] Arformoterol [Brovana] 2 ml IH BID 01/28/18 [History] Ipratropium-Albuterol 3 ml NEB Q4HR PRN 01/28/18 [History] Sucralfate [Sucralfate] 1 gm PO QID 01/28/18 [History] *Miralax PO DAILY 01/29/18 [History] *Oyster Shell Calcium+D3 1 tab PO BID 01/29/18 [History] EPINEPHrine [Auvi-Q] 0.3 ml IM ASDIRECTED PRN 01/29/18 [History] Fluticasone Propionate [Flonase Allergy Relief] 2 sprays MILLY DAILY PRN 01/29/18 [History] Hydrocodone/Acetaminophen [Hydrocodon-Acetaminophen 5-325] 1 mg PO ASDIRECTED PRN 01/29/18 [History] Meclizine [Antivert] 25 mg PO TID PRN 01/29/18 [History] Nitroglycerin [Nitrostat] 0.4 mg SL ASDIRECTED PRN 01/29/18 [History] Ondansetron [Zofran ODT] 4 mg PO ASDIRECTED PRN 01/29/18 [History] Past Medical History HEENT History: Reports: Allergic Rhinitis, Cataract, Impaired Vision, Sinusitis Cardiovascular History: Reports: Angina, Arrhythmia, Blood Clots/VTE/DVT, CAD, Heart Murmur, High Cholesterol, Hypertension, NH, SOB on Exertion Respiratory History: Reports: Bronchitis, Recurrent, COPD, PE, Pneumonia, Recurrent, Other (See Below) Other Respiratory History: oxygen dependent @ times. lung nodules Gastrointestinal History: Reports: Chronic Diarrhea, Colon Polyp, Gastritis, GERD, Hemorrhoids, Hepatitis, Hiatal Hernia, Irritable Bowel Syndrome, Other ( See Below) Other Gastrointestinal History: thickening c diff x2 Genitourinary History: Reports: Urinary Incontinence VP SECURITY History: Reports: Dysfunctional Uterine Bleeding, Ectopic , Fibroids, , Spontaneous Musculoskeletal History: Reports: Arthritis, Back Pain, Chronic, Fracture, Fibromyalgia, Neck Pain, Chronic, Osteoarthritis, Other (See Below) Other Musculoskeletal History: polymyalgia miamyalgia. compression fracture Neurological History: Reports: Vertigo, Other (See Below) Other Neuro History: bilateral optic neuropathy inner ear problems Psychiatric History: Reports: Anxiety, Depression Endocrine/Metabolic History: Reports: Hypothyroidism, Obesity/BMI 30+ Hematologic History: Reports: Anemia, Blood Transfusion(s), Iron Deficiency Oncologic (Cancer) History: Reports: Other (See Below) Other Oncologic History: skin cancer Dermatologic History: Reports: Other (See Below) Other Dermatologic History: squamous cell CA- arm ,forehead - Infectious Disease History Infectious Disease History: Reports: Chicken Pox, Measles, Mumps Other Infectious Disease History: states some type of hepatitis - Past Surgical History HEENT Surgical History: Reports: Cataract Surgery, Laser Surgery, Tonsillectomy Other HEENT Surgeries/Procedures: Surgery in right ear. Cardiovascular Surgical History: Reports: Percutaneous Transluminal Angioplasty Other Cardiovascular Surgeries/Procedures: angiogram in the past in [place]. They wouldnt do anything due to "blockage was in a bad spot" GI Surgical History: Reports: Appendectomy, Cholecystectomy, Colonoscopy, EGD, [place] Fundoplication, Polypectomy, Small Bowel Female Surgical History: Reports: Breast Biopsy, D&C, Hysterectomy, Oophorectomy Endocrine Surgical History: Reports: None Musculoskeletal Surgical History: Reports: Knee Replacement Other Musculoskeletal Surgeries/Procedures:: right Oncologic Surgical History: Reports: Biopsy of Breast Dermatological Surgical History: Reports: Skin Biopsy Social & Family History - Family History Family Medical History: Noncontributory Cardiac: Reports: Afib - Tobacco Use Smoking Status *Q: Unknown Ever Smoked Years of Tobacco use: 31 Packs/Tins Daily: 0.5 Used Tobacco, but Quit: Yes Month Tobacco Last Used: Second Hand Smoke Exposure: No - Caffeine Use Caffeine Use: Reports: None - Alcohol Use Days Per Week of Alcohol Use: 0 Number of Drinks Per Day: 0 Total Drinks Per Week: 0 - Recreational Drug Use Recreational Drug Use: No ED ROS GENERAL - Review of Systems Review Of Systems: See Below Constitutional: Reports: No Symptoms HEENT: Reports: No Symptoms Respiratory: Reports: No Symptoms Cardiovascular: Reports: No Symptoms Endocrine: Reports: No Symptoms GI/Abdominal: Reports: No Symptoms : Reports: No Symptoms Musculoskeletal: Reports: Other ( severe pain in midthoracic area. ) Skin: Reports: No Symptoms Neurological: Reports: No Symptoms ED EXAM, UPPER BACK/NECK PAIN - Physical Exam Exam: See Below Text/Narrative:: pt arrived with increased pain in the left post rib cage and in the mid thoracic spine area. Exam Limited By: No Limitations General Appearance: Alert, Moderate Distress, Other (pupils equal and reactive. ) Ears Exam: Normal TMs Nose Exam: Normal Inspection Throat/Mouth Exam: Normal Inspection Head Exam: Atraumatic Neck Exam: Non-Tender Cardiovascular/Respiratory: Regular Rate, Rhythm GI/Abdominal: Soft, Non-Tender (Female) Exam: Deferred Rectal (Female) Exam: Deferred Back Exam: Normal Inspection, Other (pt is tender in the midthoracic area and this comes around to the left lateral rib area. ) Extremities: Normal Inspection Neurologic: Alert, Oriented x 3 Psychiatric: Normal Affect Course - Vital Signs Last Recorded V/S: Last Vital Signs Temp 36.6 C 01/29/18 12:51 Pulse 66 01/29/18 12:51 Resp 14 01/29/18 12:51 BP 161/71 H 01/29/18 12:51 Pulse Ox 96 01/29/18 12:51 - Orders/Labs/Meds Orders: Active Orders 24 hr Category Date Time Status Chest 1V Frontal [CR] Stat Exams 01/29/18 15:23 Ordered Thoracic Spine wo Cont [CT] Stat Exams 01/29/18 13:30 Taken Sodium Chloride 0.9% [Saline Flush] Med 01/29/18 15:32 Active 10 ml FLUSH ASDIRECTED PRN Saline Lock Insert [OM.PC] Routine Oth 01/29/18 15:32 Ordered Medication Orders Sodium Chloride (Saline Flush) 10 ml FLUSH ASDIRECTED PRN PRN Reason: Keep Vein Open Labs: Laboratory Tests 01/29/18 01/29/18 01/29/18 Range/Units 13:43 13:43 13:43 WBC 9.3 (4.5-11.0) K/uL RBC 4.12 (3.30-5.50) M/uL Hgb 11.7 L D (12.0-15.0) g/dL Hct 39.7 (36.0-48.0) % MCV 96 (80-98) fL MCH 28 (27-31) pg MCHC 30 L (32-36) % Plt Count 246 (150-400) K/uL Neut % (Auto) 73 H (36-66) % Lymph % (Auto) 20 L (24-44) % [place] % (Auto) 6 (2-6) % Eos % (Auto) 1 L (2-4) % Baso % (Auto) 0 (0-1) % PT (9.5-12.0) sec INR (0.80-1.20) Sodium 144 (140-148) mmol/L Potassium 4.4 (3.6-5.2) mmol/L Chloride 103 (100-108) mmol/L Carbon Dioxide 37 H (21-32) mmol/L Anion Gap 8.4 (5.0-14.0) mmol/L BUN 16 (7-18) mg/dL Creatinine 0.9 (0.6-1.0) mg/dL Est Cr Clr Drug Dosing 36.59 mL/min Estimated GFR (MDRD) 59 L (>60) Glucose 146 H (74-106) mg/dL Calcium 8.6 (8.5-10.1) mg/dL Total Bilirubin 0.2 (0.2-1.0) mg/dL AST 68 H D (15-37) U/L ALT 65 D (12-78) U/L Alkaline Phosphatase 131 H (46-116) U/L C-Reactive Protein 1.90 H (0.0-0.3) mg/dL Total Protein 6.2 L (6.4-8.2) g/dL Albumin 2.6 L (3.4-5.0) g/dL Globulin 3.6 H (2.3-3.5) g/dL Albumin/Globulin Ratio 0.7 L (1.2-2.2) TSH, Ultra Sensitive 6.331 H (0.358-3.740) uIU/mL Urine Color Urine Appearance Urine pH (4.5-8.0) Ur Specific Helen (1.008-1.030) Urine Protein (NEGATIVE) mg/dL Urine Glucose (UA) (NEGATIVE) mg/dL Urine Ketones (NEGATIVE) mg/dL Urine Occult Blood (NEGATIVE) Urine Nitrite (NEGATIVE) Urine Bilirubin (NEGATIVE) Urine Urobilinogen (NORMAL) mg/dL Ur Leukocyte Esterase (NEGATIVE) Urine RBC (0-5) Urine WBC (0-5) Ur Epithelial Cells Amorphous Sediment Urine Bacteria Urine Mucus 01/29/18 01/29/18 Range/Units 13:46 14:25 WBC (4.5-11.0) K/uL RBC (3.30-5.50) M/uL Hgb (12.0-15.0) g/dL Hct (36.0-48.0) % MCV (80-98) fL MCH (27-31) pg MCHC (32-36) % Plt Count (150-400) K/uL Neut % (Auto) (36-66) % Lymph % (Auto) (24-44) % [place] % (Auto) (2-6) % Eos % (Auto) (2-4) % Baso % (Auto) (0-1) % PT 25.6 H (9.5-12.0) sec INR 2.31 H (0.80-1.20) Sodium (140-148) mmol/L Potassium (3.6-5.2) mmol/L Chloride (100-108) mmol/L Carbon Dioxide (21-32) mmol/L Anion Gap (5.0-14.0) mmol/L BUN (7-18) mg/dL Creatinine (0.6-1.0) mg/dL Est Cr Clr Drug Dosing mL/min Estimated GFR (MDRD) (>60) Glucose (74-106) mg/dL Calcium (8.5-10.1) mg/dL Total Bilirubin (0.2-1.0) mg/dL AST (15-37) U/L ALT (12-78) U/L Alkaline Phosphatase (46-116) U/L C-Reactive Protein (0.0-0.3) mg/dL Total Protein (6.4-8.2) g/dL Albumin (3.4-5.0) g/dL Globulin (2.3-3.5) g/dL Albumin/Globulin Ratio (1.2-2.2) TSH, Ultra Sensitive (0.358-3.740) uIU/mL Urine Color Yellow Urine Appearance Clear Urine pH 7.0 (4.5-8.0) Ur Specific Helen 1.005 L (1.008-1.030) Urine Protein Negative (NEGATIVE) mg/dL Urine Glucose (UA) Normal (NEGATIVE) mg/dL Urine Ketones Negative (NEGATIVE) mg/dL Urine Occult Blood Negative (NEGATIVE) Urine Nitrite Negative (NEGATIVE) Urine Bilirubin Negative (NEGATIVE) Urine Urobilinogen Normal (NORMAL) mg/dL Ur Leukocyte Esterase Negative (NEGATIVE) Urine RBC Not seen (0-5) Urine WBC Not seen (0-5) Ur Epithelial Cells Rare Amorphous Sediment Not seen Urine Bacteria Rare Urine Mucus Not seen Meds: Medications Generic Name Dose Route Start Last Admin Trade Name Freq PRN Reason Stop Dose Admin Sodium Chloride 10 ml 01/29/18 15:32 Saline Flush FLUSH ASDIRECTED PRN Keep Vein Open Discontinued Medications Generic Name Dose Route Start Last Admin Trade Name Freq PRN Reason Stop Dose Admin Cyclobenzaprine HCl 5 mg 01/29/18 13:31 01/29/18 13:57 Flexeril PO 01/29/18 13:32 5 mg ONETIME ONE Administration Hydromorphone HCl 0.5 mg 01/29/18 13:29 01/29/18 13:57 Dilaudid IM 01/29/18 13:30 0.5 mg ONETIME ONE Administration Hydromorphone HCl 0.5 mg 01/29/18 15:32 Dilaudid IVPUSH 01/29/18 15:33 ONETIME ONE - Re-Assessments/Exams Free Text/Narrative Re-Assessment/Exam: 01/29/18 15:30 lab work looks good. Her cat scan of the tspine did not reveal any new compression fractures. Her urine is clear. Departure - Departure Time of Disposition: 15:33 Disposition: Admitted As Inpatient 64 Condition: Fair Clinical Impression: Fracture of lumbar vertebra, compression Compression fracture of thoracic vertebra Qualifiers: Encounter type: initial encounter Fracture type: closed Qualified Code(s): S22.000A - Wedge compression fracture of unspecified thoracic vertebra, initial encounter for closed fracture - Discharge Information Referrals: Griffin Agustin MD [Primary Care Provider] - Forms: ED Department Discharge Care Plan Goals: admit to Dr Carmichael. - My Orders Last 24 Hours: My Active Orders 01/29/18 13:30 Thoracic Spine wo Cont [CT] Stat 01/29/18 15:23 Chest 1V Frontal [CR] Stat 01/29/18 15:32 Sodium Chloride 0.9% [Saline Flush] 10 ml FLUSH ASDIRECTED PRN Saline Lock Insert [OM.PC] Routine - Assessment/Plan Last 24 Hours: My Active Orders 01/29/18 13:30 Thoracic Spine wo Cont [CT] Stat 01/29/18 15:23 Chest 1V Frontal [CR] Stat 01/29/18 15:32 Sodium Chloride 0.9% [Saline Flush] 10 ml FLUSH ASDIRECTED PRN Saline Lock Insert [OM.PC] Routine
[2018-01-29] MEDS ORDERED: Sodium Chloride 0.9% 10 ML Syringe FLUSH PRN (15:32)
[2018-01-29] MEDS ORDERED: HYDROmorphone 0.5 MG/0.5 ML Syringe IVPUSH ONE (15:32)
--- NOTE | 2018-01-29 16:20 | PCM.HP ---
H&P History of Present Illness - General Date of Service: 01/29/18 Admit Problem/Dx: Admission Diagnosis/Problem Admission Diagnosis/Problem Acute back pain Source of Information: Patient, Family, Provider History Limitations: Reports: No Limitations - History of Present Illness Initial Comments - Free Text/Narative: Silvia presents to the emergency room today with persistent acute mid back pain that radiates to her left side. Pain has been present for a little over a week and does not seem to be getting any better. She has tried several different medications and pain continues. She reports severe sharp shooting pains that start in the middle of her back and radiates to the left side as well as to the right on some occasions. The pains are severe enough that it takes her breath away. She reports no injury that preceded onset of the pain. Moving around makes the pain worse but also there are sporadic wavelike episodes of pain without any preceding event. She has had some chills but these are chronic and unchanged. No reports of fevers. No complaints of cough or shortness of breath. She has chronic diarrhea that is stable. No complaints about change in urinary habits. She was seen in the clinic yesterday and they told her she had a new compression fracture at T12. Tramadol and hydrocodone have not provided significant pain relief. Workup in the emergency room today included a CT scan of the thoracic spine. She did have a compression fracture at T12 but this was also visualized back in September suggesting it is not a new fracture. She has significant spasm in the mid back muscles. Given the severity of her pain and limited mobility she is not safe for outpatient management. Left Back Pain Score (Numeric/FACES): 4 - Related Data Allergies/Adverse Reactions: Allergies Allergy/AdvReac Type Severity Reaction Status Date / Time clindamycin Allergy Severe Difficulty Verified 01/29/18 12:56 Breathing ezetimibe [From Zetia] Allergy Severe Difficulty Verified 01/29/18 12:56 Breathing NSAIDS (Non-Steroidal Allergy Severe Airway Verified 01/29/18 12:56 Anti-Inflamma Tightness aspirin Allergy Intermediate Chest Pain Verified 01/29/18 12:56 ciprofloxacin HCl Allergy Rash Verified 01/29/18 12:56 [From Cipro] codeine Allergy Shortness Verified 01/29/18 12:56 of Breath oxycodone [From OxyContin] Allergy Hallucinati Verified 01/29/18 12:56 ons pravastatin Allergy Other Verified 01/29/18 12:56 Sulfa (Sulfonamide Allergy Shortness Verified 01/29/18 12:56 Antibiotics) of Breath amoxicillin trihydrate AdvReac Stomach Verified 01/29/18 12:56 [From Augmentin] Upset atorvastatin calcium AdvReac Muscle Verified 01/29/18 12:56 [From Lipitor] Aches isosorbide mononitrate AdvReac Headache Verified 01/29/18 12:56 [From Imdur] morphine AdvReac Hallucinati Verified 01/29/18 12:56 ons potassium clavulanate AdvReac Stomach Verified 01/29/18 12:56 [From Augmentin] Upset pregabalin [From Lyrica] AdvReac Dizziness Verified 01/29/18 12:56 rosuvastatin calcium AdvReac Other Verified 01/29/18 12:56 [From Crestor] simvastatin [From Zocor] AdvReac Other Verified 01/29/18 12:56 [id number] Reductase AdvReac Muscle Verified 01/29/18 12:56 Inhibitor Aches Home Medications: Home Meds PARoxetine HCl [Paroxetine HCl] 40 mg PO DAILY 08/16/13 [History] Lactobacillus Acidophilus [Probiotic] 1 each PO DAILY 03/05/14 [History] Furosemide [Lasix] 40 mg PO DAILY 08/04/15 [History] Levothyroxine [Synthroid] 112 mcg PO DAILY 08/04/15 [History] Omeprazole Magnesium [Prilosec Otc] 40 mg PO DAILY 08/04/15 [History] Cetirizine [ZyrTEC] 10 mg PO DAILY 02/26/16 [History] Loperamide [Imodium AD] 2 mg PO TID PRN 02/28/16 [History] cycloSPORINE [Restasis] 1 drop EYEBOTH BID 11/18/16 [History] Metoprolol Tartrate [Lopressor] 50 mg PO BID 11/26/16 [History] Cyclobenzaprine [Flexeril] 5 mg PO BID PRN 05/12/17 [History] predniSONE [Prednisone] 10 mg PO DAILY 05/12/17 [History] Albuterol [IJD: Albuterol] 2.5 mg NEB Q4H PRN #60 nebule 05/14/17 [Rx] Calcium Carbonate/Vitamin D3 [Calcium 500 + Vit D 400] 1 each PO BID #60 tablet 05/14/17 [Rx] Arformoterol [Brovana] 2 ml IH BID 01/28/18 [History] Ipratropium-Albuterol 3 ml NEB Q4HR PRN 01/28/18 [History] Sucralfate [Sucralfate] 1 gm PO QID 01/28/18 [History] *Miralax PO DAILY 01/29/18 [History] *Oyster Shell Calcium+D3 1 tab PO BID 01/29/18 [History] EPINEPHrine [Auvi-Q] 0.3 ml IM ASDIRECTED PRN 01/29/18 [History] Fluticasone Propionate [Flonase Allergy Relief] 2 sprays MILLY DAILY PRN 01/29/18 [History] Hydrocodone/Acetaminophen [Hydrocodon-Acetaminophen 5-325] 1 mg PO ASDIRECTED PRN 01/29/18 [History] Meclizine [Antivert] 25 mg PO TID PRN 01/29/18 [History] Nitroglycerin [Nitrostat] 0.4 mg SL ASDIRECTED PRN 01/29/18 [History] Ondansetron [Zofran ODT] 4 mg PO ASDIRECTED PRN 01/29/18 [History] Warfarin [Coumadin] 2.5 mg PO ASDIRECTED 01/29/18 [History] Past Medical History HEENT History: Reports: Allergic Rhinitis, Cataract, Impaired Vision, Sinusitis Cardiovascular History: Reports: Angina, Arrhythmia, Blood Clots/VTE/DVT, CAD, Heart Murmur, High Cholesterol, Hypertension, DE, SOB on Exertion Respiratory History: Reports: Bronchitis, Recurrent, COPD, PE, Pneumonia, Recurrent, Other (See Below) Other Respiratory History: oxygen dependent @ times. lung nodules Gastrointestinal History: Reports: Chronic Diarrhea, Colon Polyp, Gastritis, GERD, Hemorrhoids, Hepatitis, Hiatal Hernia, Irritable Bowel Syndrome, Other ( See Below) Other Gastrointestinal History: thickening c diff x2 Genitourinary History: Reports: Urinary Incontinence MEDICAL CLAIMS REPRESENTATIVE History: Reports: Dysfunctional Uterine Bleeding, Ectopic , Fibroids, , Spontaneous Musculoskeletal History: Reports: Arthritis, Back Pain, Chronic, Fracture, Fibromyalgia, Neck Pain, Chronic, Osteoarthritis, Other (See Below) Other Musculoskeletal History: polymyalgia miamyalgia. compression fracture Neurological History: Reports: Vertigo, Other (See Below) Other Neuro History: bilateral optic neuropathy inner ear problems Psychiatric History: Reports: Anxiety, Depression Endocrine/Metabolic History: Reports: Hypothyroidism, Obesity/BMI 30+ Hematologic History: Reports: Anemia, Blood Transfusion(s), Iron Deficiency Oncologic (Cancer) History: Reports: Other (See Below) Other Oncologic History: skin cancer Dermatologic History: Reports: Other (See Below) Other Dermatologic History: squamous cell CA- arm ,forehead - Infectious Disease History Infectious Disease History: Reports: Chicken Pox, Measles, Mumps Other Infectious Disease History: states some type of hepatitis - Past Surgical History HEENT Surgical History: Reports: Cataract Surgery, Laser Surgery, Tonsillectomy Other HEENT Surgeries/Procedures: Surgery in right ear. Cardiovascular Surgical History: Reports: Percutaneous Transluminal Angioplasty Other Cardiovascular Surgeries/Procedures: angiogram in the past in [place]. They wouldnt do anything due to "blockage was in a bad spot" GI Surgical History: Reports: Appendectomy, Cholecystectomy, Colonoscopy, EGD, [place] Fundoplication, Polypectomy, Small Bowel Female Surgical History: Reports: Breast Biopsy, D&C, Hysterectomy, Oophorectomy Endocrine Surgical History: Reports: None Musculoskeletal Surgical History: Reports: Knee Replacement Other Musculoskeletal Surgeries/Procedures:: right Oncologic Surgical History: Reports: Biopsy of Breast Dermatological Surgical History: Reports: Skin Biopsy Social & Family History - Family History Family Medical History: Noncontributory Cardiac: Reports: Afib - Tobacco Use Smoking Status *Q: Unknown Ever Smoked Years of Tobacco use: 31 Packs/Tins Daily: 0.5 Used Tobacco, but Quit: Yes Month Tobacco Last Used: Second Hand Smoke Exposure: No - Caffeine Use Caffeine Use: Reports: None - Alcohol Use Days Per Week of Alcohol Use: 0 Number of Drinks Per Day: 0 Total Drinks Per Week: 0 - Recreational Drug Use Recreational Drug Use: No H&P Review of Systems - Review of Systems: Review Of Systems: See Below Free Text/Narrative: A complete 12 point review of systems was obtained. Pertinent positives and negatives are noted in the history of present illness. All other systems were reviewed and were negative except as noted. Exam - Exam Exam: See Below - Vital Signs Vital Signs: Last Vital Signs Temp 36.6 C 01/29/18 12:51 Pulse 66 01/29/18 12:51 Resp 14 01/29/18 12:51 BP 161/71 H 01/29/18 12:51 Pulse Ox 96 01/29/18 12:51 Weight: 84.822 kg - Exam Quality Assessment: No: Supplemental Oxygen General: Alert, Oriented, Cooperative. No: Mild Distress HEENT: Conjunctiva Clear, Mucosa Moist & [employer]. No: Scleral Icterus Neck: Supple, Trachea Midline. No: Lymphadenopathy Lungs: Clear to Auscultation, Normal Respiratory Effort Cardiovascular: Regular Rate, Regular Rhythm GI/Abdominal Exam: Normal Bowel Sounds, Soft, Non-Tender, No Distention Back Exam: Normal Inspection, Muscle Spasm (Left mid back and left lateral back) , Paraspinal Tenderness (Left mid back). No: Full Range of Motion Extremities: No Pedal Edema. No: Increased Warmth Skin: Warm, Dry, Intact Neuro Extensive - Mental Status: Alert, Oriented x3, Nl Response to Commands Neuro Extensive - Motor, Sensory, Reflexes: CN II-XII Intact. No: Dysarthria, Abnormal Motor, Tremor Psychiatric: Alert, Normal Affect - Patient Data Lab Results Last 24 hrs: Laboratory Results - last 24 hr 01/29/18 01/29/18 01/29/18 Range/Units 13:43 13:43 13:43 WBC 9.3 (4.5-11.0) K/uL RBC 4.12 (3.30-5.50) M/uL Hgb 11.7 L D (12.0-15.0) g/dL Hct 39.7 (36.0-48.0) % MCV 96 (80-98) fL MCH 28 (27-31) pg MCHC 30 L (32-36) % Plt Count 246 (150-400) K/uL Neut % (Auto) 73 H (36-66) % Lymph % (Auto) 20 L (24-44) % [place] % (Auto) 6 (2-6) % Eos % (Auto) 1 L (2-4) % Baso % (Auto) 0 (0-1) % PT (9.5-12.0) sec INR (0.80-1.20) Sodium 144 (140-148) mmol/L Potassium 4.4 (3.6-5.2) mmol/L Chloride 103 (100-108) mmol/L Carbon Dioxide 37 H (21-32) mmol/L Anion Gap 8.4 (5.0-14.0) mmol/L BUN 16 (7-18) mg/dL Creatinine 0.9 (0.6-1.0) mg/dL Est Cr Clr Drug Dosing 36.59 mL/min Estimated GFR (MDRD) 59 L (>60) Glucose 146 H (74-106) mg/dL Calcium 8.6 (8.5-10.1) mg/dL Total Bilirubin 0.2 (0.2-1.0) mg/dL AST 68 H D (15-37) U/L ALT 65 D (12-78) U/L Alkaline Phosphatase 131 H (46-116) U/L C-Reactive Protein 1.90 H (0.0-0.3) mg/dL Total Protein 6.2 L (6.4-8.2) g/dL Albumin 2.6 L (3.4-5.0) g/dL Globulin 3.6 H (2.3-3.5) g/dL Albumin/Globulin Ratio 0.7 L (1.2-2.2) TSH, Ultra Sensitive 6.331 H (0.358-3.740) uIU/mL Urine Color Urine Appearance Urine pH (4.5-8.0) Ur Specific [place] (1.008-1.030) Urine Protein (NEGATIVE) mg/dL Urine Glucose (UA) (NEGATIVE) mg/dL Urine Ketones (NEGATIVE) mg/dL Urine Occult Blood (NEGATIVE) Urine Nitrite (NEGATIVE) Urine Bilirubin (NEGATIVE) Urine Urobilinogen (NORMAL) mg/dL Ur Leukocyte Esterase (NEGATIVE) Urine RBC (0-5) Urine WBC (0-5) Ur Epithelial Cells Amorphous Sediment Urine Bacteria Urine Mucus 01/29/18 01/29/18 Range/Units 13:46 14:25 WBC (4.5-11.0) K/uL RBC (3.30-5.50) M/uL Hgb (12.0-15.0) g/dL Hct (36.0-48.0) % MCV (80-98) fL MCH (27-31) pg MCHC (32-36) % Plt Count (150-400) K/uL Neut % (Auto) (36-66) % Lymph % (Auto) (24-44) % [place] % (Auto) (2-6) % Eos % (Auto) (2-4) % Baso % (Auto) (0-1) % PT 25.6 H (9.5-12.0) sec INR 2.31 H (0.80-1.20) Sodium (140-148) mmol/L Potassium (3.6-5.2) mmol/L Chloride (100-108) mmol/L Carbon Dioxide (21-32) mmol/L Anion Gap (5.0-14.0) mmol/L BUN (7-18) mg/dL Creatinine (0.6-1.0) mg/dL Est Cr Clr Drug Dosing mL/min Estimated GFR (MDRD) (>60) Glucose (74-106) mg/dL Calcium (8.5-10.1) mg/dL Total Bilirubin (0.2-1.0) mg/dL AST (15-37) U/L ALT (12-78) U/L Alkaline Phosphatase (46-116) U/L C-Reactive Protein (0.0-0.3) mg/dL Total Protein (6.4-8.2) g/dL Albumin (3.4-5.0) g/dL Globulin (2.3-3.5) g/dL Albumin/Globulin Ratio (1.2-2.2) TSH, Ultra Sensitive (0.358-3.740) uIU/mL Urine Color Yellow Urine Appearance Clear Urine pH 7.0 (4.5-8.0) Ur Specific [place] 1.005 L (1.008-1.030) Urine Protein Negative (NEGATIVE) mg/dL Urine Glucose (UA) Normal (NEGATIVE) mg/dL Urine Ketones Negative (NEGATIVE) mg/dL Urine Occult Blood Negative (NEGATIVE) Urine Nitrite Negative (NEGATIVE) Urine Bilirubin Negative (NEGATIVE) Urine Urobilinogen Normal (NORMAL) mg/dL Ur Leukocyte Esterase Negative (NEGATIVE) Urine RBC Not seen (0-5) Urine WBC Not seen (0-5) Ur Epithelial Cells Rare Amorphous Sediment Not seen Urine Bacteria Rare Urine Mucus Not seen Result Diagrams: 01/29/18 13:43 01/29/18 13:43 Imaging Impressions Last 24 hrs: CT scan of the thoracic spine - images personally reviewed and radiologist interpretation noted - old compression fractures involving T7, T8 and T12. No new fractures. Chest x-ray - images also personally reviewed - lungs are clear with no obvious mass, infiltrate or effusion. *Q Meaningful Use (ADM) - VTE *Q VTE Criteria *Q: - VTE Risk Assess *Q Each Risk Factor Represents 1 Point: Obesity ( BMI > 25 kg/m2), Abnormal Pulmonary Function (COPD) Total Score 1 Point Risk Factors: 2 Each Risk Factor Represents 2 Points: None Total Score 2 Point Risk Factors: 0 Each Risk Factor Represents 3 Points: Age 75 Years or Greater, History of DVT/PE Total Score 3 Point Risk Factors: 6 Each Risk Factor Represents 5 Points: None Total Score 5 Point Risk Factors: 0 Venous Thromboembolism Risk Factor Score *Q: 8 - Stroke *Q Stroke Criteria *Q: - AMI *Q AMI Criteria *Q: - Problem List (1) Acute back pain SNOMED Code(s): 258090086 ICD Code: M54.9 - DORSALGIA, UNSPECIFIED Status: Acute Current Visit: Yes Qualifiers: Back pain location: thoracic back pain Back pain laterality: left Qualified Code(s): M54.6 - Pain in thoracic spine (2) Compression fx, thoracic spine SNOMED Code(s): 113852888 ICD Code: S22.000A - WEDGE COMPRESSION FRACTURE OF UNSP THORACIC VERTEBRA, INIT Status: Chronic Current Visit: Yes Qualifiers: Encounter type: initial encounter Fracture type: closed Qualified Code(s) : S22.000A - Wedge compression fracture of unspecified thoracic vertebra, initial encounter for closed fracture (3) Hx of pulmonary embolus SNOMED Code(s): 224407328 ICD Code: Z86.711 - PERSONAL HISTORY OF PULMONARY EMBOLISM Status: Chronic Current Visit: Yes (4) PMR (polymyalgia rheumatica) SNOMED Code(s): 47536507 ICD Code: M35.3 - POLYMYALGIA RHEUMATICA Status: Chronic Current Visit: Yes Problem List Initiated/Reviewed/Updated: Yes Orders Last 24hrs: Active Orders 24 hr Category Date Time Status Patient Status Manage Transfer [TRANSFER] Routine ADT 01/29/18 16:03 Ordered Chest 1V Frontal [CR] Stat Exams 01/29/18 15:23 Taken Thoracic Spine wo Cont [CT] Stat Exams 01/29/18 13:30 Taken Sodium Chloride 0.9% [Saline Flush] Med 03/03/18 15:32 Active 10 ml FLUSH ASDIRECTED PRN Saline Lock Insert [OM.PC] Routine Oth 01/29/18 15:32 Ordered Resuscitation Status Routine Resus Stat 01/29/18 16:06 Ordered Medication Orders Sodium Chloride (Saline Flush) 10 ml FLUSH ASDIRECTED PRN PRN Reason: Keep Vein Open Last Admin: 01/29/18 15:52 Dose: 10 ml Assessment/Plan Comment:: ASSESSMENT AND PLAN - Acute thoracic back pain - no new compression fractures identified on CT scan today. Examination consistent with significant muscle spasm involving the paraspinal muscles on the left but some on the right as well. Not safe for outpatient management given the severity of her pain and high risk for falls. Significant allergies to multiple pain medications. -Scheduled extra strength Tylenol -Tramadol as needed for moderate pain -Muscle relaxer as needed -Heating pad -Aspercreme -Physical therapy when available History of DVT and PE - chronically anticoagulated. No symptoms of new clot at this time. INR therapeutic. -Continue warfarin -Daily INR Polymyalgia rheumatica - history of, chronically on prednisone. No change in symptoms to suggest exacerbation of this condition. -Continue prednisone Maintenance issues - - DVT prophylaxis - warfarin - GI prophylaxis - PPI - Nutrition - regular - Alar[place] catheter - not indicated CODE STATUS - DNR/DNI Admission justification - patient will be referred observation status for pain control and some physical therapy Disposition - anticipate discharge back to the assisted living versus possibly the intermediate after the hospital stay. Primary care physician - Dr. Nikole Carmichael M.D.
[2018-01-29] MEDS ORDERED: Ondansetron 4 MG Tab.DIS PO PRN (16:50)
[2018-01-29] MEDS ORDERED: Warfarin 2.5 MG Tab PO ONE (16:50)
[2018-01-29] MEDS ORDERED: Trolamine Salicylate/Aloe Vera 10% Crm 85 GM Tube TOP PRN (16:50)
[2018-01-29] MEDS ORDERED: HYDROmorphone 0.5 MG/0.5 ML Syringe IVPUSH PRN (16:50)
[2018-01-29] MEDS ORDERED: MECLIZINE 25 MG PO PRN (16:50)
[2018-01-29] MEDS ORDERED: Loperamide 2 MG Cap PO PRN (16:50)
[2018-01-29] MEDS: Acetaminophen 500 MG Tab PO SCH ×2 (17:30→21:35)
[2018-01-29] MEDS: traMADol 50 MG Tab PO PRN ×2 (17:30→21:36)
[2018-01-29] MEDS ORDERED: WARFARIN 5 MG PO ONE (18:00)
[2018-01-29] MEDS: CYCLOSPORINE EYEBOTH SCH (21:34)
[2018-01-29] MEDS: METOPROLOL TARTRATE 50 MG PO SCH (21:34)
[2018-01-29] MEDS: tiZANidine 2 MG Tab PO PRN (21:35)
[2018-01-29] MEDS: ALBUTEROL NEB PRN (21:37)
[2018-01-30] MEDS: traMADol 50 MG Tab PO PRN ×5 (03:19→22:43)
[2018-01-30] MEDS: tiZANidine 2 MG Tab PO PRN ×4 (03:19→22:43)
[2018-01-30] MEDS: Magnesium Hydroxide 400 MG/5 ML Susp 30 ML Cup PO PRN ×2 (03:31→10:14)
[2018-01-30] MEDS: ALBUTEROL NEB PRN ×2 (06:38→09:50)
[2018-01-30] MEDS ORDERED: Fluticasone Propionate Nasal Spray 16 GM Bottle NASBOTH PRN (07:15)
[2018-01-30] MEDS: OMEPRAZOLE 40 MG PO SCH (08:06)
[2018-01-30] MEDS ORDERED: PREDNISONE 5 MG PO SCH ×2 (09:00→10:00)
[2018-01-30] MEDS: Acetaminophen 500 MG Tab PO SCH ×4 (09:44→22:44)
[2018-01-30] MEDS: CETIRIZINE 10 MG PO SCH (09:49)
[2018-01-30] MEDS: Lactobacillus Rhamnosus GG (Probiotic) Cap PO SCH (09:49)
[2018-01-30] MEDS: CYCLOSPORINE EYEBOTH SCH ×2 (09:50→20:56)
[2018-01-30] MEDS: METOPROLOL TARTRATE 50 MG PO SCH ×2 (09:52→20:56)
[2018-01-30] MEDS: Arformoterol 15 MCG/2 ML Neb Soln INH SCH ×2 (09:53→20:55)
[2018-01-30] MEDS: PREDNISONE 5 MG PO SCH (11:17)
[2018-01-30] MEDS ORDERED: WARFARIN 5 MG PO SCH (13:00)
--- NOTE | 2018-01-30 13:42 | PCM.PN ---
- General Info Date of Service: 01/30/18 Functional Status: Reports: Pain Controlled, Tolerating Diet - Review of Systems General: Reports: Weakness Musculoskeletal: Reports: Back Pain Systems Review Comment:: No acute events overnight. Back pain is a fair amount better today and she is moving better. Still having moderate mid back with the left side hurting more than the right. Muscle relaxer provided significant improvement in her pain. She feels better but not quite safe for outpatient management at this time. - Patient Data Vitals - Most Recent: Last Vital Signs Temp 36.6 C 01/30/18 07:00 Pulse 68 01/30/18 07:00 Resp 16 01/30/18 07:00 BP 132/60 01/30/18 07:00 Pulse Ox 95 01/30/18 07:00 Weight - Most Recent: 90.582 kg I&O - Last 24 Hours: Intake & Output 01/29/18 01/30/18 01/30/18 22:59 06:59 14:59 Intake Total 90 Balance 90 Lab Results Last 24 Hours: Laboratory Results - last 24 hr 01/30/18 01/30/18 Range/Units 05:20 05:20 WBC 8.2 (4.5-11.0) K/uL RBC 3.81 (3.30-5.50) M/uL Hgb 10.9 L (12.0-15.0) g/dL Hct 37.0 (36.0-48.0) % MCV 97 (80-98) fL MCH 29 (27-31) pg MCHC 30 L (32-36) % Plt Count 227 (150-400) K/uL PT 20.8 H (9.5-12.0) sec INR 1.89 H (0.80-1.20) Med Orders - Current: Current Medications Acetaminophen (Tylenol Extra Strength) 1,000 mg PO TID [facility] Last Admin: 01/30/18 09:44 Dose: 1,000 mg Albuterol (Proventil Neb Soln) 2.5 mg NEB Q4H PRN PRN Reason: Dyspnea Last Admin: 01/30/18 06:38 Dose: 2.5 mg Arformoterol Tartrate (Brovana) 15 mcg INH BIDRT [facility] Last Admin: 01/30/18 09:53 Dose: 15 mcg Fluticasone Propionate (Flonase) 0 gm NASBOTH DAILY PRN PRN Reason: NASAL CONGESTION Hydromorphone HCl (Dilaudid) 0.5 mg IVPUSH Q2H PRN PRN Reason: Pain (severe 7-10) Lactobacillus Rhamnosus (Culturelle) 1 cap PO DAILY [facility] Last Admin: 01/30/18 09:49 Dose: 1 cap Loperamide HCl (Imodium) 2 mg PO TID PRN PRN Reason: Diarrhea Magnesium Hydroxide (Milk Of Magnesia) 30 ml PO BID PRN PRN Reason: Constipation Last Admin: 01/30/18 10:14 Dose: 30 ml (Cetirizine [Zyrtec] (10 Mg)*Pt Own Med) 10 mg PO DAILY [facility] Last Admin: 01/30/18 09:49 Dose: 10 mg Cyclosporine [ (Restasis] Pt Own) 1 drop EYEBOTH BID [facility] Last Admin: 01/30/18 09:50 Dose: 1 drop (Furosemide [Lasix] (40 Mg)*Pt Own Med*) 40 mg PO DAILY [facility] Last Admin: 01/30/18 09:51 Dose: 40 mg (Levothyroxine [ Synthroid] 112 Mcg)* Pt Own Med* 112 mcg PO DAILY@0730 [facility] Last Admin: 01/30/18 08:05 Dose: 112 mcg (Meclizine [Antivert (] 25 Mg)*Pt Own Med*) 25 mg PO TID PRN PRN Reason: Muscle Spasm (Metoprolol Tartrate [Lopressor] 50 Mg)* Pt Own Med* 50 mg PO BID [facility] Last Admin: 01/30/18 09:52 Dose: 50 mg (Paroxetine Hcl [ Paroxetine Hcl] 40 Mg)*Pt Own Med* 40 mg PO DAILY [facility] Last Admin: 01/30/18 10:11 Dose: 40 mg (Sucralfate [ Sucralfate] 1 Gm)*Pt Own Med* 1 gm PO QIDACANDBED [facility] Last Admin: 01/30/18 11:17 Dose: 1 gm Ondansetron HCl (Zofran Odt) 4 mg PO Q6H PRN PRN Reason: Nausea Omeprazole 40 Mg (Caps *Pt Own Med*) 40 each PO DAILY@0730 [facility] Last Admin: 01/30/18 08:06 Dose: 40 each Prednisone (Prednisone) 5 mg PO DAILY [facility] Last Admin: 01/30/18 11:17 Dose: 5 mg Sodium Chloride (Saline Flush) 10 ml FLUSH ASDIRECTED PRN PRN Reason: Keep Vein Open Last Admin: 01/29/18 15:52 Dose: 10 ml Tizanidine HCl (Zanaflex) 2 mg PO Q6H PRN PRN Reason: Muscle Spasm Last Admin: 01/30/18 10:14 Dose: 2 mg Tramadol HCl (Ultram) 50 mg PO Q4H PRN PRN Reason: Pain Last Admin: 01/30/18 10:14 Dose: 50 mg Trolamine Salicylate (Aspercreme 10%) 0 gm TOP Q1H PRN PRN Reason: back pain Warfarin Sodium (Coumadin) 0 mg PO DAILY@1300 [facility] Discontinued Medications Cyclobenzaprine HCl (Flexeril) 5 mg PO ONETIME ONE Stop: 01/29/18 13:32 Last Admin: 01/29/18 13:57 Dose: 5 mg Hydromorphone HCl (Dilaudid) 0.5 mg IM ONETIME ONE Stop: 01/29/18 13:30 Last Admin: 01/29/18 13:57 Dose: 0.5 mg Hydromorphone HCl (Dilaudid) 0.5 mg IVPUSH ONETIME ONE Stop: 01/29/18 15:33 Last Admin: 01/29/18 15:52 Dose: 0.5 mg Prednisone 5 Mg Tabs (*Pt Own Med*) 10 mg PO DAILY [facility] Prednisone (Prednisone) 10 mg PO DAILY [facility] Prednisone (Prednisone) 0 mg PO DAILY [facility] Warfarin Sodium (Coumadin) 2.5 mg PO ONETIME ONE Stop: 01/29/18 16:51 Last Admin: 01/29/18 17:59 Dose: Not Given Warfarin Sodium (Coumadin) 5 mg PO DAILY@1300 [facility] Stop: 01/30/18 13:01 Warfarin Sodium (Coumadin) 0 mg PO ONETIME ONE Stop: 01/29/18 18:01 Last Admin: 01/29/18 17:58 Dose: 2.5 mg - Exam Quality Assessment: Supplemental Oxygen General: Alert, Oriented, Cooperative, No Acute Distress Neck: Supple Lungs: Normal Respiratory Effort GI/Abdominal Exam: Soft, No Distention Back Exam: Muscle Spasm (Both left and right paraspinal muscles in the mid thoracic region). No: Full Range of Motion Extremities: Pedal Edema Psy/Mental Status: Alert, Normal Affect - Problem List & Annotations (1) Acute back pain SNOMED Code(s): 701929703 Code(s): M54.9 - DORSALGIA, UNSPECIFIED Status: Acute Current Visit: Yes Qualifiers: Back pain location: thoracic back pain Back pain laterality: left Qualified Code(s): M54.6 - Pain in thoracic spine (2) Compression fx, thoracic spine SNOMED Code(s): 504214830 Code(s): S22.000A - WEDGE COMPRESSION FRACTURE OF UNSP THORACIC VERTEBRA, INIT Status: Chronic Current Visit: Yes Qualifiers: Encounter type: initial encounter Fracture type: closed Qualified Code(s) : S22.000A - Wedge compression fracture of unspecified thoracic vertebra, initial encounter for closed fracture (3) Hx of pulmonary embolus SNOMED Code(s): 944822507 Code(s): Z86.711 - PERSONAL HISTORY OF PULMONARY EMBOLISM Status: Chronic Current Visit: Yes (4) PMR (polymyalgia rheumatica) SNOMED Code(s): 05301254 Code(s): M35.3 - POLYMYALGIA RHEUMATICA Status: Chronic Current Visit: Yes - Problem List Review Problem List Initiated/Reviewed/Updated: Yes - My Orders Last 24 Hours: My Active Orders 01/29/18 16:06 Resuscitation Status Routine 01/29/18 16:50 Patient Status [ADT] Routine Bedrest Bathroom Privileges [RC] ASDIRECTED Cooling Warming Measures [RC] ASDIRECTED Notify Provider Vital Signs [RC] ASDIRECTED Oxygen Therapy [RC] PRN Up With Assistance [RC] ASDIRECTED VTE/DVT Education [RC] Per Unit Routine Vital Signs [RC] Q4H PT Evaluation and Treatment [CONS] Routine Acetaminophen [Tylenol Extra Strength] 1,000 mg PO TID HYDROmorphone [Dilaudid] 0.5 mg IVPUSH Q2H PRN Trolamine Salicylate/Aloe Vera [Aspercreme 10%] 0 gm TOP Q1H PRN tiZANidine [Zanaflex] 2 mg PO Q6H PRN traMADol [Ultram] 50 mg PO Q4H PRN Heat Therapy [OM.PC] Routine 01/29/18 Dinner Regular Diet [DIET] 01/30/18 03:16 Magnesium Hydroxide [Milk of Magnesia] 30 ml PO BID PRN 01/30/18 10:30 predniSONE 5 mg PO DAILY 01/31/18 05:00 INR,PT,PROTHROMBIN TIME [COAG] Timed 01/31/18 13:00 Warfarin [Coumadin] 0 mg PO DAILY@1300 - Plan Plan:: ASSESSMENT AND PLAN - Acute thoracic back pain - no new compression fractures identified on CT scan. Better today but still having a fair amount of pain and does not feel safe at home But thinks she should be ready tomorrow if she has ongoing improvement. Significant allergies to multiple pain medications. -Scheduled extra strength Tylenol -Tramadol as needed for moderate pain -Muscle relaxer as needed -Heating pad -Aspercreme -Physical therapy when available History of DVT and PE - chronically anticoagulated. No symptoms of new clot at this time. INR slightly sub-therapeutic. -Continue warfarin -Daily INR Polymyalgia rheumatica - history of, chronically on prednisone. No change in symptoms to suggest exacerbation of this condition. -Continue prednisone Maintenance issues - - DVT prophylaxis - warfarin - GI prophylaxis - PPI - Nutrition - regular - Alarcon catheter - not indicated CODE STATUS - DNR/DNI Admission justification - patient will be referred observation status for pain control and some physical therapy Disposition - anticipate discharge back home with home care versus possibly to assisted living versus possibly the [facility] after the hospital stay. Primary care physician - Dr. Nikole Carmichael M.D.
[2018-01-30] MEDS: predniSONE 10 MG Tab PO SCH ×2 (14:42→14:43)
[2018-01-31] MEDS: traMADol 50 MG Tab PO PRN ×3 (05:19→20:11)
[2018-01-31] MEDS: tiZANidine 2 MG Tab PO PRN ×2 (05:19→20:11)
[2018-01-31] MEDS: ALBUTEROL NEB PRN (05:25)
[2018-01-31] MEDS: Arformoterol 15 MCG/2 ML Neb Soln INH SCH ×2 (08:41→20:08)
[2018-01-31] MEDS: OMEPRAZOLE 40 MG PO SCH (08:44)
[2018-01-31] MEDS: Lactobacillus Rhamnosus GG (Probiotic) Cap PO SCH (08:45)
[2018-01-31] MEDS: METOPROLOL TARTRATE 50 MG PO SCH ×2 (08:46→20:08)
[2018-01-31] MEDS: Acetaminophen 500 MG Tab PO SCH ×3 (08:47→20:08)
[2018-01-31] MEDS: PREDNISONE 5 MG PO SCH (08:47)
[2018-01-31] MEDS: CETIRIZINE 10 MG PO SCH (08:48)
[2018-01-31] MEDS: CYCLOSPORINE EYEBOTH SCH ×2 (08:48→20:08)
[2018-01-31] MEDS ORDERED: Calcium Carbonate 500 MG Tab.Chew PO PRN (09:29)
--- NOTE | 2018-01-31 10:14 | CR ---
CHEST: AP portable CLINICAL HISTORY:Chest pain COMPARISON:CT chest May 18, 2017 FINDINGS: There is a suboptimal inspiration. This exaggerates basilar lung markings. There is chroni c elevation of the right hemidiaphragm. No infiltrate effusion or pneumothorax is seen.. IMPRESSION: Limited portable chest No acute pulmonary process
[2018-01-31] MEDS ORDERED: WARFARIN 5 MG PO SCH (13:00)
--- NOTE | 2018-01-31 14:14 | PCM.DCSUM1 ---
Discharge Summary - Hospital Course Brief History: Ms. Khan is an 87-year-old woman who was admitted to observation status through the emergency department for management of acute on chronic back pain. - Discharge Data Discharge Date: 01/31/18 Discharge Disposition: Home, Self-Care 01 Condition: Fair - Discharge Diagnosis/Problem(s) (1) Spasm of paraspinal muscle SNOMED Code(s): 03793818 ICD Code: M62.830 - MUSCLE SPASM OF BACK Status: Acute Current Visit: Yes (2) Fracture of lumbar vertebra, compression SNOMED Code(s): 406433489 ICD Code: S32.000A - WEDGE COMPRESSION FRACTURE OF UNSP LUMBAR VERTEBRA, INIT Status: Acute Current Visit: Yes (3) Compression fx, thoracic spine SNOMED Code(s): 001639657 ICD Code: S22.000A - WEDGE COMPRESSION FRACTURE OF UNSP THORACIC VERTEBRA, INIT Status: Chronic Current Visit: Yes Qualifiers: Encounter type: initial encounter Fracture type: closed Qualified Code(s) : S22.000A - Wedge compression fracture of unspecified thoracic vertebra, initial encounter for closed fracture - Patient Summary/Data Consults: Consultations 01/29/18 16:50 PT Evaluation and Treatment [CONS] Routine Please Evaluate and Treat. PT Reason for Consult: Other (Type Response) Special Instructions: Back pain This query below is only for informational purposes and is not editable. Hospital Course: Silvia presented to the emergency room on the day of admission with persistent acute mid back pain that radiates to her left side. Pain had been present for a little over a week and did not seem to be getting any better. She had tried several different medications without significant relief or improvement in symptoms. She reports severe sharp shooting pains that start in the middle of her back and radiates to the left side as well as to the right on some occasions. The pains are severe enough that it takes her breath away. She reports no injury that preceded onset of the pain. Moving around makes the pain worse but also there are sporadic wavelike episodes of pain without any preceding event. She has had some chills but these are chronic and unchanged. No reports of fevers. No complaints of cough or shortness of breath. She has chronic diarrhea that is stable. No complaints about change in urinary habits. She was seen in the clinic on the day prior to admission and they told her she had a new compression fracture at T12. Tramadol and hydrocodone have not provided significant pain relief. Workup in the emergency room on the day of admission included a CT scan of the thoracic spine. She did have a compression fracture at T12 but this was also visualized back in September suggesting it is not a new fracture. She has significant spasm in the mid back muscles. Given the severity of her pain and limited mobility she was not felt to be safe for outpatient management. On admission she was treated with pain medication as well as muscle relaxants and did note some improvement in symptoms throughout her hospital stay. She was seen by physical therapy and outpatient physical therapy will be ordered for after discharge. We discussed possible snf admission which the patient refused and requested discharge back to home. Activity will be as tolerated and she will resume her usual diet. Follow-up appointment will be scheduled with her primary care provider within one week and physical therapy will be scheduled as well. - Patient Instructions Diet: Usual Diet as Tolerated Activity: As Tolerated Other/Special Instructions: Outpatient physical therapy. Schedule follow-up appointment with Dr. Agustin within one week. - Discharge Plan Prescriptions/Med Rec: tiZANidine [Zanaflex] 2 mg PO Q6H PRN #20 tablet PRN Reason: Muscle Spasm Home Medications: Home Meds PARoxetine HCl [Paroxetine HCl] 40 mg PO DAILY 08/16/13 [History] Lactobacillus Acidophilus [Probiotic] 1 each PO DAILY 03/05/14 [History] Furosemide [Lasix] 40 mg PO DAILY 08/04/15 [History] Levothyroxine [Synthroid] 112 mcg PO DAILY 08/04/15 [History] Omeprazole Magnesium [Prilosec Otc] 40 mg PO DAILY 08/04/15 [History] Cetirizine [ZyrTEC] 10 mg PO DAILY 02/26/16 [History] Loperamide [Imodium AD] 2 mg PO TID PRN 02/28/16 [History] cycloSPORINE [Restasis] 1 drop EYEBOTH BID 11/18/16 [History] Metoprolol Tartrate [Lopressor] 50 mg PO BID 11/26/16 [History] Cyclobenzaprine [Flexeril] 5 mg PO BID PRN 05/12/17 [History] predniSONE [Prednisone] 5 mg PO DAILY 05/12/17 [History] Albuterol [IJD: Albuterol] 2.5 mg NEB Q4H PRN #60 nebule 05/14/17 [Rx] Calcium Carbonate/Vitamin D3 [Calcium 500 + Vit D 400] 1 each PO BID #60 tablet 05/14/17 [Rx] Arformoterol [Brovana] 2 ml IH BID 01/28/18 [History] Ipratropium-Albuterol 3 ml NEB Q4HR PRN 01/28/18 [History] Sucralfate 1 gm PO QID 01/28/18 [History] *Miralax PO DAILY 01/29/18 [History] *Oyster Shell Calcium+D3 1 tab PO BID 01/29/18 [History] EPINEPHrine [Auvi-Q] 0.3 ml IM ASDIRECTED PRN 01/29/18 [History] Fluticasone Propionate [Flonase Allergy Relief] 2 sprays MILLY DAILY PRN 01/29/18 [History] Hydrocodone/Acetaminophen [Hydrocodon-Acetaminophen 5-325] 1 mg PO ASDIRECTED PRN 01/29/18 [History] Meclizine [Antivert] 25 mg PO TID PRN 01/29/18 [History] Nitroglycerin [Nitrostat] 0.4 mg SL ASDIRECTED PRN 01/29/18 [History] Ondansetron [Zofran ODT] 4 mg PO ASDIRECTED PRN 01/29/18 [History] Warfarin [Coumadin] 2.5 mg PO ASDIRECTED 01/29/18 [History] tiZANidine [Zanaflex] 2 mg PO Q6H PRN #20 tablet 01/31/18 [Rx] Referrals: Griffin Agustin MD [Primary Care Provider] - - Patient Data Vitals - Most Recent: Last Vital Signs Temp 97.9 F 01/31/18 10:44 Pulse 73 01/31/18 10:44 Resp 18 01/31/18 10:44 BP 119/52 L 01/31/18 10:44 Pulse Ox 97 01/31/18 10:44 Weight - Most Recent: 199 lb 11.186 oz I&O - Last 24 hours: Intake & Output 01/30/18 01/31/18 01/31/18 22:59 06:59 14:59 Intake Total 760 480 Balance 760 480 Lab Results - Last 24 hrs: Laboratory Results - last 24 hr 01/31/18 Range/Units 05:59 PT 23.9 H (9.5-12.0) sec INR 2.16 H (0.80-1.20) Med Orders - Current: Current Medications Acetaminophen (Tylenol Extra Strength) 1,000 mg PO TID [facility] Last Admin: 01/31/18 08:47 Dose: 1,000 mg Albuterol (Proventil Neb Soln) 2.5 mg NEB Q4H PRN PRN Reason: Dyspnea Last Admin: 01/31/18 05:25 Dose: 2.5 mg Arformoterol Tartrate (Brovana) 15 mcg INH BIDRT [facility] Last Admin: 01/31/18 08:41 Dose: 15 mcg Calcium Carbonate/Glycine (Tums) 500 mg PO Q2H PRN PRN Reason: Indigestion Last Admin: 01/31/18 09:36 Dose: 500 mg Fluticasone Propionate (Flonase) 0 gm NASBOTH DAILY PRN PRN Reason: NASAL CONGESTION Hydromorphone HCl (Dilaudid) 0.5 mg IVPUSH Q2H PRN PRN Reason: Pain (severe 7-10) Lactobacillus Rhamnosus (Culturelle) 1 cap PO DAILY [facility] Last Admin: 01/31/18 08:45 Dose: 1 cap Loperamide HCl (Imodium) 2 mg PO TID PRN PRN Reason: Diarrhea Magnesium Hydroxide (Milk Of Magnesia) 30 ml PO BID PRN PRN Reason: Constipation Last Admin: 01/30/18 10:14 Dose: 30 ml (Cetirizine [Zyrtec] (10 Mg)*Pt Own Med) 10 mg PO DAILY [facility] Last Admin: 01/31/18 08:48 Dose: 10 mg Cyclosporine [ (Restasis] Pt Own) 1 drop EYEBOTH BID [facility] Last Admin: 01/31/18 08:48 Dose: 1 drop (Furosemide [Lasix] (40 Mg)*Pt Own Med*) 40 mg PO DAILY [facility] Last Admin: 01/31/18 08:46 Dose: 40 mg (Levothyroxine [ Synthroid] 112 Mcg)* Pt Own Med* 112 mcg PO DAILY@0730 [facility] Last Admin: 01/31/18 08:43 Dose: 112 mcg (Meclizine [Antivert (] 25 Mg)*Pt Own Med*) 25 mg PO TID PRN PRN Reason: Muscle Spasm (Metoprolol Tartrate [Lopressor] 50 Mg)* Pt Own Med* 50 mg PO BID [facility] Last Admin: 01/31/18 08:46 Dose: 50 mg (Paroxetine Hcl [ Paroxetine Hcl] 40 Mg)*Pt Own Med* 40 mg PO DAILY [facility] Last Admin: 01/31/18 08:46 Dose: 40 mg (Sucralfate [ Sucralfate] 1 Gm)*Pt Own Med* 1 gm PO QIDACANDBED [facility] Last Admin: 01/31/18 08:44 Dose: 1 gm Ondansetron HCl (Zofran Odt) 4 mg PO Q6H PRN PRN Reason: Nausea Omeprazole 40 Mg (Caps *Pt Own Med*) 40 each PO DAILY@0730 [facility] Last Admin: 01/31/18 08:44 Dose: 40 each Prednisone (Prednisone) 5 mg PO DAILY [facility] Last Admin: 01/31/18 08:47 Dose: 5 mg Sodium Chloride (Saline Flush) 10 ml FLUSH ASDIRECTED PRN PRN Reason: Keep Vein Open Last Admin: 01/29/18 15:52 Dose: 10 ml Tizanidine HCl (Zanaflex) 2 mg PO Q6H PRN PRN Reason: Muscle Spasm Last Admin: 01/31/18 05:19 Dose: 2 mg Tramadol HCl (Ultram) 50 mg PO Q4H PRN PRN Reason: Pain Last Admin: 01/31/18 09:35 Dose: 50 mg Trolamine Salicylate (Aspercreme 10%) 0 gm TOP Q1H PRN PRN Reason: back pain Last Admin: 01/31/18 11:04 Dose: 1 applic Warfarin Sodium (Coumadin) 0 mg PO DAILY@1300 [facility] Discontinued Medications Cyclobenzaprine HCl (Flexeril) 5 mg PO ONETIME ONE Stop: 01/29/18 13:32 Last Admin: 01/29/18 13:57 Dose: 5 mg Hydromorphone HCl (Dilaudid) 0.5 mg IM ONETIME ONE Stop: 01/29/18 13:30 Last Admin: 01/29/18 13:57 Dose: 0.5 mg Hydromorphone HCl (Dilaudid) 0.5 mg IVPUSH ONETIME ONE Stop: 01/29/18 15:33 Last Admin: 01/29/18 15:52 Dose: 0.5 mg Prednisone 5 Mg Tabs (*Pt Own Med*) 10 mg PO DAILY [facility] Prednisone (Prednisone) 10 mg PO DAILY [facility] Last Admin: 01/30/18 14:43 Dose: Not Given Prednisone (Prednisone) 0 mg PO DAILY [facility] Last Admin: 01/30/18 14:43 Dose: Not Given Warfarin Sodium (Coumadin) 2.5 mg PO ONETIME ONE Stop: 01/29/18 16:51 Last Admin: 01/29/18 17:59 Dose: Not Given Warfarin Sodium (Coumadin) 5 mg PO DAILY@1300 [facility] Stop: 01/30/18 13:01 Last Admin: 01/30/18 14:32 Dose: 5 mg Warfarin Sodium (Coumadin) 0 mg PO ONETIME ONE Stop: 01/29/18 18:01 Last Admin: 01/29/18 17:58 Dose: 2.5 mg *Q Meaningful Use (DIS) - VTE *Q VTE Criteria *Q: - Stroke *Q Stroke Criteria *Q: - AMI *Q AMI Criteria *Q:
[2018-01-31 20:05] VITALS: BP 118/58
[2018-02-01] MEDS: Acetaminophen 500 MG Tab PO SCH (08:57)
[2018-02-01] MEDS: tiZANidine 2 MG Tab PO PRN (08:57)
[2018-02-01] MEDS: traMADol 50 MG Tab PO PRN (08:57)
[2018-02-01] MEDS: OMEPRAZOLE 40 MG PO SCH (09:00)
[2018-02-01] MEDS: CETIRIZINE 10 MG PO SCH (09:00)
[2018-02-01] MEDS: CYCLOSPORINE EYEBOTH SCH (09:01)
[2018-02-01] MEDS: Lactobacillus Rhamnosus GG (Probiotic) Cap PO SCH (09:01)
[2018-02-01] MEDS: PREDNISONE 5 MG PO SCH (09:04)
[2018-02-01] MEDS: METOPROLOL TARTRATE 50 MG PO SCH (09:04)
== END 2018-02-01 09:25 | disposition home or self-care (01) ==
LOC: JP.ED 12:47 → JP.MS 16:03
PROVIDERS: ADMIT Internal Medicine; ATTEND Internal Medicine
DX: M62.830 Muscle spasm of back (principal); S32.000A Wedge compression fracture of unspecified lumbar vertebra, initial encounter for closed fracture; S22.000A Wedge compression fracture of unspecified thoracic vertebra, initial encounter for closed fracture; J44.9 Chronic obstructive pulmonary disease, unspecified; K21.9 Gastro-esophageal reflux disease without esophagitis; I25.10 Atherosclerotic heart disease of native coronary artery without angina pectoris; K52.9 Noninfective gastroenteritis and colitis, unspecified; E03.9 Hypothyroidism, unspecified; E66.9 Obesity, unspecified; F41.9 Anxiety disorder, unspecified; F32.9 Major depressive disorder, single episode, unspecified; M35.3 Polymyalgia rheumatica; Z79.01 Long term (current) use of anticoagulants; Z79.899 Other long term (current) drug therapy; Z88.1 Allergy status to other antibiotic agents; Z88.2 Allergy status to sulfonamides; Z88.8 Allergy status to other drugs, medicaments and biological substances; Z68.30 Body mass index [BMI] 30.0-30.9, adult; Z90.49 Acquired absence of other specified parts of digestive tract; Z90.710 Acquired absence of both cervix and uterus; Z95.5 Presence of coronary angioplasty implant and graft; Z86.711 Personal history of pulmonary embolism
CPT/HCPCS: 36415; 71045; 72128; 80053; 81001; 84443; 85025; 85027; 85610; 86140; 94640; 96372; 96374; 97035; 97140; 97162; 97530; 99285; A9270; G0378; J1170; J7050; J7605

== ENCOUNTER 2018-02-17 21:14 | Emergency (ER) | payer MEDICARE, BC ==
[2018-02-17 21:20] VITALS: BP 140/72
--- NOTE | 2018-02-17 22:10 | EDM.PDOC ---
ED HPI GENERAL MEDICAL PROBLEM - General Chief Complaint: General Stated Complaint: fell Time Seen by Provider: 02/17/18 21:55 Source of Information: Reports: Patient, Old Records History Limitations: Reports: No Limitations - History of Present Illness INITIAL COMMENTS - FREE TEXT/NARRATIVE: 87 yo female who lives alone slipped in her home and fell incurring a R elbow skin tear. She has no other concerns at this time except that she was started on an unknown to her antibiotic today for a UTI and she feels she has had chills. She is on warfarin and had an INR of 2.0 earlier today. Here via EMS. Review of her clinic notes shows MacroBid was started today. UTI dx was earlier today. Onset: Today Onset Date: 02/17/18 Onset Time: 21:00 Duration: Minutes: Location: Reports: Upper Extremity, Right Quality: Reports: Burning Severity: Mild Improves with: Reports: Rest Worsens with: Reports: Other (touching wound) Context: Reports: Trauma (fall) Associated Symptoms: Reports: Fever/Chills (no def'n fever) Treatments COMBINATION MAN: Reports: Other (see below) (MacroBid one dose for UTI) back pain Pain Score (Numeric/FACES): 5 - Related Data Allergies Allergy/AdvReac Type Severity Reaction Status Date / Time clindamycin Allergy Severe Difficulty Verified 02/17/18 21:48 Breathing ezetimibe [From Zetia] Allergy Severe Difficulty Verified 02/17/18 21:48 Breathing NSAIDS (Non-Steroidal Allergy Severe Airway Verified 02/17/18 21:48 Anti-Inflamma Tightness aspirin Allergy Intermediate Chest Pain Verified 02/17/18 21:48 ciprofloxacin HCl Allergy Rash Verified 02/17/18 21:48 [From Cipro] codeine Allergy Shortness Verified 02/17/18 21:48 of Breath oxycodone [From OxyContin] Allergy Hallucinati Verified 02/17/18 21:48 ons pravastatin Allergy Other Verified 02/17/18 21:48 Sulfa (Sulfonamide Allergy Shortness Verified 02/17/18 21:48 Antibiotics) of Breath amoxicillin trihydrate AdvReac Stomach Verified 02/17/18 21:48 [From Augmentin] Upset atorvastatin calcium AdvReac Muscle Verified 02/17/18 21:48 [From Lipitor] Aches isosorbide mononitrate AdvReac Headache Verified 02/17/18 21:48 [From Imdur] morphine AdvReac Hallucinati Verified 02/17/18 21:48 ons potassium clavulanate AdvReac Stomach Verified 02/17/18 21:48 [From Augmentin] Upset pregabalin [From Lyrica] AdvReac Dizziness Verified 02/17/18 21:48 rosuvastatin calcium AdvReac Other Verified 02/17/18 21:48 [From Crestor] simvastatin [From Zocor] AdvReac Other Verified 01/29/18 16:52 Jdwlvjq-Hur-Viv Reductase AdvReac Muscle Verified 02/17/18 21:48 Inhibitor Aches Home Meds: Home Meds PARoxetine HCl [Paroxetine HCl] 40 mg PO DAILY 08/16/13 [History] Lactobacillus Acidophilus [Probiotic] 1 each PO DAILY 03/05/14 [History] Furosemide [Lasix] 40 mg PO DAILY 08/04/15 [History] Levothyroxine [Synthroid] 112 mcg PO DAILY 08/04/15 [History] Omeprazole Magnesium [Prilosec Otc] 40 mg PO DAILY 08/04/15 [History] Cetirizine [ZyrTEC] 10 mg PO DAILY 02/26/16 [History] Loperamide [Imodium AD] 2 mg PO TID PRN 02/28/16 [History] cycloSPORINE [Restasis] 1 drop EYEBOTH BID 11/18/16 [History] Metoprolol Tartrate [Lopressor] 50 mg PO BID 11/26/16 [History] Cyclobenzaprine [Flexeril] 5 mg PO BID PRN 05/12/17 [History] predniSONE [Prednisone] 5 mg PO DAILY 05/12/17 [History] Albuterol [IJD: Albuterol] 2.5 mg NEB Q4H PRN #60 nebule 05/14/17 [Rx] Calcium Carbonate/Vitamin D3 [Calcium 500 + Vit D 400] 1 each PO BID #60 tablet 05/14/17 [Rx] Arformoterol [Brovana] 2 ml IH BID 01/28/18 [History] Ipratropium-Albuterol 3 ml NEB Q4HR PRN 01/28/18 [History] Sucralfate 1 gm PO QID 01/28/18 [History] *Miralax PO DAILY 01/29/18 [History] *Oyster Shell Calcium+D3 1 tab PO BID 01/29/18 [History] EPINEPHrine [Auvi-Q] 0.3 ml IM ASDIRECTED PRN 01/29/18 [History] Fluticasone Propionate [Flonase Allergy Relief] 2 sprays MILLY DAILY PRN 01/29/18 [History] Hydrocodone/Acetaminophen [Hydrocodon-Acetaminophen 5-325] 1 mg PO ASDIRECTED PRN 01/29/18 [History] Meclizine [Antivert] 25 mg PO TID PRN 01/29/18 [History] Nitroglycerin [Nitrostat] 0.4 mg SL ASDIRECTED PRN 01/29/18 [History] Ondansetron [Zofran ODT] 4 mg PO ASDIRECTED PRN 01/29/18 [History] Warfarin [Coumadin] 2.5 mg PO ASDIRECTED 01/29/18 [History] tiZANidine [Zanaflex] 2 mg PO Q6H PRN #20 tablet 01/31/18 [Rx] Past Medical History HEENT History: Reports: Allergic Rhinitis, Cataract, Impaired Vision, Sinusitis Cardiovascular History: Reports: Angina, Arrhythmia, Blood Clots/VTE/DVT, CAD, Heart Murmur, High Cholesterol, Hypertension, IN, SOB on Exertion Respiratory History: Reports: Bronchitis, Recurrent, COPD, PE, Pneumonia, Recurrent, Other (See Below) Other Respiratory History: oxygen dependent @ times. lung nodules Gastrointestinal History: Reports: Chronic Diarrhea, Colon Polyp, Gastritis, GERD, Hemorrhoids, Hepatitis, Hiatal Hernia, Irritable Bowel Syndrome, Other ( See Below) Other Gastrointestinal History: thickening c diff x2 Genitourinary History: Reports: Urinary Incontinence [employer] WORKER History: Reports: Dysfunctional Uterine Bleeding, Ectopic , Fibroids, , Spontaneous Musculoskeletal History: Reports: Arthritis, Back Pain, Chronic, Fracture, Fibromyalgia, Neck Pain, Chronic, Osteoarthritis, Other (See Below) Other Musculoskeletal History: Polymyalgia rheumatica. T12 compression fracture , patient reports 5 other compression fractures in her history. R trigger fingers 3-4-5. Neurological History: Reports: Vertigo, Other (See Below) Other Neuro History: bilateral optic neuropathy inner ear problems Psychiatric History: Reports: Anxiety, Depression Endocrine/Metabolic History: Reports: Hypothyroidism, Obesity/BMI 30+ Hematologic History: Reports: Anemia, Blood Transfusion(s), Iron Deficiency Oncologic (Cancer) History: Reports: Other (See Below) Other Oncologic History: skin cancer Dermatologic History: Reports: Other (See Below) Other Dermatologic History: squamous cell CA- arm ,forehead - Infectious Disease History Infectious Disease History: Reports: Chicken Pox, Measles, Mumps, Rubella, Shingles Other Infectious Disease History: states some type of hepatitis - Past Surgical History HEENT Surgical History: Reports: Cataract Surgery, Laser Surgery, Tonsillectomy Other HEENT Surgeries/Procedures: Surgery in right ear. Cardiovascular Surgical History: Reports: Percutaneous Transluminal Angioplasty Other Cardiovascular Surgeries/Procedures: Angiogram in the past in [place]. They wouldnt do anything due to "blockage was in a bad spot" GI Surgical History: Reports: Appendectomy, Cholecystectomy, Colonoscopy, EGD, [place] Fundoplication, Polypectomy, Small Bowel Female Surgical History: Reports: Breast Biopsy, D&C, Hysterectomy, Oophorectomy Musculoskeletal Surgical History: Reports: Knee Replacement Other Musculoskeletal Surgeries/Procedures:: right per patient Oncologic Surgical History: Reports: Biopsy of Breast Dermatological Surgical History: Reports: Skin Biopsy Social & Family History - Family History Family Medical History: Noncontributory Cardiac: Reports: Afib - Tobacco Use Smoking Status *Q: Never Smoker Years of Tobacco use: 25 Packs/Tins Daily: 0.5 Used Tobacco, but Quit: Yes Month/Year Tobacco Last Used: 0 Second Hand Smoke Exposure: No - Caffeine Use Caffeine Use: Reports: Coffee, Soda - Alcohol Use Days Per Week of Alcohol Use: 0 Number of Drinks Per Day: 0 Total Drinks Per Week: 0 - Recreational Drug Use Recreational Drug Use: No ED ROS GENERAL - Review of Systems Review Of Systems: See Below Constitutional: Reports: Chills. Denies: Fever HEENT: Reports: No Symptoms Respiratory: Reports: No Symptoms Cardiovascular: Reports: No Symptoms GI/Abdominal: Reports: No Symptoms : Reports: Dysuria Musculoskeletal: Reports: No Symptoms Skin: Reports: Wound (skin tear near the R elbow) Neurological: Reports: No Symptoms Psychiatric: Reports: No Symptoms ED EXAM, GENERAL - Physical Exam Exam: See Below Exam Limited By: No Limitations General Appearance: Alert, WD/WN, No Apparent Distress Eye Exam: Bilateral Eye: Normal Inspection Ears: Normal External Exam, Normal Canal, Hearing Grossly Normal Ear Exam: Bilateral Ear: Auricle Normal, Canal Normal Nose: Normal Inspection, Normal Mucosa, No Blood Throat/Mouth: Normal Inspection, Normal Lips, Normal Oropharynx, Normal Voice, No Airway Compromise Head: Atraumatic, Normocephalic Neck: Normal Inspection, Supple Respiratory/Chest: No Respiratory Distress, Lungs Clear, Normal Breath Sounds, No Accessory Muscle Use Cardiovascular: Regular Rate, Rhythm, No Edema GI/Abdominal: Normal Bowel Sounds, Soft, Non-Tender, No Distention Back Exam: Normal Inspection. No: CVA Tenderness (R), CVA Tenderness (L) Extremities: Normal Inspection, Normal Range of Motion, No Pedal Edema Neurological: Alert, Oriented, CN II-XII Intact, Normal Cognition, No Motor/ Sensory Deficits Psychiatric: Normal Affect, Normal Mood Skin Exam: Warm, Dry, No Rash, Ecchymosis (R anterior knee), Wound/Incision ( skin tear near right elbow about 7 cm in length. ) Course - Vital Signs Text/Narrative:: Orthostatic vitals normal Last Recorded V/S: Last Vital Signs Temp 35.9 C 02/17/18 21:49 Pulse 72 02/17/18 21:49 Resp 14 02/17/18 21:49 BP 140/72 02/17/18 21:49 Pulse Ox 91 L 02/17/18 21:49 Orthostatic Blood Pressure [ 169/86 Standing] Orthostatic Blood Pressure [ 160/83 Sitting] Orthostatic Blood Pressure [ 152/65 Supine] - Orders/Labs/Meds Orders: Active Orders 24 hr Category Date Time Status Orthostatic Vital Signs [RC] ASDIRECTED Care 02/17/18 22:21 Active Vaccines to be Administered [RC] PER UNIT ROUTINE Care 02/17/18 22:19 Active cefTRIAXone [Rocephin] Med 02/17/18 23:08 Once 1 gm IM ONETIME ONE Labs: Laboratory Tests 02/17/18 02/17/18 Range/Units 22:00 22:00 WBC 12.5 H (4.5-11.0) K/uL RBC 3.90 (3.30-5.50) M/uL Hgb 11.2 L (12.0-15.0) g/dL Hct 37.7 (36.0-48.0) % MCV 97 (80-98) fL MCH 29 (27-31) pg MCHC 30 L (32-36) % Plt Count 276 (150-400) K/uL Sodium 144 (140-148) mmol/L Potassium 4.1 (3.6-5.2) mmol/L Chloride 104 (100-108) mmol/L Carbon Dioxide 36 H (21-32) mmol/L Anion Gap 8.1 (5.0-14.0) mmol/L BUN 14 (7-18) mg/dL Creatinine 0.8 (0.6-1.0) mg/dL Est Cr Clr Drug Dosing 41.17 mL/min Estimated GFR (MDRD) > 60 (>60) Glucose 83 (74-106) mg/dL Calcium 8.8 (8.5-10.1) mg/dL Meds: Medications Discontinued Medications Generic Name Dose Route Start Last Admin Trade Name Freq PRN Reason Stop Dose Admin Acetaminophen 1,000 mg 02/17/18 22:47 Tylenol Extra Strength PO 02/17/18 22:48 ONETIME ONE Bacitracin 1 dose 02/17/18 22:11 02/17/18 22:20 Bacitracin Oint 1 Gm TOP 02/17/18 22:12 1 dose ONETIME ONE Administration Diphtheria/Tetanus/Acell Pertussis 0.5 ml 02/17/18 22:19 02/17/18 22:33 Adacel IM 02/17/18 22:20 0.5 ml .ONCE ONE Administration Departure - Departure Time of Disposition: 23:25 Disposition: Home, Self-Care 01 Condition: Good Clinical Impression: Cystitis, Fall in elderly patient Skin tear of elbow without complication Qualifiers: Encounter type: initial encounter Laterality: right Qualified Code(s): S51.011A - Laceration without foreign body of right elbow, initial encounter - Discharge Information Referrals: PCP,None [Primary Care Provider] - Forms: ED Department Discharge - My Orders Last 24 Hours: My Active Orders 02/17/18 22:19 Vaccines to be Administered [RC] PER UNIT ROUTINE 02/17/18 22:21 Orthostatic Vital Signs [RC] ASDIRECTED 02/17/18 23:08 cefTRIAXone [Rocephin] 1 gm IM ONETIME ONE - Assessment/Plan Last 24 Hours: My Active Orders 02/17/18 22:19 Vaccines to be Administered [RC] PER UNIT ROUTINE 02/17/18 22:21 Orthostatic Vital Signs [RC] ASDIRECTED 02/17/18 23:08 cefTRIAXone [Rocephin] 1 gm IM ONETIME ONE
[2018-02-17] MEDS ORDERED: Bacitracin Oint 1 GM U/D Packet TOP ONE (22:11)
[2018-02-17] MEDS ORDERED: Diphtheria,Pertussis(Acell),Tetanus Vaccine 0.5 ML SDV IM ONE (22:19)
[2018-02-17] MEDS ORDERED: Acetaminophen 500 MG Tab PO ONE (22:47)
[2018-02-17] MEDS ORDERED: cefTRIAXone 1 GM Vial IM ONE (23:08)
[2018-02-17] MEDS ORDERED: cefTRIAXone 1 GM, Lidocaine 1% 2.1 ML IM ONE ×2 (23:30)
== END 2018-02-18 00:02 | disposition home or self-care (01) ==
LOC: JP.ED 21:14
DX: S51.011A Laceration without foreign body of right elbow, initial encounter (principal); N30.90 Cystitis, unspecified without hematuria; E78.00 Pure hypercholesterolemia, unspecified; I10 Essential (primary) hypertension; I25.2 Old myocardial infarction; E03.9 Hypothyroidism, unspecified; Z88.1 Allergy status to other antibiotic agents; Z88.5 Allergy status to narcotic agent; Z88.6 Allergy status to analgesic agent; Z88.2 Allergy status to sulfonamides; Z88.8 Allergy status to other drugs, medicaments and biological substances; Z79.899 Other long term (current) drug therapy; Z87.891 Personal history of nicotine dependence; Z23 Encounter for immunization; W01.0XXA Fall on same level from slipping, tripping and stumbling without subsequent striking against object, initial encounter
CPT/HCPCS: 36415; 80048; 85027; 90471; 90715; 96372; 99284; A9270; J0696

== ENCOUNTER 2018-04-08 07:19 | Day surgery (SDC) | payer MEDICARE, BC ==
[2018-04-08] MEDS ORDERED: Dextrose 5%-Lactated Ringers 1,000 ML IV SCH (08:00)
[2018-04-08] MEDS ORDERED: Propofol 200 MG/20 ML SDV ONE (09:14)
[2018-04-08 10:52] VITALS: BP 144/86
--- NOTE | 2018-04-11 13:50 | OR ---
DATE OF PROCEDURE: 04/08/2018 PREOPERATIVE DIAGNOSIS: History of Kessler's esophagus. POSTOPERATIVE DIAGNOSES: 1. History of Kessler's esophagus with mild ongoing inflammation at esophagogastric junction. 2. Mild antral gastritis and duodenitis. OPERATIVE PROCEDURE: Esophagogastroduodenoscopy with: 1. Biopsy of esophagogastric junction for histologic evaluation. 2. Biopsies of antrum for CLOtest. ANESTHESIA: IV sedation. INDICATIONS FOR PROCEDURE: An 87-year-old female presenting with a plan for followup endoscopy for surveillance of her Kessler's esophagus. Presently, she is on omeprazole 40 mg a day and with this has fairly good symptom control. Plan is to proceed with an upper GI endoscopy with biopsies as indicated. Potential risks including bleeding and perforation were discussed, and the patient wishes to proceed. DETAILS OF PROCEDURE: The patient was taken to the operating room and placed in a left lateral decubitus position. IV sedation was administered, after which the upper GI endoscope was passed orally through the length of the esophagus and through the esophagogastric junction into the stomach with retroflexion view of the fundus, thereafter through the pyloric channel and into the proximal duodenum. Findings included normal hypopharynx, larynx, and upper esophageal sphincter. The esophageal body likewise was unremarkable. At the EG junction, there was some mild inflammation with that area being somewhat reddened and friable. There was some obvious upward extension of the gastroesophageal junction mucosal line consistent with history of Kessler's esophagus. Within the remainder of the stomach, there was some mild redness in the antrum and proximal duodenum. Otherwise, no erosions or ulcers were seen in those areas. At this point, biopsies were obtained from the antrum and sent for CLOtest for H. pylori. Multiple biopsies were then obtained from esophagogastric junction, sent for histologic evaluation. Minimal bleeding from the biopsy sites was seen and the procedure then concluded. The patient clinically, is fairly well controlled at this point with omeprazole. We will continue that and assuming the patient's health remains reasonably well, a followup endoscopy in two years would be planned to continue for surveillance of Kessler's esophagus. Gene Garcia MD /[id number]
== END 2018-04-08 11:30 | disposition home or self-care (01) ==
LOC: JP.SDS 07:19
PROVIDERS: ATTEND Surgery
DX: K22.70 Barrett's esophagus without dysplasia (principal); K20.9 Esophagitis, unspecified; K29.70 Gastritis, unspecified, without bleeding; K29.80 Duodenitis without bleeding; I11.0 Hypertensive heart disease with heart failure; I50.9 Heart failure, unspecified; E66.9 Obesity, unspecified; E11.9 Type 2 diabetes mellitus without complications; I26.99 Other pulmonary embolism without acute cor pulmonale; I25.10 Atherosclerotic heart disease of native coronary artery without angina pectoris; I25.2 Old myocardial infarction; K21.9 Gastro-esophageal reflux disease without esophagitis; Z79.899 Other long term (current) drug therapy; Z99.81 Dependence on supplemental oxygen
CPT/HCPCS: 43239; 87081; J2704; J7042; 88305